=== PATIENT | female | born 1935 | race Caucasian/White ===

== ENCOUNTER 2021-11-30 20:02 | Inpatient (IN) | payer OTHER ==
--- NOTE | 2021-11-30 20:32 | RAD REPORT ---
EXAM DESCRIPTION: CT - Ct Stroke Brain Wo Cont - 11/30/2021 8:24 pm CLINICAL HISTORY: tia COMPARISON: none TECHNIQUE: Computed axial tomography of the head was obtained. All CT scans are performed using dose optimization technique as appropriate and may include automated exposure control or mA/KV adjustment according to patient size. FINDINGS: An intracranial bleed is not seen . The ventricles are normal in caliber. No extra-axial fluid collection is noted. Low-density involving the right caudate has the appearance of an old lacunar infarction. . Small low-density area right parietal lobe also probably old infarcti on. Mild low-density within periventricular, deep and subcortical white matter likely ischemic changes se condary to small vessel disease Fluid within the sinuses/ mastoids is not seen. IMPRESSION: No acute intracranial abnormality is seen. If patient's symptoms persist MRI of the bra in would be recommended. Dr Luciano of the emergency room was notified at 8:26 p.m. November 30, 2021
[2021-11-30 20:39] LABS: Absolute Lymphocytes (CBC) 2.1 K/uL (0.7-4.9); Hematocrit 34.5 % (36.0-45.0); MPV 8.5 fL (7.6-11.3)
[2021-11-30 20:40] LABS: Protime INR 1.15
--- NOTE | 2021-11-30 20:44 | ER ---
Nurse's Notes [facility] Name: Tosha Osorio Age: 85 yrs Sex: Female : 1935 Arrival Date: 11/30/2021 Time: 20:13 Bed 7 Private MD: Diagnosis: Cerebral infarction, unspecified;Aphasia Presentation: 11/30 20:24 Chief complaint: EMS states: pt has hx of strokes and polio, normally able to sm5 communicate, around 7pm tonight started to be unable to speak and having R sided weakness. multiple falls daily. ecchymosis to L side of her forehead. Coronavirus screen: At this time, the client does not indicate any symptoms associated with coronavirus-19. Ebola Screen: No symptoms or risks identified at this time. Initial Sepsis Screen: Does the patient meet any 2 criteria? No. Patient's initial sepsis screen is negative. Does the patient have a suspected source of infection? No. Patient's initial sepsis screen is negative. Risk Assessment: Do you want to hurt yourself or someone else? Patient reports no desire to harm self or others. Onset of symptoms was November 30, 2021 at 19:00. 20:24 Method Of Arrival: EMS: [facility] 5 20:24 Acuity: SULAIMAN 2 sm5 20:30 An acute neurological deficit is present. The patients blood glucose was checked before mk arriving to the hospital and was found to be normal. Triage Assessment: 20:30 The onset of the patients symptoms was November 30, 2021 at 19:00. mk 20:30 Neuro: Reports unable to report. mk 20:32 General: Appears emaciated, Behavior is cooperative. Pain: Unable to use pain scale. sm5 Aphasic. Neuro: Stroke Activation: Physician: Stroke Attending; Name: Mustapha; Notified At: 20:15; Arrived At: Physician: Chief Stroke Resident; Name: ; Notified At: 20:15; Arrived At: Physician: Stroke Resident; Name: ; Notified At: 20:15; Arrived At: Physician: ED Attending; Name: ; Notified At: 20:15; Arrived At: Physician: ED Resident; Name: ; Notified At: 20:15; Arrived At: Historical: - Allergies: 20:30 Morphine; sm5 20:30 venlafaxine; sm5 20:30 Codeine; sm5 - PMHx: 20:30 Polio; Cerebrovascular accident; Hypertensive disorder; sm5 - Immunization history:: Adult Immunizations unknown. - Family history:: not pertinent. - Social history:: Smoking status: unknown. Screenin:28 Abuse screen: Denies threats or abuse. Denies injuries from another. Nutritional sm5 screening: No deficits noted. Tuberculosis screening: No symptoms or risk factors identified. Fall Risk Fall in past 12 months (25 points). Secondary diagnosis (15 points) impaired mobility, CVA, IV access (20 points). Ambulatory Aid- None/Bed Rest/Nurse Assist (0 pts). Gait- Weak (10 pts.). Mental Status- Oriented to own ability (0 pts). Total Peacock Fall Scale indicates High Risk Score (45 or more points). Fall prevention measures have been instituted. Side Rails Up X 2 Frequent Obs/Assessments Occuring Family Present and informed to notify staff if the need to leave the bedside. Assessment: 20:15 General: Appears ill, slender. Pain: Unable to use pain scale. Patient appears quiet. mk 20:15 VAN Scoring: Arm Drift: Flaccid/no antigravity The patient has not been NPO before mk screening. The patient is currently on the following diet: REGULAR AT HOME NPO AT HOSPITAL The patient exhibits slurred or garbled speech. Provider notified of the indication for Speech Therapy consult. The patient is exhibiting difficulty speaking. Provider notified of the indication for Speech Therapy consult. The patient does not exhibit difficulty understanding words. The patient is able to swallow own secretions with no drooling or need for suction. UNABLE TO DO DUE TO LACK OF REPSONSES UNABLE TO DO DUE TO LACK OF RESPONSE The patient failed the bedside swallow screening. The patient will be kept NPO until cleared by Speech Therapy or Physician. Provider notified of bedside swallow screening results: Wilber Luciano MD. 20:15 Neuro: Level of Consciousness is awake, obeys commands, Oriented to pt quiet unable to mk assess . Office Support are equal bilaterally Weakness in left leg(s) Facial droop on right, Reports. Cardiovascular: Heart tones S1 S2 Capillary refill < 3 seconds Clubbing of nail beds is absent JVD is absent Patient's skin is warm and dry. Pulses are 2+ in right radial artery, right dorsalis pedis artery, left radial artery and left dorsalis pedis artery Rhythm is atrial fibrillation. Respiratory: Airway is patent Respiratory effort is even, unlabored, Respiratory pattern is regular, symmetrical. GI: Abdomen is flat, non-distended. GI: Abdomen is Bowel sounds present X 4 quads. Abd is soft and non tender. : No signs and/or symptoms were reported regarding the genitourinary system. Derm: Skin is fragile, Skin is dry, Skin is pink, warm \T\ dry. Skin temperature is warm Wound noted back, right arm and left arm Wound is R hand skin tear, R arm petechiae, bruising L AC, abrasion R shoulder. Musculoskeletal: Circulation, motion, and sensation intact. Capillary refill < 3 seconds, Range of motion: intact in all extremities. 21:00 T-PA (Activase) Screening: Indications: Definite evidence of stroke, ischemic, embolic, mk or hypertensive: Yes. Treatment will start within 4.5 hours onset of symptoms: Yes. No evidence of intracranial hemorrhage or CT of head and no evidence of peripheral hemorrhage or recent CVA: Yes. Consent for thrombolytic therapy: Yes. 22:00 Reassessment: Patient and/or family updated on plan of care and expected duration. Pain mk level reassessed. 22:28 General:. Vital Signs: 20:24 BP 172 / 81; Pulse 72; Resp 22; Pulse Ox 100% on R/A; Weight 33.57 kg; sm5 20:39 BP 186 / 73; Pulse 105; Resp 17; Pulse Ox 100% on R/A; mk 20:52 BP 159 / 101; Pulse 85; Resp 23; Pulse Ox 100% on R/A; mk 21:03 BP 181 / 81; Pulse 92; Resp 18; Pulse Ox 100% on R/A; mk 21:08 BP 165 / 115; Pulse 81; Resp 16; Pulse Ox 100% on R/A; mk 21:13 BP 182 / 91; Pulse 80; Resp 25; Pulse Ox 100% on R/A; mk 21:18 BP 170 / 94; Pulse 86; Resp 18; Pulse Ox 97% ; mk 21:23 BP 179 / 92; Pulse 95; Resp 18; Pulse Ox 98% ; tw5 21:28 BP 175 / 102; Pulse 95; Resp 21; Pulse Ox 98% on R/A; tw5 21:33 BP 121 / 88; Pulse 96; Resp 22; Pulse Ox 98% on R/A; tw5 21:38 BP 152 / 89; Pulse 88; Resp 19; Pulse Ox 99% on R/A; tw5 21:43 BP 182 / 99; Pulse 99; Resp 21; Pulse Ox 99% on R/A; mk 21:48 BP 185 / 108; Pulse 95; Resp 29; Pulse Ox 97% on R/A; mk 21:53 BP 173 / 89; Pulse 96; Resp 21; Pulse Ox 97% on R/A; mk 21:58 BP 176 / 109; Pulse 93; Resp 28; Pulse Ox 98% on R/A; mk 22:03 BP 183 / 95; Pulse 94; Resp 18; Pulse Ox 96% on R/A; mk 22:18 BP 183 / 95; Pulse 94; Resp 18; Pulse Ox 99% on R/A; mk 22:30 BP 182 / 94; Pulse 96; Resp 18; Pulse Ox 98% on R/A; mk 22:45 BP 182 / 92; Pulse 92; Resp 27; Pulse Ox 98% on R/A; mk 23:00 BP 163 / 100; Pulse 98; Resp 21; Pulse Ox 99% on R/A; mk 23:15 BP 146 / 111; Pulse 94; Resp 21; Pulse Ox 98% on R/A; mk 23:30 BP 140 / 92; Pulse 95; Resp 18; Pulse Ox 98% on R/A; mk 23:45 BP 172 / 93; Pulse 95; Resp 18; Pulse Ox 98% on R/A; mk 12/01 00:00 BP 172 / 93; Pulse 95; Resp 18; Pulse Ox 98% on R/A; mk 00:15 BP 160 / 102; Pulse 94; Resp 18; Pulse Ox 99% on R/A; mk 00:30 BP 171 / 109; Pulse 100; Resp 23; Pulse Ox 100% on R/A; mk 00:45 BP 171 / 102; Pulse 100; Resp 18; Pulse Ox 100% on R/A; mk 01:00 BP 176 / 86; Pulse 100; Resp 23; Pulse Ox 100% on R/A; mk 01:15 BP 115 / 107; Pulse 102; Resp 18; Pulse Ox 100% ; mk 01:30 BP 178 / 107; Pulse 90; Resp 20; Pulse Ox 100% on R/A; mk Roselien Coma Score: 11/30 20:39 Eye Response: spontaneous(4). Verbal Response: none(1). Motor Response: localizes mk pain(5). Total: . 20:52 Eye Response: spontaneous(4). Verbal Response: none(1). Motor Response: obeys mk commands(6). Total: . 21:03 Eye Response: spontaneous(4). Verbal Response: none(1). Motor Response: obeys mk commands(6). Total: . :08 Eye Response: spontaneous(4). Verbal Response: none(1). Motor Response: obeys mk commands(6). Total: . :13 Eye Response: spontaneous(4). Verbal Response: none(1). Motor Response: obeys mk commands(6). Total: . 21:18 Eye Response: spontaneous(4). Verbal Response: none(1). Motor Response: localizes mk pain(5). Total: . 21:23 Eye Response: spontaneous(4). Verbal Response: none(1). Motor Response: obeys mk commands(6). Total: . :28 Eye Response: spontaneous(4). Verbal Response: none(1). Motor Response: obeys mk commands(6). Total: . 21:33 Eye Response: spontaneous(4). Verbal Response: incomprehensible(2). Motor Response: mk obeys commands(6). Total: . 21:38 Eye Response: spontaneous(4). Verbal Response: incomprehensible(2). Motor Response: mk obeys commands(6). Total: 12. 21:43 Eye Response: spontaneous(4). Verbal Response: incomprehensible(2). Motor Response: mk obeys commands(6). Total: . 21:48 Eye Response: spontaneous(4). Verbal Response: incomprehensible(2). Motor Response: mk obeys commands(6). Total: . 21:53 Eye Response: spontaneous(4). Verbal Response: none(1). Motor Response: obeys mk commands(6). Total: . 21:58 Eye Response: spontaneous(4). Verbal Response: incomprehensible(2). Motor Response: mk obeys commands(6). Total: 12. 22:03 Eye Response: spontaneous(4). Verbal Response: incomprehensible(2). Motor Response: mk obeys commands(6). Total: 12. 22:18 Eye Response: spontaneous(4). Verbal Response: incomprehensible(2). Motor Response: mk obeys commands(6). Total: 12. 22:30 Eye Response: spontaneous(4). Verbal Response: oriented(5). Motor Response: obeys mk commands(6). Total: 15. 22:45 Eye Response: spontaneous(4). Verbal Response: incomprehensible(2). Motor Response: mk obeys commands(6). Total: 12. 23:00 Eye Response: spontaneous(4). Verbal Response: incomprehensible(2). Motor Response: mk localizes pain(5). Total: 11. 23:15 Eye Response: spontaneous(4). Verbal Response: incomprehensible(2). Motor Response: mk obeys commands(6). Total: 12. 23:30 Eye Response: spontaneous(4). Verbal Response: incomprehensible(2). Motor Response: mk obeys commands(6). Total: 12. 23:45 Eye Response: spontaneous(4). Verbal Response: incomprehensible(2). Motor Response: mk obeys commands(6). Total: 12. 10 00:00 Eye Response: spontaneous(4). Verbal Response: incomprehensible(2). Motor Response: mk obeys commands(6). Total: 12. 00:15 Eye Response: spontaneous(4). Verbal Response: incomprehensible(2). Motor Response: mk obeys commands(6). Total: 12. 00:30 Eye Response: spontaneous(4). Verbal Response: incomprehensible(2). Motor Response: mk obeys commands(6). Total: 12. 00:45 Eye Response: spontaneous(4). Verbal Response: incomprehensible(2). Motor Response: mk obeys commands(6). Total: 12. 01:00 Eye Response: spontaneous(4). Verbal Response: incomprehensible(2). Motor Response: mk obeys commands(6). Total: 12. 01:15 Eye Response: spontaneous(4). Verbal Response: incomprehensible(2). Motor Response: mk obeys commands(6). Total: 12. 01:30 Eye Response: spontaneous(4). Verbal Response: incomprehensible(2). Motor Response: mk obeys commands(6). Total: 12. NIH Stroke Scale Scores: 11/30 20:15 NIHSS Score: 21 mk 20:44 NIHSS Score: 21 fredrick 21:02 NIHSS Score: 21 mk 21:08 NIHSS Score: 22 mk 21:13 NIHSS Score: 21 mk 21:18 NIHSS Score: 20 mk 21:23 NIHSS Score: 20 mk 21:28 NIHSS Score: 17 mk 21:33 NIHSS Score: 18 mk 21:38 NIHSS Score: 17 mk 21:43 NIHSS Score: 19 mk 21:48 NIHSS Score: 20 mk 21:53 NIHSS Score: 17 mk 21:58 NIHSS Score: 17 mk 22:03 NIHSS Score: 17 mk 22:15 NIHSS Score: 16 mk 22:30 NIHSS Score: 20 mk 22:45 NIHSS Score: 16 mk 23:00 NIHSS Score: 17 mk 23:15 NIHSS Score: 17 mk 23:30 NIHSS Score: 16 mk /10 00:00 NIHSS Score: 18 mk 00:30 NIHSS Score: 15 mk 01:00 NIHSS Score: 16 mk 01:30 NIHSS Score: 16 mk ED Course: 11/30 20:13 Patient arrived in ED. fredrick 20:13 Wilber Luciano MD is Attending Physician. fredrick 20:20 Inserted saline lock: 18 gauge in right antecubital area, using aseptic technique. mk 20:20 Maintain EMS IV. Dressing intact. Good blood return noted. Gauge \T\ site: 20G RAC. mk dressing change . 20:24 CT Stroke Brain w/o Contrast In Process Unspecified. EDMS 20:24 Coco Soriano, JACQUELINE is Primary Nurse. sm5 20:28 Triage completed. sm5 20:29 Arm band placed on right wrist. sm5 20:29 Patient has correct armband on for positive identification. Placed in gown. Bed in low sm5 position. Call light in reach. Side rails up X2. monitoring tech on. Pulse ox on. NIBP on. 20:48 XRAY Chest (1 view) In Process Unspecified. EDMS 21:30 NT PRO-BNP Sent. mk 21:30 Troponin (emerg Dept Use Only) Sent. mk 22:27 Laz Gill MD is Hospitalizing Provider. fredrick 22:49 Jake Isaac MD is Hospitalizing Provider. la1 23:41 CT Head Angio In Process Unspecified. EDMS 23:41 CT Neck Angio In Process Unspecified. EDMS 12/01 01:23 Patient admitted, IV remains in place. mk 01:28 Primary Nurse role handed off by Coco Soriano RN mk 01:28 Ana M Arshad, JACQUELINE is Primary Nurse. 05:20 No provider procedures requiring assistance completed. diana Administered Medications: 11/30 20:30 Drug: NS 0.9% 1000 ml Route: IV; Rate: 1 bolus; Site: right antecubital; 20:30 Drug: foLIC Acid 1 mg Route: IVPB; Site: right antecubital; tw5 21:02 Drug: ACTIvase (alteplase) {Co-Signature: diana (Ana M Arshad RN).} Route: IV tw5 Thrombolytics; Rate: calculated rate; Infused Over: 60 mins; 21:10 Drug: Labetalol 5 mg Route: IVP; Site: right antecubital; mk 23:21 Follow up: Response: No adverse reaction tw5 23:21 Not Given (Hemodynamic Parameters; no longer appropriate, ordered to maintain BP tw5 parameters during TPA): Labetalol 5 mg IVP once Outcome: 20:43 ER care complete, transfer ordered by . fredrick 22:30 Decision to Hospitalize by Provider. [facility] 12/01 01:23 Admitted to ICU accompanied by nurse, via stretcher, on monitor, with chart, Report diana called to Daphnie PHILLIPS critical Instructed on the need for admit. 01:35 Patient left the ED. diana NIH Stroke Scale - NIH Stroke Score Date: 11/30/2021 Time: 20:15 Total Score = 21 1a. Level of Consciousness (LOC) - 1(Not Alert) 1b. Level of Consciousness (LOC) (Month \T\ Age) - 2(Neither) 1c. LOC Commands (Open \T\ Closes Eyes/Quarter Lining Smoother) - 1(One) 2. Best Gaze (Lateral Gaze Paresis) - 1(Partial gaze palsy) 3. Visual Field Loss - 0(No visual loss) 4. Facial Palsy - 3(Complete paralysis) 5a. Left Arm: Motor (10-second hold) - 0(No drift) 5b. Right Arm: Motor (10-second hold) - 4(No movement) 6a. Left Leg: Motor (5-second hold - always test supine) - 0(No drift) 6b. Right Leg: Motor (5-second hold - always test supine) - 4(No movement) 7. Limb Ataxia (finger/nose \T\ heel/khoury - test with eyes open) - 0(Absent) 8. Sensory Loss (pinprick arms/legs/face) - 1(Mild to moderate loss) 9. Best Language: Aphasia (description/naming/reading) - 2(Severe aphasia) 10. Dysarthria (speech clarity - read or repeat words) - 1(Mild to Moderate) 11. Extinction and Inattention (visual/tactile/auditory/spatial/personal) - 1(Present) Initials: NIH Stroke Scale - NIH Stroke Score Date: 11/30/2021 Time: 20:44 Total Score = 21 1a. Level of Consciousness (LOC) - 1(Not Alert) 1b. Level of Consciousness (LOC) (Month \T\ Age) - 2(Neither) 1c. LOC Commands (Open \T\ Closes Eyes/Quarter Lining Smoother) - 1(One) 2. Best Gaze (Lateral Gaze Paresis) - 1(Partial gaze palsy) 3. Visual Field Loss - 0(No visual loss) 4. Facial Palsy - 3(Complete paralysis) 5a. Left Arm: Motor (10-second hold) - 0(No drift) 5b. Right Arm: Motor (10-second hold) - 4(No movement) 6a. Left Leg: Motor (5-second hold - always test supine) - 0(No drift) 6b. Right Leg: Motor (5-second hold - always test supine) - 4(No movement) 7. Limb Ataxia (finger/nose \T\ heel/khoury - test with eyes open) - 0(Absent) 8. Sensory Loss (pinprick arms/legs/face) - 1(Mild to moderate loss) 9. Best Language: Aphasia (description/naming/reading) - 2(Severe aphasia) 10. Dysarthria (speech clarity - read or repeat words) - 1(Mild to Moderate) 11. Extinction and Inattention (visual/tactile/auditory/spatial/personal) - 1(Present) Initials: [facility] NIH Stroke Scale - NIH Stroke Score Date: 11/30/2021 Time: 21:02 Total Score = 21 1a. Level of Consciousness (LOC) - 0(Alert) 1b. Level of Consciousness (LOC) (Month \T\ Age) - 2(Neither) 1c. LOC Commands (Open \T\ Closes Eyes/Quarter Lining Smoother) - 1(One) 2. Best Gaze (Lateral Gaze Paresis) - 1(Partial gaze palsy) 3. Visual Field Loss - 0(No visual loss) 4. Facial Palsy - 3(Complete paralysis) 5a. Left Arm: Motor (10-second hold) - 0(No drift) 5b. Right Arm: Motor (10-second hold) - 4(No movement) 6a. Left Leg: Motor (5-second hold - always test supine) - 0(No drift) 6b. Right Leg: Motor (5-second hold - always test supine) - 4(No movement) 7. Limb Ataxia (finger/nose \T\ heel/khoury - test with eyes open) - 0(Absent) 8. Sensory Loss (pinprick arms/legs/face) - 2(Severe to total loss) 9. Best Language: Aphasia (description/naming/reading) - 2(Severe aphasia) 10. Dysarthria (speech clarity - read or repeat words) - 1(Mild to Moderate) 11. Extinction and Inattention (visual/tactile/auditory/spatial/personal) - 1(Present) Initials: NIH Stroke Scale - NIH Stroke Score Date: 11/30/2021 Time: 21:08 Total Score = 22 1a. Level of Consciousness (LOC) - 0(Alert) 1b. Level of Consciousness (LOC) (Month \T\ Age) - 2(Neither) 1c. LOC Commands (Open \T\ Closes Eyes/Quarter Lining Smoother) - 1(One) 2. Best Gaze (Lateral Gaze Paresis) - 1(Partial gaze palsy) 3. Visual Field Loss - 0(No visual loss) 4. Facial Palsy - 3(Complete paralysis) 5a. Left Arm: Motor (10-second hold) - 0(No drift) 5b. Right Arm: Motor (10-second hold) - 4(No movement) 6a. Left Leg: Motor (5-second hold - always test supine) - 0(No drift) 6b. Right Leg: Motor (5-second hold - always test supine) - 4(No movement) 7. Limb Ataxia (finger/nose \T\ heel/khoury - test with eyes open) - 0(Absent) 8. Sensory Loss (pinprick arms/legs/face) - 1(Mild to moderate loss) 9. Best Language: Aphasia (description/naming/reading) - 3(Mute, global aphasia) 10. Dysarthria (speech clarity - read or repeat words) - 2(Severe) 11. Extinction and Inattention (visual/tactile/auditory/spatial/personal) - 1(Present) Initials: NIH Stroke Scale - NIH Stroke Score Date: 11/30/2021 Time: 21:13 Total Score = 21 1a. Level of Consciousness (LOC) - 0(Alert) 1b. Level of Consciousness (LOC) (Month \T\ Age) - 2(Neither) 1c. LOC Commands (Open \T\ Closes Eyes/Quarter Lining Smoother) - 1(One) 2. Best Gaze (Lateral Gaze Paresis) - 1(Partial gaze palsy) 3. Visual Field Loss - 0(No visual loss) 4. Facial Palsy - 3(Complete paralysis) 5a. Left Arm: Motor (10-second hold) - 0(No drift) 5b. Right Arm: Motor (10-second hold) - 4(No movement) 6a. Left Leg: Motor (5-second hold - always test supine) - 0(No drift) 6b. Right Leg: Motor (5-second hold - always test supine) - 4(No movement) 7. Limb Ataxia (finger/nose \T\ heel/khoury - test with eyes open) - 0(Absent) 8. Sensory Loss (pinprick arms/legs/face) - 1(Mild to moderate loss) 9. Best Language: Aphasia (description/naming/reading) - 3(Mute, global aphasia) 10. Dysarthria (speech clarity - read or repeat words) - 1(Mild to Moderate) 11. Extinction and Inattention (visual/tactile/auditory/spatial/personal) - 1(Present) Initials: NIH Stroke Scale - NIH Stroke Score Date: 11/30/2021 Time: 21:18 Total Score = 20 1a. Level of Consciousness (LOC) - 0(Alert) 1b. Level of Consciousness (LOC) (Month \T\ Age) - 2(Neither) 1c. LOC Commands (Open \T\ Closes Eyes/Quarter Lining Smoother) - 1(One) 2. Best Gaze (Lateral Gaze Paresis) - 1(Partial gaze palsy) 3. Visual Field Loss - 0(No visual loss) 4. Facial Palsy - 3(Complete paralysis) 5a. Left Arm: Motor (10-second hold) - 0(No drift) 5b. Right Arm: Motor (10-second hold) - 4(No movement) 6a. Left Leg: Motor (5-second hold - always test supine) - 0(No drift) 6b. Right Leg: Motor (5-second hold - always test supine) - 4(No movement) 7. Limb Ataxia (finger/nose \T\ heel/khoury - test with eyes open) - 0(Absent) 8. Sensory Loss (pinprick arms/legs/face) - 1(Mild to moderate loss) 9. Best Language: Aphasia (description/naming/reading) - 2(Severe aphasia) 10. Dysarthria (speech clarity - read or repeat words) - 1(Mild to Moderate) 11. Extinction and Inattention (visual/tactile/auditory/spatial/personal) - 1(Present) Initials: NIH Stroke Scale - NIH Stroke Score Date: 11/30/2021 Time: 21:23 Total Score = 20 1a. Level of Consciousness (LOC) - 0(Alert) 1b. Level of Consciousness (LOC) (Month \T\ Age) - 2(Neither) 1c. LOC Commands (Open \T\ Closes Eyes/Quarter Lining Smoother) - 1(One) 2. Best Gaze (Lateral Gaze Paresis) - 0(Normal) 3. Visual Field Loss - 1(Partial hemianopia) 4. Facial Palsy - 3(Complete paralysis) 5a. Left Arm: Motor (10-second hold) - 0(No drift) 5b. Right Arm: Motor (10-second hold) - 3(No effort against gravity) 6a. Left Leg: Motor (5-second hold - always test supine) - 0(No drift) 6b. Right Leg: Motor (5-second hold - always test supine) - 4(No movement) 7. Limb Ataxia (finger/nose \T\ heel/khoury - test with eyes open) - 0(Absent) 8. Sensory Loss (pinprick arms/legs/face) - 1(Mild to moderate loss) 9. Best Language: Aphasia (description/naming/reading) - 3(Mute, global aphasia) 10. Dysarthria (speech clarity - read or repeat words) - 1(Mild to Moderate) 11. Extinction and Inattention (visual/tactile/auditory/spatial/personal) - 1(Present) Initials: NIH Stroke Scale - NIH Stroke Score Date: 11/30/2021 Time: 21:28 Total Score = 17 1a. Level of Consciousness (LOC) - 0(Alert) 1b. Level of Consciousness (LOC) (Month \T\ Age) - 0(Both) 1c. LOC Commands (Open \T\ Closes Eyes/Quarter Lining Smoother) - 2(Neither) 2. Best Gaze (Lateral Gaze Paresis) - 1(Partial gaze palsy) 3. Visual Field Loss - 2(Complete hemianopia) 4. Facial Palsy - 0(Normal) 5a. Left Arm: Motor (10-second hold) - 0(No drift) 5b. Right Arm: Motor (10-second hold) - 2(Drift, some effort against gravity) 6a. Left Leg: Motor (5-second hold - always test supine) - 0(No drift) 6b. Right Leg: Motor (5-second hold - always test supine) - 4(No movement) 7. Limb Ataxia (finger/nose \T\ heel/khoury - test with eyes open) - 0(Absent) 8. Sensory Loss (pinprick arms/legs/face) - 1(Mild to moderate loss) 9. Best Language: Aphasia (description/naming/reading) - 2(Severe aphasia) 10. Dysarthria (speech clarity - read or repeat words) - 2(Severe) 11. Extinction and Inattention (visual/tactile/auditory/spatial/personal) - 1(Present) Initials: NIH Stroke Scale - NIH Stroke Score Date: 11/30/2021 Time: 21:33 Total Score = 18 1a. Level of Consciousness (LOC) - 0(Alert) 1b. Level of Consciousness (LOC) (Month \T\ Age) - 2(Neither) 1c. LOC Commands (Open \T\ Closes Eyes/Quarter Lining Smoother) - 1(One) 2. Best Gaze (Lateral Gaze Paresis) - 1(Partial gaze palsy) 3. Visual Field Loss - 0(No visual loss) 4. Facial Palsy - 3(Complete paralysis) 5a. Left Arm: Motor (10-second hold) - 0(No drift) 5b. Right Arm: Motor (10-second hold) - 2(Drift, some effort against gravity) 6a. Left Leg: Motor (5-second hold - always test supine) - 1(Drift) 6b. Right Leg: Motor (5-second hold - always test supine) - 3(No effort against gravity) 7. Limb Ataxia (finger/nose \T\ heel/khoury - test with eyes open) - 0(Absent) 8. Sensory Loss (pinprick arms/legs/face) - 1(Mild to moderate loss) 9. Best Language: Aphasia (description/naming/reading) - 1(Mild to moderate aphasia) 10. Dysarthria (speech clarity - read or repeat words) - 2(Severe) 11. Extinction and Inattention (visual/tactile/auditory/spatial/personal) - 1(Present) Initials: NIH Stroke Scale - NIH Stroke Score Date: 11/30/2021 Time: 21:38 Total Score = 17 1a. Level of Consciousness (LOC) - 0(Alert) 1b. Level of Consciousness (LOC) (Month \T\ Age) - 2(Neither) 1c. LOC Commands (Open \T\ Closes Eyes/Quarter Lining Smoother) - 0(Both) 2. Best Gaze (Lateral Gaze Paresis) - 1(Partial gaze palsy) 3. Visual Field Loss - 0(No visual loss) 4. Facial Palsy - 3(Complete paralysis) 5a. Left Arm: Motor (10-second hold) - 0(No drift) 5b. Right Arm: Motor (10-second hold) - 2(Drift, some effort against gravity) 6a. Left Leg: Motor (5-second hold - always test supine) - 1(Drift) 6b. Right Leg: Motor (5-second hold - always test supine) - 3(No effort against gravity) 7. Limb Ataxia (finger/nose \T\ heel/khoury - test with eyes open) - 0(Absent) 8. Sensory Loss (pinprick arms/legs/face) - 1(Mild to moderate loss) 9. Best Language: Aphasia (description/naming/reading) - 2(Severe aphasia) 10. Dysarthria (speech clarity - read or repeat words) - 1(Mild to Moderate) 11. Extinction and Inattention (visual/tactile/auditory/spatial/personal) - 1(Present) Initials: NIH Stroke Scale - NIH Stroke Score Date: 11/30/2021 Time: 21:43 Total Score = 19 1a. Level of Consciousness (LOC) - 0(Alert) 1b. Level of Consciousness (LOC) (Month \T\ Age) - 2(Neither) 1c. LOC Commands (Open \T\ Closes Eyes/Quarter Lining Smoother) - 0(Both) 2. Best Gaze (Lateral Gaze Paresis) - 1(Partial gaze palsy) 3. Visual Field Loss - 0(No visual loss) 4. Facial Palsy - 3(Complete paralysis) 5a. Left Arm: Motor (10-second hold) - 0(No drift) 5b. Right Arm: Motor (10-second hold) - 4(No movement) 6a. Left Leg: Motor (5-second hold - always test supine) - 0(No drift) 6b. Right Leg: Motor (5-second hold - always test supine) - 3(No effort against gravity) 7. Limb Ataxia (finger/nose \T\ heel/khoury - test with eyes open) - 0(Absent) 8. Sensory Loss (pinprick arms/legs/face) - 1(Mild to moderate loss) 9. Best Language: Aphasia (description/naming/reading) - 3(Mute, global aphasia) 10. Dysarthria (speech clarity - read or repeat words) - 1(Mild to Moderate) 11. Extinction and Inattention (visual/tactile/auditory/spatial/personal) - 1(Present) Initials: NIH Stroke Scale - NIH Stroke Score Date: 11/30/2021 Time: 21:48 Total Score = 20 1a. Level of Consciousness (LOC) - 0(Alert) 1b. Level of Consciousness (LOC) (Month \T\ Age) - 2(Neither) 1c. LOC Commands (Open \T\ Closes Eyes/Quarter Lining Smoother) - 0(Both) 2. Best Gaze (Lateral Gaze Paresis) - 1(Partial gaze palsy) 3. Visual Field Loss - 0(No visual loss) 4. Facial Palsy - 3(Complete paralysis) 5a. Left Arm: Motor (10-second hold) - 0(No drift) 5b. Right Arm: Motor (10-second hold) - 4(No movement) 6a. Left Leg: Motor (5-second hold - always test supine) - 0(No drift) 6b. Right Leg: Motor (5-second hold - always test supine) - 4(No movement) 7. Limb Ataxia (finger/nose \T\ heel/khoury - test with eyes open) - 0(Absent) 8. Sensory Loss (pinprick arms/legs/face) - 1(Mild to moderate loss) 9. Best Language: Aphasia (description/naming/reading) - 3(Mute, global aphasia) 10. Dysarthria (speech clarity - read or repeat words) - 1(Mild to Moderate) 11. Extinction and Inattention (visual/tactile/auditory/spatial/personal) - 1(Present) Initials: NIH Stroke Scale - NIH Stroke Score Date: 11/30/2021 Time: 21:53 Total Score = 17 1a. Level of Consciousness (LOC) - 0(Alert) 1b. Level of Consciousness (LOC) (Month \T\ Age) - 2(Neither) 1c. LOC Commands (Open \T\ Closes Eyes/Quarter Lining Smoother) - 1(One) 2. Best Gaze (Lateral Gaze Paresis) - 1(Partial gaze palsy) 3. Visual Field Loss - 0(No visual loss) 4. Facial Palsy - 3(Complete paralysis) 5a. Left Arm: Motor (10-second hold) - 0(No drift) 5b. Right Arm: Motor (10-second hold) - 2(Drift, some effort against gravity) 6a. Left Leg: Motor (5-second hold - always test supine) - 0(No drift) 6b. Right Leg: Motor (5-second hold - always test supine) - 3(No effort against gravity) 7. Limb Ataxia (finger/nose \T\ heel/khoury - test with eyes open) - 0(Absent) 8. Sensory Loss (pinprick arms/legs/face) - 1(Mild to moderate loss) 9. Best Language: Aphasia (description/naming/reading) - 2(Severe aphasia) 10. Dysarthria (speech clarity - read or repeat words) - 1(Mild to Moderate) 11. Extinction and Inattention (visual/tactile/auditory/spatial/personal) - 1(Present) Initials: NIH Stroke Scale - NIH Stroke Score Date: 11/30/2021 Time: 21:58 Total Score = 17 1a. Level of Consciousness (LOC) - 0(Alert) 1b. Level of Consciousness (LOC) (Month \T\ Age) - 2(Neither) 1c. LOC Commands (Open \T\ Closes Eyes/Quarter Lining Smoother) - 0(Both) 2. Best Gaze (Lateral Gaze Paresis) - 1(Partial gaze palsy) 3. Visual Field Loss - 0(No visual loss) 4. Facial Palsy - 3(Complete paralysis) 5a. Left Arm: Motor (10-second hold) - 0(No drift) 5b. Right Arm: Motor (10-second hold) - 2(Drift, some effort against gravity) 6a. Left Leg: Motor (5-second hold - always test supine) - 0(No drift) 6b. Right Leg: Motor (5-second hold - always test supine) - 4(No movement) 7. Limb Ataxia (finger/nose \T\ heel/khoury - test with eyes open) - 0(Absent) 8. Sensory Loss (pinprick arms/legs/face) - 1(Mild to moderate loss) 9. Best Language: Aphasia (description/naming/reading) - 2(Severe aphasia) 10. Dysarthria (speech clarity - read or repeat words) - 1(Mild to Moderate) 11. Extinction and Inattention (visual/tactile/auditory/spatial/personal) - 1(Present) Initials: NIH Stroke Scale - NIH Stroke Score Date: 11/30/2021 Time: 22:03 Total Score = 17 1a. Level of Consciousness (LOC) - 0(Alert) 1b. Level of Consciousness (LOC) (Month \T\ Age) - 2(Neither) 1c. LOC Commands (Open \T\ Closes Eyes/Quarter Lining Smoother) - 0(Both) 2. Best Gaze (Lateral Gaze Paresis) - 1(Partial gaze palsy) 3. Visual Field Loss - 0(No visual loss) 4. Facial Palsy - 2(Partial paralysis) 5a. Left Arm: Motor (10-second hold) - 0(No drift) 5b. Right Arm: Motor (10-second hold) - 2(Drift, some effort against gravity) 6a. Left Leg: Motor (5-second hold - always test supine) - 1(Drift) 6b. Right Leg: Motor (5-second hold - always test supine) - 3(No effort against gravity) 7. Limb Ataxia (finger/nose \T\ heel/khoury - test with eyes open) - 0(Absent) 8. Sensory Loss (pinprick arms/legs/face) - 2(Severe to total loss) 9. Best Language: Aphasia (description/naming/reading) - 2(Severe aphasia) 10. Dysarthria (speech clarity - read or repeat words) - 1(Mild to Moderate) 11. Extinction and Inattention (visual/tactile/auditory/spatial/personal) - 1(Present) Initials: NIH Stroke Scale - NIH Stroke Score Date: 11/30/2021 Time: 22:15 Total Score = 16 1a. Level of Consciousness (LOC) - 0(Alert) 1b. Level of Consciousness (LOC) (Month \T\ Age) - 2(Neither) 1c. LOC Commands (Open \T\ Closes Eyes/Quarter Lining Smoother) - 0(Both) 2. Best Gaze (Lateral Gaze Paresis) - 1(Partial gaze palsy) 3. Visual Field Loss - 0(No visual loss) 4. Facial Palsy - 2(Partial paralysis) 5a. Left Arm: Motor (10-second hold) - 0(No drift) 5b. Right Arm: Motor (10-second hold) - 2(Drift, some effort against gravity) 6a. Left Leg: Motor (5-second hold - always test supine) - 0(No drift) 6b. Right Leg: Motor (5-second hold - always test supine) - 3(No effort against gravity) 7. Limb Ataxia (finger/nose \T\ heel/khoury - test with eyes open) - 0(Absent) 8. Sensory Loss (pinprick arms/legs/face) - 2(Severe to total loss) 9. Best Language: Aphasia (description/naming/reading) - 2(Severe aphasia) 10. Dysarthria (speech clarity - read or repeat words) - 1(Mild to Moderate) 11. Extinction and Inattention (visual/tactile/auditory/spatial/personal) - 1(Present) Initials: NIH Stroke Scale - NIH Stroke Score Date: 11/30/2021 Time: 22:30 Total Score = 20 1a. Level of Consciousness (LOC) - 0(Alert) 1b. Level of Consciousness (LOC) (Month \T\ Age) - 2(Neither) 1c. LOC Commands (Open \T\ Closes Eyes/Quarter Lining Smoother) - 1(One) 2. Best Gaze (Lateral Gaze Paresis) - 2(Forced deviation) 3. Visual Field Loss - 0(No visual loss) 4. Facial Palsy - 3(Complete paralysis) 5a. Left Arm: Motor (10-second hold) - 0(No drift) 5b. Right Arm: Motor (10-second hold) - 2(Drift, some effort against gravity) 6a. Left Leg: Motor (5-second hold - always test supine) - 0(No drift) 6b. Right Leg: Motor (5-second hold - always test supine) - 3(No effort against gravity) 7. Limb Ataxia (finger/nose \T\ heel/khoury - test with eyes open) - 0(Absent) 8. Sensory Loss (pinprick arms/legs/face) - 2(Severe to total loss) 9. Best Language: Aphasia (description/naming/reading) - 2(Severe aphasia) 10. Dysarthria (speech clarity - read or repeat words) - 2(Severe) 11. Extinction and Inattention (visual/tactile/auditory/spatial/personal) - 1(Present) Initials: NIH Stroke Scale - NIH Stroke Score Date: 11/30/2021 Time: 22:45 Total Score = 16 1a. Level of Consciousness (LOC) - 0(Alert) 1b. Level of Consciousness (LOC) (Month \T\ Age) - 2(Neither) 1c. LOC Commands (Open \T\ Closes Eyes/Quarter Lining Smoother) - 0(Both) 2. Best Gaze (Lateral Gaze Paresis) - 1(Partial gaze palsy) 3. Visual Field Loss - 0(No visual loss) 4. Facial Palsy - 3(Complete paralysis) 5a. Left Arm: Motor (10-second hold) - 0(No drift) 5b. Right Arm: Motor (10-second hold) - 1(Drift) 6a. Left Leg: Motor (5-second hold - always test supine) - 0(No drift) 6b. Right Leg: Motor (5-second hold - always test supine) - 3(No effort against gravity) 7. Limb Ataxia (finger/nose \T\ heel/khoury - test with eyes open) - 0(Absent) 8. Sensory Loss (pinprick arms/legs/face) - 1(Mild to moderate loss) 9. Best Language: Aphasia (description/naming/reading) - 2(Severe aphasia) 10. Dysarthria (speech clarity - read or repeat words) - 2(Severe) 11. Extinction and Inattention (visual/tactile/auditory/spatial/personal) - 1(Present) Initials: NIH Stroke Scale - NIH Stroke Score Date: 11/30/2021 Time: 23:00 Total Score = 17 1a. Level of Consciousness (LOC) - 0(Alert) 1b. Level of Consciousness (LOC) (Month \T\ Age) - 2(Neither) 1c. LOC Commands (Open \T\ Closes Eyes/Quarter Lining Smoother) - 1(One) 2. Best Gaze (Lateral Gaze Paresis) - 2(Forced deviation) 3. Visual Field Loss - 0(No visual loss) 4. Facial Palsy - 1(Minor Paralysis) 5a. Left Arm: Motor (10-second hold) - 0(No drift) 5b. Right Arm: Motor (10-second hold) - 2(Drift, some effort against gravity) 6a. Left Leg: Motor (5-second hold - always test supine) - 0(No drift) 6b. Right Leg: Motor (5-second hold - always test supine) - 3(No effort against gravity) 7. Limb Ataxia (finger/nose \T\ heel/khoury - test with eyes open) - 0(Absent) 8. Sensory Loss (pinprick arms/legs/face) - 1(Mild to moderate loss) 9. Best Language: Aphasia (description/naming/reading) - 3(Mute, global aphasia) 10. Dysarthria (speech clarity - read or repeat words) - 1(Mild to Moderate) 11. Extinction and Inattention (visual/tactile/auditory/spatial/personal) - 1(Present) Initials: NIH Stroke Scale - NIH Stroke Score Date: 11/30/2021 Time: 23:15 Total Score = 17 1a. Level of Consciousness (LOC) - 0(Alert) 1b. Level of Consciousness (LOC) (Month \T\ Age) - 2(Neither) 1c. LOC Commands (Open \T\ Closes Eyes/Quarter Lining Smoother) - 0(Both) 2. Best Gaze (Lateral Gaze Paresis) - 1(Partial gaze palsy) 3. Visual Field Loss - 0(No visual loss) 4. Facial Palsy - 3(Complete paralysis) 5a. Left Arm: Motor (10-second hold) - 0(No drift) 5b. Right Arm: Motor (10-second hold) - 2(Drift, some effort against gravity) 6a. Left Leg: Motor (5-second hold - always test supine) - 1(Drift) 6b. Right Leg: Motor (5-second hold - always test supine) - 3(No effort against gravity) 7. Limb Ataxia (finger/nose \T\ heel/khoury - test with eyes open) - 0(Absent) 8. Sensory Loss (pinprick arms/legs/face) - 1(Mild to moderate loss) 9. Best Language: Aphasia (description/naming/reading) - 2(Severe aphasia) 10. Dysarthria (speech clarity - read or repeat words) - 1(Mild to Moderate) 11. Extinction and Inattention (visual/tactile/auditory/spatial/personal) - 1(Present) Initials: NIH Stroke Scale - NIH Stroke Score Date: 11/30/2021 Time: 23:30 Total Score = 16 1a. Level of Consciousness (LOC) - 0(Alert) 1b. Level of Consciousness (LOC) (Month \T\ Age) - 2(Neither) 1c. LOC Commands (Open \T\ Closes Eyes/Quarter Lining Smoother) - 1(One) 2. Best Gaze (Lateral Gaze Paresis) - 1(Partial gaze palsy) 3. Visual Field Loss - 0(No visual loss) 4. Facial Palsy - 2(Partial paralysis) 5a. Left Arm: Motor (10-second hold) - 0(No drift) 5b. Right Arm: Motor (10-second hold) - 2(Drift, some effort against gravity) 6a. Left Leg: Motor (5-second hold - always test supine) - 0(No drift) 6b. Right Leg: Motor (5-second hold - always test supine) - 3(No effort against gravity) 7. Limb Ataxia (finger/nose \T\ heel/khoury - test with eyes open) - 0(Absent) 8. Sensory Loss (pinprick arms/legs/face) - 1(Mild to moderate loss) 9. Best Language: Aphasia (description/naming/reading) - 2(Severe aphasia) 10. Dysarthria (speech clarity - read or repeat words) - 1(Mild to Moderate) 11. Extinction and Inattention (visual/tactile/auditory/spatial/personal) - 1(Present) Initials: NIH Stroke Scale - NIH Stroke Score Date: 12/01/2021 Time: 00:00 Total Score = 18 1a. Level of Consciousness (LOC) - 0(Alert) 1b. Level of Consciousness (LOC) (Month \T\ Age) - 2(Neither) 1c. LOC Commands (Open \T\ Closes Eyes/Quarter Lining Smoother) - 0(Both) 2. Best Gaze (Lateral Gaze Paresis) - 1(Partial gaze palsy) 3. Visual Field Loss - 1(Partial hemianopia) 4. Facial Palsy - 3(Complete paralysis) 5a. Left Arm: Motor (10-second hold) - 0(No drift) 5b. Right Arm: Motor (10-second hold) - 2(Drift, some effort against gravity) 6a. Left Leg: Motor (5-second hold - always test supine) - 0(No drift) 6b. Right Leg: Motor (5-second hold - always test supine) - 3(No effort against gravity) 7. Limb Ataxia (finger/nose \T\ heel/khoury - test with eyes open) - 0(Absent) 8. Sensory Loss (pinprick arms/legs/face) - 1(Mild to moderate loss) 9. Best Language: Aphasia (description/naming/reading) - 3(Mute, global aphasia) 10. Dysarthria (speech clarity - read or repeat words) - 1(Mild to Moderate) 11. Extinction and Inattention (visual/tactile/auditory/spatial/personal) - 1(Present) Initials: NIH Stroke Scale - NIH Stroke Score Date: 12/01/2021 Time: 00:30 Total Score = 15 1a. Level of Consciousness (LOC) - 0(Alert) 1b. Level of Consciousness (LOC) (Month \T\ Age) - 2(Neither) 1c. LOC Commands (Open \T\ Closes Eyes/Quarter Lining Smoother) - 0(Both) 2. Best Gaze (Lateral Gaze Paresis) - 1(Partial gaze palsy) 3. Visual Field Loss - 0(No visual loss) 4. Facial Palsy - 1(Minor Paralysis) 5a. Left Arm: Motor (10-second hold) - 0(No drift) 5b. Right Arm: Motor (10-second hold) - 2(Drift, some effort against gravity) 6a. Left Leg: Motor (5-second hold - always test supine) - 1(Drift) 6b. Right Leg: Motor (5-second hold - always test supine) - 3(No effort against gravity) 7. Limb Ataxia (finger/nose \T\ heel/khoury - test with eyes open) - 0(Absent) 8. Sensory Loss (pinprick arms/legs/face) - 1(Mild to moderate loss) 9. Best Language: Aphasia (description/naming/reading) - 2(Severe aphasia) 10. Dysarthria (speech clarity - read or repeat words) - 1(Mild to Moderate) 11. Extinction and Inattention (visual/tactile/auditory/spatial/personal) - 1(Present) Initials: NIH Stroke Scale - NIH Stroke Score Date: 12/01/2021 Time: 01:00 Total Score = 16 1a. Level of Consciousness (LOC) - 0(Alert) 1b. Level of Consciousness (LOC) (Month \T\ Age) - 2(Neither) 1c. LOC Commands (Open \T\ Closes Eyes/Quarter Lining Smoother) - 0(Both) 2. Best Gaze (Lateral Gaze Paresis) - 1(Partial gaze palsy) 3. Visual Field Loss - 1(Partial hemianopia) 4. Facial Palsy - 3(Complete paralysis) 5a. Left Arm: Motor (10-second hold) - 0(No drift) 5b. Right Arm: Motor (10-second hold) - 1(Drift) 6a. Left Leg: Motor (5-second hold - always test supine) - 0(No drift) 6b. Right Leg: Motor (5-second hold - always test supine) - 3(No effort against gravity) 7. Limb Ataxia (finger/nose \T\ heel/khoury - test with eyes open) - 0(Absent) 8. Sensory Loss (pinprick arms/legs/face) - 1(Mild to moderate loss) 9. Best Language: Aphasia (description/naming/reading) - 2(Severe aphasia) 10. Dysarthria (speech clarity - read or repeat words) - 1(Mild to Moderate) 11. Extinction and Inattention (visual/tactile/auditory/spatial/personal) - 1(Present) Initials: NIH Stroke Scale - NIH Stroke Score Date: 12/01/2021 Time: 01:30 Total Score = 16 1a. Level of Consciousness (LOC) - 0(Alert) 1b. Level of Consciousness (LOC) (Month \T\ Age) - 2(Neither) 1c. LOC Commands (Open \T\ Closes Eyes/Quarter Lining Smoother) - 0(Both) 2. Best Gaze (Lateral Gaze Paresis) - 1(Partial gaze palsy) 3. Visual Field Loss - 0(No visual loss) 4. Facial Palsy - 2(Partial paralysis) 5a. Left Arm: Motor (10-second hold) - 0(No drift) 5b. Right Arm: Motor (10-second hold) - 2(Drift, some effort against gravity) 6a. Left Leg: Motor (5-second hold - always test supine) - 0(No drift) 6b. Right Leg: Motor (5-second hold - always test supine) - 3(No effort against gravity) 7. Limb Ataxia (finger/nose \T\ heel/khoury - test with eyes open) - 1(Present in one limb) 8. Sensory Loss (pinprick arms/legs/face) - 1(Mild to moderate loss) 9. Best Language: Aphasia (description/naming/reading) - 2(Severe aphasia) 10. Dysarthria (speech clarity - read or repeat words) - 1(Mild to Moderate) 11. Extinction and Inattention (visual/tactile/auditory/spatial/personal) - 1(Present) Initials: Signatures: Dispatcher [employer] Wilber Puckett MD MD cha Attema, Lee, CORPORATE SPECIALIST-C CORPORATE SPECIALIST-Cla1 Bessie Clark tw5 Coco Soriano RN RN [facility] Ana M Arshad RN RN mk Madeline Kotarski RN mk Corrections: (The following items were deleted from the chart) 11/30 22:29 20:15 Neuro: Level of Consciousness is awake, alert, Oriented to none mk non-verbal at time of assessment. 12/01 01:06 11/30 21:32 BP 121 / 88; Pulse 96bpm; Resp 22bpm; Pulse Ox 98% RA; tw5 tw5
--- NOTE | 2021-11-30 20:45 | EDPHYS ---
Physician Documentation [facility] Name: Tosha Osorio Age: 85 yrs Sex: Female : 1935 Arrival Date: 11/30/2021 Time: 20:13 Bed 7 Private MD: ED Physician Wilber Luciano HPI: 11/30 20:17 This 85 yrs old Female presents to ER via Unassigned with complaints of fredrick aphasic, right face and right arm flaccid. 20:17 The patient's problem is reported as altered mental status, confused, decreased fredrick responsiveness, a facial droop, on right, dysphasia, expressive aphasia. Onset: The symptoms/episode began/occurred 1.5 hour(s) ago. Duration: This was a single incident. Context: the episode(s) was witnessed, by family. The symptoms are alleviated by nothing. The symptoms are aggravated by nothing. The patient presents to the emergency department with a speech or higher order brain function problem, aphasia, paresthesias of the right upper extremity, right side of the face. Context: occurred at home. Associated signs and symptoms: The patient has no apparent associated signs or symptoms. Severity of symptoms: At their worst the symptoms were moderate in the emergency department the symptoms are unchanged. Associated signs and symptoms: The patient has no apparent associated signs or symptoms. Historical: - Allergies: 20:30 Morphine; sm5 20:30 venlafaxine; sm5 20:30 Codeine; sm5 - PMHx: 20:30 Polio; Cerebrovascular accident; Hypertensive disorder; sm5 - Immunization history:: Adult Immunizations unknown. - Family history:: not pertinent. - Social history:: Smoking status: unknown. ROS: 20:17 Constitutional: Negative for fever, chills, and weight loss, Eyes: Negative for injury, fredrick pain, redness, and discharge, ENT: Negative for injury, pain, and discharge, Neck: Negative for injury, pain, and swelling, Cardiovascular: Negative for chest pain, palpitations, and edema, Respiratory: Negative for shortness of breath, cough, wheezing, and pleuritic chest pain, Abdomen/GI: Negative for abdominal pain, nausea, vomiting, diarrhea, and constipation, Back: Negative for injury and pain, : Negative for injury, bleeding, discharge, and swelling, MS/Extremity: Negative for injury and deformity, Skin: Negative for injury, rash, and discoloration, Allergy/Immunology: Negative for hives, rash, and allergies, Endocrine: Negative for neck swelling, polydipsia, polyuria, polyphagia, and marked weight changes, Hematologic/Lymphatic: Negative for swollen nodes, abnormal bleeding, and unusual bruising. 20:17 Neuro: Positive for speech changes, weakness, of the face and right arm. Exam: 20:17 Constitutional: This is a well developed, well nourished patient who is awake, alert, fredrick and in no acute distress. Head/Face: Normocephalic, atraumatic. Eyes: Pupils equal round and reactive to light, extra-ocular motions intact. Lids and lashes normal. Conjunctiva and sclera are non-icteric and not injected. Cornea within normal limits. Periorbital areas with no swelling, redness, or edema. ENT: Nares patent. No nasal discharge, no septal abnormalities noted. Tympanic membranes are normal and external auditory canals are clear. Oropharynx with no redness, swelling, or masses, exudates, or evidence of obstruction, uvula midline. Mucous membranes moist. Neck: Trachea midline, no thyromegaly or masses palpated, and no cervical lymphadenopathy. Supple, full range of motion without nuchal rigidity, or vertebral point tenderness. No Meningismus. Chest/axilla: Normal chest wall appearance and motion. Nontender with no deformity. No lesions are appreciated. Cardiovascular: Regular rate and rhythm with a normal S1 and S2. No gallops, murmurs, or rubs. Normal PMI, no JVD. No pulse deficits. Respiratory: Lungs have equal breath sounds bilaterally, clear to auscultation and percussion. No rales, rhonchi or wheezes noted. No increased work of breathing, no retractions or nasal flaring. Abdomen/GI: Soft, non-tender, with normal bowel sounds. No distension or tympany. No guarding or rebound. No evidence of tenderness throughout. Back: No spinal tenderness. No costovertebral tenderness. Full range of motion. Skin: Warm, dry with normal turgor. Normal color with no rashes, no lesions, and no evidence of cellulitis. MS/ Extremity: Pulses equal, no cyanosis. Neurovascular intact. Full, normal range of motion. Psych: Awake, alert, with orientation to person, place and time. Behavior, mood, and affect are within normal limits. 20:17 Neuro: Orientation: is normal, Mentation: appropriate for stated age, Memory: is normal, appropriate for stated age, no acute changes, Cranial nerves: is grossly normal based on the patient's age, no acute changes, Cerebellar function: unable to test, Motor: Strength is 1/5 in the right arm and right leg, Sensation: unable to test, Gait: not tested. seizure activity, is not displayed by the patient. 20:24 ECG was reviewed by the Attending Physician. [facility] 20:42 Radiologist reports: neg fredrick Vital Signs: 20:24 BP 172 / 81; Pulse 72; Resp 22; Pulse Ox 100% on R/A; Weight 33.57 kg; sm5 20:39 BP 186 / 73; Pulse 105; Resp 17; Pulse Ox 100% on R/A; mk 20:52 BP 159 / 101; Pulse 85; Resp 23; Pulse Ox 100% on R/A; mk 21:03 BP 181 / 81; Pulse 92; Resp 18; Pulse Ox 100% on R/A; mk 21:08 BP 165 / 115; Pulse 81; Resp 16; Pulse Ox 100% on R/A; mk 21:13 BP 182 / 91; Pulse 80; Resp 25; Pulse Ox 100% on R/A; mk 21:18 BP 170 / 94; Pulse 86; Resp 18; Pulse Ox 97% ; mk 21:23 BP 179 / 92; Pulse 95; Resp 18; Pulse Ox 98% ; tw5 21:28 BP 175 / 102; Pulse 95; Resp 21; Pulse Ox 98% on R/A; tw5 21:33 BP 121 / 88; Pulse 96; Resp 22; Pulse Ox 98% on R/A; tw5 21:38 BP 152 / 89; Pulse 88; Resp 19; Pulse Ox 99% on R/A; tw5 21:43 BP 182 / 99; Pulse 99; Resp 21; Pulse Ox 99% on R/A; mk 21:48 BP 185 / 108; Pulse 95; Resp 29; Pulse Ox 97% on R/A; mk 21:53 BP 173 / 89; Pulse 96; Resp 21; Pulse Ox 97% on R/A; mk 21:58 BP 176 / 109; Pulse 93; Resp 28; Pulse Ox 98% on R/A; mk 22:03 BP 183 / 95; Pulse 94; Resp 18; Pulse Ox 96% on R/A; mk 22:18 BP 183 / 95; Pulse 94; Resp 18; Pulse Ox 99% on R/A; mk 22:30 BP 182 / 94; Pulse 96; Resp 18; Pulse Ox 98% on R/A; mk 22:45 BP 182 / 92; Pulse 92; Resp 27; Pulse Ox 98% on R/A; mk 23:00 BP 163 / 100; Pulse 98; Resp 21; Pulse Ox 99% on R/A; mk 23:15 BP 146 / 111; Pulse 94; Resp 21; Pulse Ox 98% on R/A; mk 23:30 BP 140 / 92; Pulse 95; Resp 18; Pulse Ox 98% on R/A; 23:45 BP 172 / 93; Pulse 95; Resp 18; Pulse Ox 98% on R/A; 12/01 00:00 BP 172 / 93; Pulse 95; Resp 18; Pulse Ox 98% on R/A; 00:15 BP 160 / 102; Pulse 94; Resp 18; Pulse Ox 99% on R/A; 00:30 BP 171 / 109; Pulse 100; Resp 23; Pulse Ox 100% on R/A; 00:45 BP 171 / 102; Pulse 100; Resp 18; Pulse Ox 100% on R/A; 01:00 BP 176 / 86; Pulse 100; Resp 23; Pulse Ox 100% on R/A; 01:15 BP 115 / 107; Pulse 102; Resp 18; Pulse Ox 100% ; 01:30 BP 178 / 107; Pulse 90; Resp 20; Pulse Ox 100% on R/A; NIH Stroke Scale Scores: 11/30 20:15 NIHSS Score: 21 mk 20:44 NIHSS Score: 21 fredrick 21:02 NIHSS Score: 21 mk 21:08 NIHSS Score: 22 mk 21:13 NIHSS Score: 21 mk 21:18 NIHSS Score: 20 mk 21:23 NIHSS Score: 20 mk 21:28 NIHSS Score: 17 mk 21:33 NIHSS Score: 18 mk 21:38 NIHSS Score: 17 mk 21:43 NIHSS Score: 19 mk 21:48 NIHSS Score: 20 mk 21:53 NIHSS Score: 17 mk 21:58 NIHSS Score: 17 mk 22:03 NIHSS Score: 17 mk 22:15 NIHSS Score: 16 mk 22:30 NIHSS Score: 20 mk 22:45 NIHSS Score: 16 mk 23:00 NIHSS Score: 17 mk 23:15 NIHSS Score: 17 mk 23:30 NIHSS Score: 16 mk 12/01 00:00 NIHSS Score: 18 mk 00:30 NIHSS Score: 15 mk 01:00 NIHSS Score: 16 mk 01:30 NIHSS Score: 16 mk Weston Coma Score: 11/30 20:39 Eye Response: spontaneous(4). Verbal Response: none(1). Motor Response: localizes mk pain(5). Total: . 20:52 Eye Response: spontaneous(4). Verbal Response: none(1). Motor Response: obeys mk commands(6). Total: . 21:03 Eye Response: spontaneous(4). Verbal Response: none(1). Motor Response: obeys mk commands(6). Total: . 21:08 Eye Response: spontaneous(4). Verbal Response: none(1). Motor Response: obeys mk commands(6). Total: . 21:13 Eye Response: spontaneous(4). Verbal Response: none(1). Motor Response: obeys mk commands(6). Total: . :18 Eye Response: spontaneous(4). Verbal Response: none(1). Motor Response: localizes mk pain(5). Total: . 21:23 Eye Response: spontaneous(4). Verbal Response: none(1). Motor Response: obeys mk commands(6). Total: . :28 Eye Response: spontaneous(4). Verbal Response: none(1). Motor Response: obeys mk commands(6). Total: . 21:33 Eye Response: spontaneous(4). Verbal Response: incomprehensible(2). Motor Response: mk obeys commands(6). Total: . 21:38 Eye Response: spontaneous(4). Verbal Response: incomprehensible(2). Motor Response: mk obeys commands(6). Total: . 21:43 Eye Response: spontaneous(4). Verbal Response: incomprehensible(2). Motor Response: mk obeys commands(6). Total: . 21:48 Eye Response: spontaneous(4). Verbal Response: incomprehensible(2). Motor Response: mk obeys commands(6). Total: 12. 21:53 Eye Response: spontaneous(4). Verbal Response: none(1). Motor Response: obeys mk commands(6). Total: 11. 21:58 Eye Response: spontaneous(4). Verbal Response: incomprehensible(2). Motor Response: mk obeys commands(6). Total: 12. 22:03 Eye Response: spontaneous(4). Verbal Response: incomprehensible(2). Motor Response: mk obeys commands(6). Total: 12. 22:18 Eye Response: spontaneous(4). Verbal Response: incomprehensible(2). Motor Response: mk obeys commands(6). Total: 12. 22:30 Eye Response: spontaneous(4). Verbal Response: oriented(5). Motor Response: obeys mk commands(6). Total: 15. 22:45 Eye Response: spontaneous(4). Verbal Response: incomprehensible(2). Motor Response: mk obeys commands(6). Total: 12. 23:00 Eye Response: spontaneous(4). Verbal Response: incomprehensible(2). Motor Response: mk localizes pain(5). Total: 11. 23:15 Eye Response: spontaneous(4). Verbal Response: incomprehensible(2). Motor Response: mk obeys commands(6). Total: 12. 23:30 Eye Response: spontaneous(4). Verbal Response: incomprehensible(2). Motor Response: mk obeys commands(6). Total: 12. 23:45 Eye Response: spontaneous(4). Verbal Response: incomprehensible(2). Motor Response: mk obeys commands(6). Total: 12. 10 00:00 Eye Response: spontaneous(4). Verbal Response: incomprehensible(2). Motor Response: mk obeys commands(6). Total: 12. 00:15 Eye Response: spontaneous(4). Verbal Response: incomprehensible(2). Motor Response: mk obeys commands(6). Total: 12. 00:30 Eye Response: spontaneous(4). Verbal Response: incomprehensible(2). Motor Response: mk obeys commands(6). Total: 12. 00:45 Eye Response: spontaneous(4). Verbal Response: incomprehensible(2). Motor Response: mk obeys commands(6). Total: 12. 01:00 Eye Response: spontaneous(4). Verbal Response: incomprehensible(2). Motor Response: mk obeys commands(6). Total: 12. 01:15 Eye Response: spontaneous(4). Verbal Response: incomprehensible(2). Motor Response: mk obeys commands(6). Total: 12. 01:30 Eye Response: spontaneous(4). Verbal Response: incomprehensible(2). Motor Response: mk obeys commands(6). Total: 12. MDM: 11/30 20:13 Patient medically screened. fredrick 20:23 Differential diagnosis: CVA, TIA, Dementia. Data reviewed: vital signs, nurses notes, [facility] lab test result(s), EKG, radiologic studies, CT scan, plain films. Data interpreted: monitoring analyst: rate is 80 beats/min, rhythm is regular, Pulse oximetry: on room air is 95 %. Test interpretation: by ED physician or midlevel provider: ECG, plain radiologic studies. Counseling: I had a detailed discussion with the patient and/or guardian regarding: the historical points, exam findings, and any diagnostic results supporting the discharge/admit diagnosis, lab results, radiology results. 11/30 20:16 Order name: Basic Metabolic Panel; Complete Time: 21:49 [facility] 11/30 20:16 Order name: CBC with Diff; Complete Time: 21:24 [facility] 11/30 20:16 Order name: LFT's; Complete Time: 21:49 [facility] 11/30 20:16 Order name: Magnesium; Complete Time: 21:49 [facility] 11/30 20:16 Order name: NT PRO-BNP; Complete Time: 21:49 [facility] 11/30 20:16 Order name: PT-INR; Complete Time: 21:24 [facility] 11/30 20:16 Order name: Troponin (emerg Dept Use Only); Complete Time: 21:49 [facility] 11/30 20:16 Order name: XRAY Chest (1 view); Complete Time: 21:24 [facility] 11/30 20:16 Order name: CT Stroke Brain w/o Contrast; Complete Time: 21:24 [facility] 11/30 20:16 Order name: SARS-COV-2 RT PCR (Document "Date of Onset" if Symptomatic); Complete Time: [facility] :11/30 20:42 Order name: CT Head Angio [facility] 11/30 20:42 Order name: CT Neck Angio [facility] 11/30 20:16 Order name: EKG; Complete Time: 20:17 [facility] 11/30 20:16 Order name: Cardiac monitoring; Complete Time: : [facility] 11/30 20:16 Order name: EKG - Nurse/Tech; Complete Time: : [facility] 11/30 20:16 Order name: IV Saline Lock; Complete Time: 21: [facility] 11/30 20:16 Order name: Labs collected and sent; Complete Time: : [facility] 11/30 20:16 Order name: O2 Per Protocol; Complete Time: : [facility] 11/30 20:16 Order name: O2 Sat Monitoring; Complete Time: : [facility] 11/30 21:52 Order name: IV Saline Lock - Large Bore; Complete Time: 23:20 [facility] EC:24 Rate is 79 beats/min. Rhythm is regular. QRS Thompson is Normal. QRS interval is normal. QT fredrick interval is normal. No Q waves. T waves are Normal. No ST changes noted. Clinical impression: NSR w/ Non-specific ST/T Changes and No evidence of ischemia. Interpreted by me. Reviewed by me. Administered Medications: 20:30 Drug: NS 0.9% 1000 ml Route: IV; Rate: 1 bolus; Site: right antecubital; mk 20:30 Drug: foLIC Acid 1 mg Route: IVPB; Site: right antecubital; tw5 21:02 Drug: ACTIvase (alteplase) {Co-Signature: diana (Ana M Arshad RN).} Route: IV tw5 Thrombolytics; Rate: calculated rate; Infused Over: 60 mins; 21:10 Drug: Labetalol 5 mg Route: IVP; Site: right antecubital; mk 23:21 Follow up: Response: No adverse reaction tw5 23:21 Not Given (Hemodynamic Parameters; no longer appropriate, ordered to maintain BP tw5 parameters during TPA): Labetalol 5 mg IVP once Disposition Summary: 11/30/21 22:30 Hospitalization Ordered Hospitalization Status: Inpatient Admission fredrick Location: Intensive Care Unit fredrick Condition: Stable(11/30/21 22:30) fredrick Problem: new(11/30/21 22:30) fredrick Symptoms: have improved(11/30/21 22:30) fredrick Bed/Room Type: Standard fredrick Provider: Jake Isaac(11/30/21 22:49) ghada Room Assignment: 1-(12/01/21 00:33) cg Diagnosis - Cerebral infarction, unspecified(11/30/21 22:30) fredrick - Aphasia fredrick Forms: - Medication Reconciliation Form fredrick - SBAR form fredrick NIH Stroke Scale - NIH Stroke Score Date: 11/30/2021 Time: 20:15 Total Score = 21 1a. Level of Consciousness (LOC) - 1(Not Alert) 1b. Level of Consciousness (LOC) (Month \\T\\ Age) - 2(Neither) 1c. LOC Commands (Open \\T\\ Closes Eyes/Compensation Coordinator) - 1(One) 2. Best Gaze (Lateral Gaze Paresis) - 1(Partial gaze palsy) 3. Visual Field Loss - 0(No visual loss) 4. Facial Palsy - 3(Complete paralysis) 5a. Left Arm: Motor (10-second hold) - 0(No drift) 5b. Right Arm: Motor (10-second hold) - 4(No movement) 6a. Left Leg: Motor (5-second hold - always test supine) - 0(No drift) 6b. Right Leg: Motor (5-second hold - always test supine) - 4(No movement) 7. Limb Ataxia (finger/nose \\T\\ heel/khoury - test with eyes open) - 0(Absent) 8. Sensory Loss (pinprick arms/legs/face) - 1(Mild to moderate loss) 9. Best Language: Aphasia (description/naming/reading) - 2(Severe aphasia) 10. Dysarthria (speech clarity - read or repeat words) - 1(Mild to Moderate) 11. Extinction and Inattention (visual/tactile/auditory/spatial/personal) - 1(Present) Initials: NIH Stroke Scale - NIH Stroke Score Date: 11/30/2021 Time: 20:44 Total Score = 21 1a. Level of Consciousness (LOC) - 1(Not Alert) 1b. Level of Consciousness (LOC) (Month \\T\\ Age) - 2(Neither) 1c. LOC Commands (Open \\T\\ Closes Eyes/Compensation Coordinator) - 1(One) 2. Best Gaze (Lateral Gaze Paresis) - 1(Partial gaze palsy) 3. Visual Field Loss - 0(No visual loss) 4. Facial Palsy - 3(Complete paralysis) 5a. Left Arm: Motor (10-second hold) - 0(No drift) 5b. Right Arm: Motor (10-second hold) - 4(No movement) 6a. Left Leg: Motor (5-second hold - always test supine) - 0(No drift) 6b. Right Leg: Motor (5-second hold - always test supine) - 4(No movement) 7. Limb Ataxia (finger/nose \\T\\ heel/khoury - test with eyes open) - 0(Absent) 8. Sensory Loss (pinprick arms/legs/face) - 1(Mild to moderate loss) 9. Best Language: Aphasia (description/naming/reading) - 2(Severe aphasia) 10. Dysarthria (speech clarity - read or repeat words) - 1(Mild to Moderate) 11. Extinction and Inattention (visual/tactile/auditory/spatial/personal) - 1(Present) Initials: [facility] NIH Stroke Scale - NIH Stroke Score Date: 11/30/2021 Time: 21:02 Total Score = 21 1a. Level of Consciousness (LOC) - 0(Alert) 1b. Level of Consciousness (LOC) (Month \\T\\ Age) - 2(Neither) 1c. LOC Commands (Open \\T\\ Closes Eyes/Compensation Coordinator) - 1(One) 2. Best Gaze (Lateral Gaze Paresis) - 1(Partial gaze palsy) 3. Visual Field Loss - 0(No visual loss) 4. Facial Palsy - 3(Complete paralysis) 5a. Left Arm: Motor (10-second hold) - 0(No drift) 5b. Right Arm: Motor (10-second hold) - 4(No movement) 6a. Left Leg: Motor (5-second hold - always test supine) - 0(No drift) 6b. Right Leg: Motor (5-second hold - always test supine) - 4(No movement) 7. Limb Ataxia (finger/nose \\T\\ heel/khoury - test with eyes open) - 0(Absent) 8. Sensory Loss (pinprick arms/legs/face) - 2(Severe to total loss) 9. Best Language: Aphasia (description/naming/reading) - 2(Severe aphasia) 10. Dysarthria (speech clarity - read or repeat words) - 1(Mild to Moderate) 11. Extinction and Inattention (visual/tactile/auditory/spatial/personal) - 1(Present) Initials: NIH Stroke Scale - NIH Stroke Score Date: 11/30/2021 Time: 21:08 Total Score = 22 1a. Level of Consciousness (LOC) - 0(Alert) 1b. Level of Consciousness (LOC) (Month \\T\\ Age) - 2(Neither) 1c. LOC Commands (Open \\T\\ Closes Eyes/Compensation Coordinator) - 1(One) 2. Best Gaze (Lateral Gaze Paresis) - 1(Partial gaze palsy) 3. Visual Field Loss - 0(No visual loss) 4. Facial Palsy - 3(Complete paralysis) 5a. Left Arm: Motor (10-second hold) - 0(No drift) 5b. Right Arm: Motor (10-second hold) - 4(No movement) 6a. Left Leg: Motor (5-second hold - always test supine) - 0(No drift) 6b. Right Leg: Motor (5-second hold - always test supine) - 4(No movement) 7. Limb Ataxia (finger/nose \\T\\ heel/khoury - test with eyes open) - 0(Absent) 8. Sensory Loss (pinprick arms/legs/face) - 1(Mild to moderate loss) 9. Best Language: Aphasia (description/naming/reading) - 3(Mute, global aphasia) 10. Dysarthria (speech clarity - read or repeat words) - 2(Severe) 11. Extinction and Inattention (visual/tactile/auditory/spatial/personal) - 1(Present) Initials: NIH Stroke Scale - NIH Stroke Score Date: 11/30/2021 Time: 21:13 Total Score = 21 1a. Level of Consciousness (LOC) - 0(Alert) 1b. Level of Consciousness (LOC) (Month \\T\\ Age) - 2(Neither) 1c. LOC Commands (Open \\T\\ Closes Eyes/Compensation Coordinator) - 1(One) 2. Best Gaze (Lateral Gaze Paresis) - 1(Partial gaze palsy) 3. Visual Field Loss - 0(No visual loss) 4. Facial Palsy - 3(Complete paralysis) 5a. Left Arm: Motor (10-second hold) - 0(No drift) 5b. Right Arm: Motor (10-second hold) - 4(No movement) 6a. Left Leg: Motor (5-second hold - always test supine) - 0(No drift) 6b. Right Leg: Motor (5-second hold - always test supine) - 4(No movement) 7. Limb Ataxia (finger/nose \\T\\ heel/khoury - test with eyes open) - 0(Absent) 8. Sensory Loss (pinprick arms/legs/face) - 1(Mild to moderate loss) 9. Best Language: Aphasia (description/naming/reading) - 3(Mute, global aphasia) 10. Dysarthria (speech clarity - read or repeat words) - 1(Mild to Moderate) 11. Extinction and Inattention (visual/tactile/auditory/spatial/personal) - 1(Present) Initials: NIH Stroke Scale - NIH Stroke Score Date: 11/30/2021 Time: 21:18 Total Score = 20 1a. Level of Consciousness (LOC) - 0(Alert) 1b. Level of Consciousness (LOC) (Month \\T\\ Age) - 2(Neither) 1c. LOC Commands (Open \\T\\ Closes Eyes/Compensation Coordinator) - 1(One) 2. Best Gaze (Lateral Gaze Paresis) - 1(Partial gaze palsy) 3. Visual Field Loss - 0(No visual loss) 4. Facial Palsy - 3(Complete paralysis) 5a. Left Arm: Motor (10-second hold) - 0(No drift) 5b. Right Arm: Motor (10-second hold) - 4(No movement) 6a. Left Leg: Motor (5-second hold - always test supine) - 0(No drift) 6b. Right Leg: Motor (5-second hold - always test supine) - 4(No movement) 7. Limb Ataxia (finger/nose \\T\\ heel/khoury - test with eyes open) - 0(Absent) 8. Sensory Loss (pinprick arms/legs/face) - 1(Mild to moderate loss) 9. Best Language: Aphasia (description/naming/reading) - 2(Severe aphasia) 10. Dysarthria (speech clarity - read or repeat words) - 1(Mild to Moderate) 11. Extinction and Inattention (visual/tactile/auditory/spatial/personal) - 1(Present) Initials: NIH Stroke Scale - NIH Stroke Score Date: 11/30/2021 Time: 21:23 Total Score = 20 1a. Level of Consciousness (LOC) - 0(Alert) 1b. Level of Consciousness (LOC) (Month \\T\\ Age) - 2(Neither) 1c. LOC Commands (Open \\T\\ Closes Eyes/Compensation Coordinator) - 1(One) 2. Best Gaze (Lateral Gaze Paresis) - 0(Normal) 3. Visual Field Loss - 1(Partial hemianopia) 4. Facial Palsy - 3(Complete paralysis) 5a. Left Arm: Motor (10-second hold) - 0(No drift) 5b. Right Arm: Motor (10-second hold) - 3(No effort against gravity) 6a. Left Leg: Motor (5-second hold - always test supine) - 0(No drift) 6b. Right Leg: Motor (5-second hold - always test supine) - 4(No movement) 7. Limb Ataxia (finger/nose \\T\\ heel/khoury - test with eyes open) - 0(Absent) 8. Sensory Loss (pinprick arms/legs/face) - 1(Mild to moderate loss) 9. Best Language: Aphasia (description/naming/reading) - 3(Mute, global aphasia) 10. Dysarthria (speech clarity - read or repeat words) - 1(Mild to Moderate) 11. Extinction and Inattention (visual/tactile/auditory/spatial/personal) - 1(Present) Initials: NIH Stroke Scale - NIH Stroke Score Date: 11/30/2021 Time: 21:28 Total Score = 17 1a. Level of Consciousness (LOC) - 0(Alert) 1b. Level of Consciousness (LOC) (Month \\T\\ Age) - 0(Both) 1c. LOC Commands (Open \\T\\ Closes Eyes/Compensation Coordinator) - 2(Neither) 2. Best Gaze (Lateral Gaze Paresis) - 1(Partial gaze palsy) 3. Visual Field Loss - 2(Complete hemianopia) 4. Facial Palsy - 0(Normal) 5a. Left Arm: Motor (10-second hold) - 0(No drift) 5b. Right Arm: Motor (10-second hold) - 2(Drift, some effort against gravity) 6a. Left Leg: Motor (5-second hold - always test supine) - 0(No drift) 6b. Right Leg: Motor (5-second hold - always test supine) - 4(No movement) 7. Limb Ataxia (finger/nose \\T\\ heel/khoury - test with eyes open) - 0(Absent) 8. Sensory Loss (pinprick arms/legs/face) - 1(Mild to moderate loss) 9. Best Language: Aphasia (description/naming/reading) - 2(Severe aphasia) 10. Dysarthria (speech clarity - read or repeat words) - 2(Severe) 11. Extinction and Inattention (visual/tactile/auditory/spatial/personal) - 1(Present) Initials: NIH Stroke Scale - NIH Stroke Score Date: 11/30/2021 Time: 21:33 Total Score = 18 1a. Level of Consciousness (LOC) - 0(Alert) 1b. Level of Consciousness (LOC) (Month \\T\\ Age) - 2(Neither) 1c. LOC Commands (Open \\T\\ Closes Eyes/Compensation Coordinator) - 1(One) 2. Best Gaze (Lateral Gaze Paresis) - 1(Partial gaze palsy) 3. Visual Field Loss - 0(No visual loss) 4. Facial Palsy - 3(Complete paralysis) 5a. Left Arm: Motor (10-second hold) - 0(No drift) 5b. Right Arm: Motor (10-second hold) - 2(Drift, some effort against gravity) 6a. Left Leg: Motor (5-second hold - always test supine) - 1(Drift) 6b. Right Leg: Motor (5-second hold - always test supine) - 3(No effort against gravity) 7. Limb Ataxia (finger/nose \\T\\ heel/khoury - test with eyes open) - 0(Absent) 8. Sensory Loss (pinprick arms/legs/face) - 1(Mild to moderate loss) 9. Best Language: Aphasia (description/naming/reading) - 1(Mild to moderate aphasia) 10. Dysarthria (speech clarity - read or repeat words) - 2(Severe) 11. Extinction and Inattention (visual/tactile/auditory/spatial/personal) - 1(Present) Initials: NIH Stroke Scale - NIH Stroke Score Date: 11/30/2021 Time: 21:38 Total Score = 17 1a. Level of Consciousness (LOC) - 0(Alert) 1b. Level of Consciousness (LOC) (Month \\T\\ Age) - 2(Neither) 1c. LOC Commands (Open \\T\\ Closes Eyes/Compensation Coordinator) - 0(Both) 2. Best Gaze (Lateral Gaze Paresis) - 1(Partial gaze palsy) 3. Visual Field Loss - 0(No visual loss) 4. Facial Palsy - 3(Complete paralysis) 5a. Left Arm: Motor (10-second hold) - 0(No drift) 5b. Right Arm: Motor (10-second hold) - 2(Drift, some effort against gravity) 6a. Left Leg: Motor (5-second hold - always test supine) - 1(Drift) 6b. Right Leg: Motor (5-second hold - always test supine) - 3(No effort against gravity) 7. Limb Ataxia (finger/nose \\T\\ heel/khoury - test with eyes open) - 0(Absent) 8. Sensory Loss (pinprick arms/legs/face) - 1(Mild to moderate loss) 9. Best Language: Aphasia (description/naming/reading) - 2(Severe aphasia) 10. Dysarthria (speech clarity - read or repeat words) - 1(Mild to Moderate) 11. Extinction and Inattention (visual/tactile/auditory/spatial/personal) - 1(Present) Initials: NIH Stroke Scale - NIH Stroke Score Date: 11/30/2021 Time: 21:43 Total Score = 19 1a. Level of Consciousness (LOC) - 0(Alert) 1b. Level of Consciousness (LOC) (Month \\T\\ Age) - 2(Neither) 1c. LOC Commands (Open \\T\\ Closes Eyes/Compensation Coordinator) - 0(Both) 2. Best Gaze (Lateral Gaze Paresis) - 1(Partial gaze palsy) 3. Visual Field Loss - 0(No visual loss) 4. Facial Palsy - 3(Complete paralysis) 5a. Left Arm: Motor (10-second hold) - 0(No drift) 5b. Right Arm: Motor (10-second hold) - 4(No movement) 6a. Left Leg: Motor (5-second hold - always test supine) - 0(No drift) 6b. Right Leg: Motor (5-second hold - always test supine) - 3(No effort against gravity) 7. Limb Ataxia (finger/nose \\T\\ heel/khoury - test with eyes open) - 0(Absent) 8. Sensory Loss (pinprick arms/legs/face) - 1(Mild to moderate loss) 9. Best Language: Aphasia (description/naming/reading) - 3(Mute, global aphasia) 10. Dysarthria (speech clarity - read or repeat words) - 1(Mild to Moderate) 11. Extinction and Inattention (visual/tactile/auditory/spatial/personal) - 1(Present) Initials: NIH Stroke Scale - NIH Stroke Score Date: 11/30/2021 Time: 21:48 Total Score = 20 1a. Level of Consciousness (LOC) - 0(Alert) 1b. Level of Consciousness (LOC) (Month \\T\\ Age) - 2(Neither) 1c. LOC Commands (Open \\T\\ Closes Eyes/Compensation Coordinator) - 0(Both) 2. Best Gaze (Lateral Gaze Paresis) - 1(Partial gaze palsy) 3. Visual Field Loss - 0(No visual loss) 4. Facial Palsy - 3(Complete paralysis) 5a. Left Arm: Motor (10-second hold) - 0(No drift) 5b. Right Arm: Motor (10-second hold) - 4(No movement) 6a. Left Leg: Motor (5-second hold - always test supine) - 0(No drift) 6b. Right Leg: Motor (5-second hold - always test supine) - 4(No movement) 7. Limb Ataxia (finger/nose \\T\\ heel/khoury - test with eyes open) - 0(Absent) 8. Sensory Loss (pinprick arms/legs/face) - 1(Mild to moderate loss) 9. Best Language: Aphasia (description/naming/reading) - 3(Mute, global aphasia) 10. Dysarthria (speech clarity - read or repeat words) - 1(Mild to Moderate) 11. Extinction and Inattention (visual/tactile/auditory/spatial/personal) - 1(Present) Initials: NIH Stroke Scale - NIH Stroke Score Date: 11/30/2021 Time: 21:53 Total Score = 17 1a. Level of Consciousness (LOC) - 0(Alert) 1b. Level of Consciousness (LOC) (Month \\T\\ Age) - 2(Neither) 1c. LOC Commands (Open \\T\\ Closes Eyes/Compensation Coordinator) - 1(One) 2. Best Gaze (Lateral Gaze Paresis) - 1(Partial gaze palsy) 3. Visual Field Loss - 0(No visual loss) 4. Facial Palsy - 3(Complete paralysis) 5a. Left Arm: Motor (10-second hold) - 0(No drift) 5b. Right Arm: Motor (10-second hold) - 2(Drift, some effort against gravity) 6a. Left Leg: Motor (5-second hold - always test supine) - 0(No drift) 6b. Right Leg: Motor (5-second hold - always test supine) - 3(No effort against gravity) 7. Limb Ataxia (finger/nose \\T\\ heel/khoury - test with eyes open) - 0(Absent) 8. Sensory Loss (pinprick arms/legs/face) - 1(Mild to moderate loss) 9. Best Language: Aphasia (description/naming/reading) - 2(Severe aphasia) 10. Dysarthria (speech clarity - read or repeat words) - 1(Mild to Moderate) 11. Extinction and Inattention (visual/tactile/auditory/spatial/personal) - 1(Present) Initials: NIH Stroke Scale - NIH Stroke Score Date: 11/30/2021 Time: 21:58 Total Score = 17 1a. Level of Consciousness (LOC) - 0(Alert) 1b. Level of Consciousness (LOC) (Month \\T\\ Age) - 2(Neither) 1c. LOC Commands (Open \\T\\ Closes Eyes/Compensation Coordinator) - 0(Both) 2. Best Gaze (Lateral Gaze Paresis) - 1(Partial gaze palsy) 3. Visual Field Loss - 0(No visual loss) 4. Facial Palsy - 3(Complete paralysis) 5a. Left Arm: Motor (10-second hold) - 0(No drift) 5b. Right Arm: Motor (10-second hold) - 2(Drift, some effort against gravity) 6a. Left Leg: Motor (5-second hold - always test supine) - 0(No drift) 6b. Right Leg: Motor (5-second hold - always test supine) - 4(No movement) 7. Limb Ataxia (finger/nose \\T\\ heel/khoury - test with eyes open) - 0(Absent) 8. Sensory Loss (pinprick arms/legs/face) - 1(Mild to moderate loss) 9. Best Language: Aphasia (description/naming/reading) - 2(Severe aphasia) 10. Dysarthria (speech clarity - read or repeat words) - 1(Mild to Moderate) 11. Extinction and Inattention (visual/tactile/auditory/spatial/personal) - 1(Present) Initials: mk NIH Stroke Scale - NIH Stroke Score Date: 11/30/2021 Time: 22:03 Total Score = 17 1a. Level of Consciousness (LOC) - 0(Alert) 1b. Level of Consciousness (LOC) (Month \\T\\ Age) - 2(Neither) 1c. LOC Commands (Open \\T\\ Closes Eyes/Compensation Coordinator) - 0(Both) 2. Best Gaze (Lateral Gaze Paresis) - 1(Partial gaze palsy) 3. Visual Field Loss - 0(No visual loss) 4. Facial Palsy - 2(Partial paralysis) 5a. Left Arm: Motor (10-second hold) - 0(No drift) 5b. Right Arm: Motor (10-second hold) - 2(Drift, some effort against gravity) 6a. Left Leg: Motor (5-second hold - always test supine) - 1(Drift) 6b. Right Leg: Motor (5-second hold - always test supine) - 3(No effort against gravity) 7. Limb Ataxia (finger/nose \\T\\ heel/khoury - test with eyes open) - 0(Absent) 8. Sensory Loss (pinprick arms/legs/face) - 2(Severe to total loss) 9. Best Language: Aphasia (description/naming/reading) - 2(Severe aphasia) 10. Dysarthria (speech clarity - read or repeat words) - 1(Mild to Moderate) 11. Extinction and Inattention (visual/tactile/auditory/spatial/personal) - 1(Present) Initials: NIH Stroke Scale - NIH Stroke Score Date: 11/30/2021 Time: 22:15 Total Score = 16 1a. Level of Consciousness (LOC) - 0(Alert) 1b. Level of Consciousness (LOC) (Month \\T\\ Age) - 2(Neither) 1c. LOC Commands (Open \\T\\ Closes Eyes/Compensation Coordinator) - 0(Both) 2. Best Gaze (Lateral Gaze Paresis) - 1(Partial gaze palsy) 3. Visual Field Loss - 0(No visual loss) 4. Facial Palsy - 2(Partial paralysis) 5a. Left Arm: Motor (10-second hold) - 0(No drift) 5b. Right Arm: Motor (10-second hold) - 2(Drift, some effort against gravity) 6a. Left Leg: Motor (5-second hold - always test supine) - 0(No drift) 6b. Right Leg: Motor (5-second hold - always test supine) - 3(No effort against gravity) 7. Limb Ataxia (finger/nose \\T\\ heel/khoury - test with eyes open) - 0(Absent) 8. Sensory Loss (pinprick arms/legs/face) - 2(Severe to total loss) 9. Best Language: Aphasia (description/naming/reading) - 2(Severe aphasia) 10. Dysarthria (speech clarity - read or repeat words) - 1(Mild to Moderate) 11. Extinction and Inattention (visual/tactile/auditory/spatial/personal) - 1(Present) Initials: NIH Stroke Scale - NIH Stroke Score Date: 11/30/2021 Time: 22:30 Total Score = 20 1a. Level of Consciousness (LOC) - 0(Alert) 1b. Level of Consciousness (LOC) (Month \\T\\ Age) - 2(Neither) 1c. LOC Commands (Open \\T\\ Closes Eyes/Compensation Coordinator) - 1(One) 2. Best Gaze (Lateral Gaze Paresis) - 2(Forced deviation) 3. Visual Field Loss - 0(No visual loss) 4. Facial Palsy - 3(Complete paralysis) 5a. Left Arm: Motor (10-second hold) - 0(No drift) 5b. Right Arm: Motor (10-second hold) - 2(Drift, some effort against gravity) 6a. Left Leg: Motor (5-second hold - always test supine) - 0(No drift) 6b. Right Leg: Motor (5-second hold - always test supine) - 3(No effort against gravity) 7. Limb Ataxia (finger/nose \\T\\ heel/khoury - test with eyes open) - 0(Absent) 8. Sensory Loss (pinprick arms/legs/face) - 2(Severe to total loss) 9. Best Language: Aphasia (description/naming/reading) - 2(Severe aphasia) 10. Dysarthria (speech clarity - read or repeat words) - 2(Severe) 11. Extinction and Inattention (visual/tactile/auditory/spatial/personal) - 1(Present) Initials: NIH Stroke Scale - NIH Stroke Score Date: 11/30/2021 Time: 22:45 Total Score = 16 1a. Level of Consciousness (LOC) - 0(Alert) 1b. Level of Consciousness (LOC) (Month \\T\\ Age) - 2(Neither) 1c. LOC Commands (Open \\T\\ Closes Eyes/Compensation Coordinator) - 0(Both) 2. Best Gaze (Lateral Gaze Paresis) - 1(Partial gaze palsy) 3. Visual Field Loss - 0(No visual loss) 4. Facial Palsy - 3(Complete paralysis) 5a. Left Arm: Motor (10-second hold) - 0(No drift) 5b. Right Arm: Motor (10-second hold) - 1(Drift) 6a. Left Leg: Motor (5-second hold - always test supine) - 0(No drift) 6b. Right Leg: Motor (5-second hold - always test supine) - 3(No effort against gravity) 7. Limb Ataxia (finger/nose \\T\\ heel/khoury - test with eyes open) - 0(Absent) 8. Sensory Loss (pinprick arms/legs/face) - 1(Mild to moderate loss) 9. Best Language: Aphasia (description/naming/reading) - 2(Severe aphasia) 10. Dysarthria (speech clarity - read or repeat words) - 2(Severe) 11. Extinction and Inattention (visual/tactile/auditory/spatial/personal) - 1(Present) Initials: NIH Stroke Scale - NIH Stroke Score Date: 11/30/2021 Time: 23:00 Total Score = 17 1a. Level of Consciousness (LOC) - 0(Alert) 1b. Level of Consciousness (LOC) (Month \\T\\ Age) - 2(Neither) 1c. LOC Commands (Open \\T\\ Closes Eyes/Compensation Coordinator) - 1(One) 2. Best Gaze (Lateral Gaze Paresis) - 2(Forced deviation) 3. Visual Field Loss - 0(No visual loss) 4. Facial Palsy - 1(Minor Paralysis) 5a. Left Arm: Motor (10-second hold) - 0(No drift) 5b. Right Arm: Motor (10-second hold) - 2(Drift, some effort against gravity) 6a. Left Leg: Motor (5-second hold - always test supine) - 0(No drift) 6b. Right Leg: Motor (5-second hold - always test supine) - 3(No effort against gravity) 7. Limb Ataxia (finger/nose \\T\\ heel/khoury - test with eyes open) - 0(Absent) 8. Sensory Loss (pinprick arms/legs/face) - 1(Mild to moderate loss) 9. Best Language: Aphasia (description/naming/reading) - 3(Mute, global aphasia) 10. Dysarthria (speech clarity - read or repeat words) - 1(Mild to Moderate) 11. Extinction and Inattention (visual/tactile/auditory/spatial/personal) - 1(Present) Initials: NIH Stroke Scale - NIH Stroke Score Date: 11/30/2021 Time: 23:15 Total Score = 17 1a. Level of Consciousness (LOC) - 0(Alert) 1b. Level of Consciousness (LOC) (Month \\T\\ Age) - 2(Neither) 1c. LOC Commands (Open \\T\\ Closes Eyes/Compensation Coordinator) - 0(Both) 2. Best Gaze (Lateral Gaze Paresis) - 1(Partial gaze palsy) 3. Visual Field Loss - 0(No visual loss) 4. Facial Palsy - 3(Complete paralysis) 5a. Left Arm: Motor (10-second hold) - 0(No drift) 5b. Right Arm: Motor (10-second hold) - 2(Drift, some effort against gravity) 6a. Left Leg: Motor (5-second hold - always test supine) - 1(Drift) 6b. Right Leg: Motor (5-second hold - always test supine) - 3(No effort against gravity) 7. Limb Ataxia (finger/nose \\T\\ heel/khoury - test with eyes open) - 0(Absent) 8. Sensory Loss (pinprick arms/legs/face) - 1(Mild to moderate loss) 9. Best Language: Aphasia (description/naming/reading) - 2(Severe aphasia) 10. Dysarthria (speech clarity - read or repeat words) - 1(Mild to Moderate) 11. Extinction and Inattention (visual/tactile/auditory/spatial/personal) - 1(Present) Initials: NIH Stroke Scale - NIH Stroke Score Date: 11/30/2021 Time: 23:30 Total Score = 16 1a. Level of Consciousness (LOC) - 0(Alert) 1b. Level of Consciousness (LOC) (Month \\T\\ Age) - 2(Neither) 1c. LOC Commands (Open \\T\\ Closes Eyes/Compensation Coordinator) - 1(One) 2. Best Gaze (Lateral Gaze Paresis) - 1(Partial gaze palsy) 3. Visual Field Loss - 0(No visual loss) 4. Facial Palsy - 2(Partial paralysis) 5a. Left Arm: Motor (10-second hold) - 0(No drift) 5b. Right Arm: Motor (10-second hold) - 2(Drift, some effort against gravity) 6a. Left Leg: Motor (5-second hold - always test supine) - 0(No drift) 6b. Right Leg: Motor (5-second hold - always test supine) - 3(No effort against gravity) 7. Limb Ataxia (finger/nose \\T\\ heel/khoury - test with eyes open) - 0(Absent) 8. Sensory Loss (pinprick arms/legs/face) - 1(Mild to moderate loss) 9. Best Language: Aphasia (description/naming/reading) - 2(Severe aphasia) 10. Dysarthria (speech clarity - read or repeat words) - 1(Mild to Moderate) 11. Extinction and Inattention (visual/tactile/auditory/spatial/personal) - 1(Present) Initials: NIH Stroke Scale - NIH Stroke Score Date: 12/01/2021 Time: 00:00 Total Score = 18 1a. Level of Consciousness (LOC) - 0(Alert) 1b. Level of Consciousness (LOC) (Month \\T\\ Age) - 2(Neither) 1c. LOC Commands (Open \\T\\ Closes Eyes/Compensation Coordinator) - 0(Both) 2. Best Gaze (Lateral Gaze Paresis) - 1(Partial gaze palsy) 3. Visual Field Loss - 1(Partial hemianopia) 4. Facial Palsy - 3(Complete paralysis) 5a. Left Arm: Motor (10-second hold) - 0(No drift) 5b. Right Arm: Motor (10-second hold) - 2(Drift, some effort against gravity) 6a. Left Leg: Motor (5-second hold - always test supine) - 0(No drift) 6b. Right Leg: Motor (5-second hold - always test supine) - 3(No effort against gravity) 7. Limb Ataxia (finger/nose \\T\\ heel/khoury - test with eyes open) - 0(Absent) 8. Sensory Loss (pinprick arms/legs/face) - 1(Mild to moderate loss) 9. Best Language: Aphasia (description/naming/reading) - 3(Mute, global aphasia) 10. Dysarthria (speech clarity - read or repeat words) - 1(Mild to Moderate) 11. Extinction and Inattention (visual/tactile/auditory/spatial/personal) - 1(Present) Initials: NIH Stroke Scale - NIH Stroke Score Date: 12/01/2021 Time: 00:30 Total Score = 15 1a. Level of Consciousness (LOC) - 0(Alert) 1b. Level of Consciousness (LOC) (Month \\T\\ Age) - 2(Neither) 1c. LOC Commands (Open \\T\\ Closes Eyes/Compensation Coordinator) - 0(Both) 2. Best Gaze (Lateral Gaze Paresis) - 1(Partial gaze palsy) 3. Visual Field Loss - 0(No visual loss) 4. Facial Palsy - 1(Minor Paralysis) 5a. Left Arm: Motor (10-second hold) - 0(No drift) 5b. Right Arm: Motor (10-second hold) - 2(Drift, some effort against gravity) 6a. Left Leg: Motor (5-second hold - always test supine) - 1(Drift) 6b. Right Leg: Motor (5-second hold - always test supine) - 3(No effort against gravity) 7. Limb Ataxia (finger/nose \\T\\ heel/khoury - test with eyes open) - 0(Absent) 8. Sensory Loss (pinprick arms/legs/face) - 1(Mild to moderate loss) 9. Best Language: Aphasia (description/naming/reading) - 2(Severe aphasia) 10. Dysarthria (speech clarity - read or repeat words) - 1(Mild to Moderate) 11. Extinction and Inattention (visual/tactile/auditory/spatial/personal) - 1(Present) Initials: NIH Stroke Scale - NIH Stroke Score Date: 12/01/2021 Time: 01:00 Total Score = 16 1a. Level of Consciousness (LOC) - 0(Alert) 1b. Level of Consciousness (LOC) (Month \\T\\ Age) - 2(Neither) 1c. LOC Commands (Open \\T\\ Closes Eyes/Compensation Coordinator) - 0(Both) 2. Best Gaze (Lateral Gaze Paresis) - 1(Partial gaze palsy) 3. Visual Field Loss - 1(Partial hemianopia) 4. Facial Palsy - 3(Complete paralysis) 5a. Left Arm: Motor (10-second hold) - 0(No drift) 5b. Right Arm: Motor (10-second hold) - 1(Drift) 6a. Left Leg: Motor (5-second hold - always test supine) - 0(No drift) 6b. Right Leg: Motor (5-second hold - always test supine) - 3(No effort against gravity) 7. Limb Ataxia (finger/nose \\T\\ heel/khoury - test with eyes open) - 0(Absent) 8. Sensory Loss (pinprick arms/legs/face) - 1(Mild to moderate loss) 9. Best Language: Aphasia (description/naming/reading) - 2(Severe aphasia) 10. Dysarthria (speech clarity - read or repeat words) - 1(Mild to Moderate) 11. Extinction and Inattention (visual/tactile/auditory/spatial/personal) - 1(Present) Initials: diana NIH Stroke Scale - NIH Stroke Score Date: 12/01/2021 Time: :30 Total Score = 16 1a. Level of Consciousness (LOC) - 0(Alert) 1b. Level of Consciousness (LOC) (Month \\T\\ Age) - 2(Neither) 1c. LOC Commands (Open \\T\\ Closes Eyes/Compensation Coordinator) - 0(Both) 2. Best Gaze (Lateral Gaze Paresis) - 1(Partial gaze palsy) 3. Visual Field Loss - 0(No visual loss) 4. Facial Palsy - 2(Partial paralysis) 5a. Left Arm: Motor (10-second hold) - 0(No drift) 5b. Right Arm: Motor (10-second hold) - 2(Drift, some effort against gravity) 6a. Left Leg: Motor (5-second hold - always test supine) - 0(No drift) 6b. Right Leg: Motor (5-second hold - always test supine) - 3(No effort against gravity) 7. Limb Ataxia (finger/nose \\T\\ heel/khoury - test with eyes open) - 1(Present in one limb) 8. Sensory Loss (pinprick arms/legs/face) - 1(Mild to moderate loss) 9. Best Language: Aphasia (description/naming/reading) - 2(Severe aphasia) 10. Dysarthria (speech clarity - read or repeat words) - 1(Mild to Moderate) 11. Extinction and Inattention (visual/tactile/auditory/spatial/personal) - 1(Present) Initials: Signatures: Dispatcher [employer] Wilber Puckett MD MD cha Attema, Lee, PRACTICE MANAGERS-C PRACTICE MANAGERS-Cla1 Latisha Yuan, RN RN Bessie Clark tw5 Coco Soriano, RN RN 5 Ana M Arshad, JACQUELINE PHILLIPS mk Ana M ortiz Corrections: (The following items were deleted from the chart) 22: 20:43 to [facility], [facility] fredrick fredrick 22:25 20:43 [facility] fredrick fredrick 22:25 20:43 Higher level of care fredrick fredrick 22:25 20:43 Serious fredrick fredrick 22:25 20:43 new fredrick fredrick 22:25 20:43 are unchanged fredrick fredrick 22:25 20:43 Cerebral infarction, unspecified fredrick fredrick 22:49 22:30 Laz Gill fredrick la1 12/01 00:33 11/30 22:30 fredrick cg
[2021-11-30] MEDS ORDERED: ALTEPLASE 100 ML IV ONE (20:49)
--- NOTE | 2021-11-30 21:02 | RAD REPORT ---
EXAM DESCRIPTION: Zack Single View11/30/2021 8:48 pm CLINICAL HISTORY: cough COMPARISON: none FINDINGS: Interstitial lung pattern is mildly prominent. I suspect most if not all of this is chron ic. The heart is mildly enlarged.
[2021-11-30 21:05] LABS: Albumin 2.4 g/dL (3.4-5.0)
[2021-11-30 21:06] LABS: Magnesium 1.9 mg/dL (1.8-2.4); Potassium 3.9 mmol/L (3.5-5.1)
[2021-11-30] MEDS ORDERED: LABETALOL 20 MG/4ML SYRINGE IV ONE (21:08)
[2021-11-30 21:22] LABS: Bilirubin Direct 0.2 mg/dL (0-0.2); Bilirubin Total 0.6 mg/dL (0.2-1.0); Protein, Total 5.8 g/dL (6.4-8.2); Troponin (Emerg Dept Use Only) 0.04 ng/mL (0.0-0.045)
[2021-11-30] MEDS ORDERED: ONDANSETRON 4 MG/2 ML VIAL ONE (22:40)
[2021-11-30] MEDS ORDERED: FOLIC ACID 5 MG/ML VIAL ONE (23:26)
[2021-11-30] MEDS ORDERED: NA CHLORIDE 0.9% 1,000 ML ONE (23:26)
--- NOTE | 2021-12-01 00:39 | P.HP ---
Certification for Inpatient Patient admitted to: Inpatient With expected LOS: >2 Midnights Patient will require the following post-hospital care: None Practitioner: I am a practitioner with admitting privileges, knowledge of patient current condition, hospital course, and medical plan of care. Services: Services provided to patient in accordance with Admission requirements found in Title 42 Section 412.3 of the Code of Federal Regulations <Elias Perkins - Last Filed: 12/01/21 00:33> Patient History Date of Service: 12/01/21 Primary Care Provider: Susanna Becerra Reason for admission: Right-sided weakness History of Present Illness: 85-year-old female with history of polio, previous TIA, hypertension presents emergency department for strokelike symptoms. Patient is currently residing with her daughter was seen in her recliner well at 1730, around 1845 daughter went to check on patient and noticed that her teeth have fallen out attempted to wake her up but she was unresponsive noticed that she had right- sided facial droop and her right upper and lower extremities were flaccid. Patient was brought to the emergency department found to be a candidate for tPA, tPA was given. Labs were significant for hemoglobin 11.4 medical 34.[address] head brain without contrast no acute findings CT angio head and neck show no evidence of significant stenosis and/or occlusion of the major intracranial arteries, minimal scattered decreased caliber of the vessels of the proximal intracranial portion of the internal carotid arteries bilaterally. origin of the right TIMERS INSPECTOR. Patient has had some improvement in her mental status currently is moving right upper extremity when gravity is limited, moving both lower extremities, patient is mostly aphasic but does mumble some at this time. Daughter reports usually she is alert and oriented, speaks clearly. Will admit to the ICU for further evaluation and management - Past Medical/Surgical History -: Hypertension -: TIA -: Polio -: Colon resection -: Hysterectomy -: Cholecystectomy Psychosocial/ Personal History: Patient is retired and lives at home, alone - Family History Mother -: Heart disease Brother -: Diabetes - Social History Smoking Status: Current every day smoker Counseled patient to stop smoking for: less than 10 minutes Alcohol use: No CD- Drugs: No Caffeine use: Yes Place of Residence: Home <Elias Perkins - Last Filed: 12/01/21 00:33> Date of Service: 12/01/21 <Jake Isaac - Last Filed: 12/05/21 08:08> Review of Systems is unable to be obtained <Elias Perkins - Last Filed: 12/01/21 00:33> Physical Examination - Physical Exam General: Confused, Other (Aphasia, follows some simple commands) HEENT: Atraumatic, Normocephalic Neck: Supple Respiratory: Clear to auscultation bilaterally, Normal air movement Cardiovascular: No edema, Normal S1 S2 Capillary refill: <2 Seconds Gastrointestinal: Normal bowel sounds, Soft and benign Musculoskeletal: No contractures, No erythema Integumentary: No rashes, No breakdown Neurological: Abnormal speech (Aphasia), Abnormal strength (Right and left lower extremity weakness right greater than left, right upper extremity weak strength 2 out of 5 right-sided facial droop) - Studies Laboratory Data (last 24 hrs) 11/30/21 20:23: PT 13.3 H, INR 1.15 11/30/21 20:23: WBC 8.40, Hgb 11.4 L, Hct 34.5 L, Plt Count 157 11/30/21 20:23: Sodium 143, Potassium 3.9, BUN 26 H, Creatinine 0.85, Glucose 109 H, Magnesium 1.9, Total Bilirubin 0.6, AST 29, ALT 18, Alkaline Phosphatase 93 <Elias Perkins - Last Filed: 12/01/21 00:33> Assessment and Plan - Plan Assessment: Right-sided weakness suspect ischemic CVA S/P tPA Hypertension Polio resulting in right lower extremity weakness Plan: Right-sided weakness suspect ischemic CVA S/P tPA: Neurology consulted, continue with neurochecks, MRI stroke protocol, echocardiogram, carotid Doppler, repeat CT head without contrast of 24 hours ordered. Physical/speech/occupational therapy consults ordered. Folic acid/atorvastatin ordered starting today, aspirin and Plavix deferred to the following day given the patient recently received tPA. Appreciate further input from neurology and ancillary staff. Patient likely will require inpatient rehab or fdc at discharge. Hypertension: We will allow for permissive hypertension today. Polio resulting in right lower extremity weakness: Stable. DVT PPX: SCDs for the first 24 hours after tPA, will need to initiate Lovenox after this. Code status: DNR Discharge Plan: [facility] Plan to discharge in: Greater than 2 days - Advance Directives Does patient have a Living Will: No Does patient have a Durable POA for Healthcare: Yes - Code Status/Comfort Care Code Status Assessed: Yes (Full code) Critical Care: No Time Spent Managing Pts Care (In Minutes): 55 <JenElias carlisle - Last Filed: 12/01/21 00:33> - Problems (Diagnosis) (1) CVA (cerebral vascular accident) Current Visit: Yes Status: Acute (2) Underweight Current Visit: Yes Status: Acute <Jake Isaac - Last Filed: 12/05/21 08:08> Date of Service: 12/01/21 Subjective Agree with HPI as mentioned above Review of Systems is unable to be obtained Physical Examination - Vital Signs Reviewed - Physical Exam General: Alert, In no apparent distress Respiratory: Diminished, Expiratory wheezes Cardiovascular: Regular rate/rhythm, Normal S1 S2, No murmurs Gastrointestinal: Normal bowel sounds, Soft and benign, Non-distended, No tenderness Musculoskeletal: No clubbing, No swelling, No tenderness Neurological: Sensation intact, Cranial nerves 3-12 intact Assessment & Plan - Problems (Diagnosis) (1) CVA (cerebral vascular accident) Current Visit: Yes Status: Acute (2) Underweight Current Visit: Yes Status: Acute - Plan Continue with plan of care as mentioned below: 1. MRI of the brain 2. Antiplatelet and statin therapy 3. Lipid profile 4. Physical therapy and speech therapy consultation 5. DVT prophylaxis 6. Neurochecks every 4 hours 7. Reassess stroke scale 8. GI and DVT prophylaxis Discharge Plan: [facility] Plan to discharge in: Greater than 2 days - Advance Directives Does patient have a Living Will: No Does patient have a Durable POA for Healthcare: No - Code Status/Comfort Care Code Status Assessed: Yes Code Status: Full Code Critical Care: No Time Spent Managing PTS Care (In Minutes): 35 <Jake Isaac - Last Filed: 12/05/21 08:08>
[2021-12-01] MEDS ORDERED: ONDANSETRON 4 MG/2 ML VIAL IV PRN (02:32)
[2021-12-01] MEDS: D5 0.45 NS 1,000 ML IV SCH ×2 (02:44→19:00)
[2021-12-01 03:37] VITALS: BMI 15.0
[2021-12-01 05:37] LABS: Absolute Lymphocytes (CBC) 1.1 K/uL (0.7-4.9); Hematocrit 30.4 % (36.0-45.0); Lymphocytes % 14.4 % (15.3-44.8); MPV 8.5 fL (7.6-11.3); RBC Red Blood Cell Count 3.45 M/uL (3.86-4.86)
[2021-12-01 06:07] LABS: Albumin 2.1 g/dL (3.4-5.0); Bilirubin Total 0.5 mg/dL (0.2-1.0); Protein, Total 5.3 g/dL (6.4-8.2); Thyroid Stimulating Hormone 1.81 uIU/mL (0.360-3.740); Troponin I 0.06 ng/mL (0.0-0.045)
[2021-12-01 06:08] LABS: Magnesium 1.9 mg/dL (1.8-2.4); Potassium 4.1 mmol/L (3.5-5.1)
[2021-12-01] MEDS: FOLIC ACID 1 MG TABLET PO SCH (07:47)
--- NOTE | 2021-12-01 08:53 | RAD REPORT ---
EXAM DESCRIPTION: USCarotid Artery Bilateral12/01/2021 6:44 am CLINICAL HISTORY: Right sided weakness COMPARISON: None FINDINGS: The velocity of the right internal carotid artery equals 50 cm/sec. The right ICA/CCA rati o 1.7 Images of the left carotid and vertebral arteries were not performed as the patient became agitated a nd wanted the exam to end Mild plaque is present within the right carotid arteries. The right vertebral artery demonstrates antegrade flow IMPRESSION: Mild plaque within the right carotid arteries without evidence of a hemodynamically sign ificant stenosis Left vertebral arteries were not evaluated NASCET criteria used. Mild 0-49% stenosis Moderate 50-69% stenosis Severe 70-99% stenosis
--- NOTE | 2021-12-01 11:38 | RAD REPORT ---
EXAM DESCRIPTION: Suzieck Angio12/01/2021 5:45 am CLINICAL HISTORY: 85 years, Female, PAIN COMPARISON: None. TECHNIQUE: Multiple transaxial tomograms from the aortic arch through the brain were performed after administration of large bolus of IV contrast for complete opacification of the carotid arteries and intracranial vessels. Subsequent 2-D and 3-D multiplanar reformats, volume rendering technique and maximum intensity projec tion images were generated and reviewed. Stenosis measurements were performed according to NASCET cri teria. This exam was performed according to our departmental dose-optimization protocol, which includes auto mated exposure control, adjustment of the mA and/or kV according to patient size and/or use of iterat alexandra reconstruction technique. FINDINGS: Ascending aorta: There is a normal branching pattern of the great vessels off the arch. There is diffuse atherosclerotic disease aortic arch optimal aspect of the great vessels with no defi nitive focal areas of significant stenosis. Neural thrombus is identified within the descending porti on aortic arch There are codominant vertebral arteries which demonstrate normal opacification. No g reat vessel origin stenosis is identified. Right carotid artery: Normal opacification is demonstrated within the right common carotid artery a nd at the carotid bifurcation. There is atheromatous plaque formation throughout the distal portion o f the right common carotid artery. Atheromatous plaque formation within the carotid bulb with no foca l areas of critical stenosis. Atheromatous plaque formation within the origin/proximal aspect of the right internal carotid artery with less than 40% stenosis. There is ectasia uncoiled midportion of th e right internal carotid artery with no focal areas of significant stenosis. Left carotid artery: Normal opacification is demonstrated within the left common carotid artery and at the carotid bifurcation. There is atheromatous plaque formation throughout the distal portion of the left common carotid artery. Atheromatous plaque formation within the carotid bulb with the less t mitchell 30% stenosis. Atheromatous plaque formation within the origin proximal aspect of the left interna l carotid artery with less than 30% stenosis. There is ectasia/uncoiled midportion of the left rn intern al carotid artery with no focal areas of significant stenosis. Intracranial circulation: Intracranial portions of the internal carotid arteries the cavernous sinus portions demonstrates diffuse peripheral atheromatous plaque formation with no evidence for significa nt stenosis. The anterior cerebral arteries, middle cerebral arteries and its branches demonstrate no rmal opacification. No evidence for aneurysm/or occlusion. There is minimal right knee appearance of the vessels proximal intracranial portion related to atherosclerotic disease, especially along the bi lateral A1 segment and minimally along the bilateral M1/M2 segments. There is origin of the rig ht FLIPPING MACHINE OPERATOR. There is normal venous drainage with no evidence for sinus vein thrombosis. Vertebrobasilar system: The posterior circulation demonstrate codominant bilateral vertebral arteries , there is minimal peripheral atheromatous plaque formation. There is no evidence for significant sherry nosis and/or evidence for significant dissection. There is origin of the right FLIPPING MACHINE OPERATOR vertebrobasi lar system and FLIPPING MACHINE OPERATOR demonstrate to be normal with no evidence for aneurysm and/or occlusion. Minimal n o significant scattered decreased caliber of the P1 and P2 segments bilaterally is most likely relate d to atherosclerotic disease. Grossly the brain parenchyma demonstrate brain atrophy with periventricular white matter changes. The re is normal [place]cal[place]-white matter differentiation. No midline shift. No evidence for abnormal parenchyma l enhancement. The skull base and intracranial structures demonstrate to be within normal limits. Lung apex: There is centrilobular emphysematous changes of the upper lobes. IMPRESSION: No evidence of significant stenosis and/or occlusion of the major intracranial arteries. Minimal scattered decreased caliber of the vessels of the proximal intracranial portion of the rn intern al carotid arteries bilaterally, especially along the bilateral A1 segment and minimally along the bi lateral M1-M2 segments, and P1-P2 segments most likely related to minimal atherosclerotic disease. origin of the right FLIPPING MACHINE OPERATOR. Centrilobular emphysematous changes of the upper lobes. Electronically signed by: Guerrero Alvarez MD 11/30/2021 11:52 PM HAND TACKER Due to temporary technical issues with the PACS/Fluency reporting system, reports are being signed by the in house radiologist without review as a courtesy to ensure prompt reporting. The interpreting r adiologist is fully responsible for the content of the report.
--- NOTE | 2021-12-01 11:47 | RAD REPORT ---
EXAM DESCRIPTION: CTHead angio12/01/2021 5:44 am CLINICAL HISTORY: 85 years, Female, PAIN COMPARISON: None. TECHNIQUE: Multiple transaxial tomograms from the aortic arch through the brain were performed after administration of large bolus of IV contrast for complete opacification of the carotid arteries and intracranial vessels. Subsequent 2-D and 3-D multiplanar reformats, volume rendering technique and maximum intensity projec tion images were generated and reviewed. Stenosis measurements were performed according to NASCET cri teria. This exam was performed according to our departmental dose-optimization protocol, which includes auto mated exposure control, adjustment of the mA and/or kV according to patient size and/or use of iterat alexandra reconstruction technique. FINDINGS: Ascending aorta: There is a normal branching pattern of the great vessels off the arch. There is diffuse atherosclerotic disease aortic arch optimal aspect of the great vessels with no defi nitive focal areas of significant stenosis. Neural thrombus is identified within the descending porti on aortic arch There are codominant vertebral arteries which demonstrate normal opacification. No g reat vessel origin stenosis is identified. Right carotid artery: Normal opacification is demonstrated within the right common carotid artery a nd at the carotid bifurcation. There is atheromatous plaque formation throughout the distal portion o f the right common carotid artery. Atheromatous plaque formation within the carotid bulb with no foca l areas of critical stenosis. Atheromatous plaque formation within the origin/proximal aspect of the right internal carotid artery with less than 40% stenosis. There is ectasia uncoiled midportion of th e right internal carotid artery with no focal areas of significant stenosis. Left carotid artery: Normal opacification is demonstrated within the left common carotid artery and at the carotid bifurcation. There is atheromatous plaque formation throughout the distal portion of the left common carotid artery. Atheromatous plaque formation within the carotid bulb with the less t mitchell 30% stenosis. Atheromatous plaque formation within the origin proximal aspect of the left interna l carotid artery with less than 30% stenosis. There is ectasia/uncoiled midportion of the left application support intern al carotid artery with no focal areas of significant stenosis. Intracranial circulation: Intracranial portions of the internal carotid arteries the cavernous sinus portions demonstrates diffuse peripheral atheromatous plaque formation with no evidence for significa nt stenosis. The anterior cerebral arteries, middle cerebral arteries and its branches demonstrate no rmal opacification. No evidence for aneurysm/or occlusion. There is minimal right knee appearance of the vessels proximal intracranial portion related to atherosclerotic disease, especially along the bi lateral A1 segment and minimally along the bilateral M1/M2 segments. There is origin of the rig ht MEDICAL RECORDS SUPERVISOR. There is normal venous drainage with no evidence for sinus vein thrombosis. Vertebrobasilar system: The posterior circulation demonstrate codominant bilateral vertebral arteries , there is minimal peripheral atheromatous plaque formation. There is no evidence for significant sherry nosis and/or evidence for significant dissection. There is origin of the right MEDICAL RECORDS SUPERVISOR vertebrobasi lar system and MEDICAL RECORDS SUPERVISOR demonstrate to be normal with no evidence for aneurysm and/or occlusion. Minimal n o significant scattered decreased caliber of the P1 and P2 segments bilaterally is most likely relate d to atherosclerotic disease. Grossly the brain parenchyma demonstrate brain atrophy with periventricular white matter changes. The re is normal alcala-white matter differentiation. No midline shift. No evidence for abnormal parenchyma l enhancement. The skull base and intracranial structures demonstrate to be within normal limits. Lung apex: There is centrilobular emphysematous changes of the upper lobes. IMPRESSION: No evidence of significant stenosis and/or occlusion of the major intracranial arteries. Minimal scattered decreased caliber of the vessels of the proximal intracranial portion of the application support intern al carotid arteries bilaterally, especially along the bilateral A1 segment and minimally along the bi lateral M1-M2 segments, and P1-P2 segments most likely related to minimal atherosclerotic disease. origin of the right MEDICAL RECORDS SUPERVISOR. Centrilobular emphysematous changes of the upper lobes. Electronically signed by: Guerrero Alvarez MD 11/30/2021 11:52 PM MINERAL ECONOMIST Due to temporary technical issues with the PACS/Fluency reporting system, reports are being signed by the in house radiologist without review as a courtesy to ensure prompt reporting. The interpreting r adiologist is fully responsible for the content of the report.
[2021-12-01] MEDS: METOPROLOL TAR 25 MG TAB PO SCH ×2 (14:00→20:27)
--- NOTE | 2021-12-01 14:08 | RAD REPORT ---
EXAM DESCRIPTION: MRI - Brain W/Wo Cont - 12/01/2021 2:01 pm CLINICAL HISTORY: right sided weaknes Headache, drowsiness, CVA symptomology COMPARISON: MRA Head Wo Cont dated 12/01/2021; Carotid Artery Bilateral dated 12/01/2021 TECHNIQUE: Multi-sequence, multiplanar MR imaging of the brain was performed with contrast. FINDINGS: There is a moderate sized area of abnormal diffusion-weighted signal in the posterior left temporal lobe involving the cortex and subcortical region measuring approximately 4.0 x 3.5 cm. This region also demonstrates somewhat heterogenous reduced ADC signal. Areas of hypointensity are seen w ithin the suspected CVA. Moderate brain atrophy pattern is present with moderate chronic microvascular ischemia noted. No midline shift. No extra-axial fluid collection or hydrocephalus. There is mild linear enhancement identified area of suspected infarct. IMPRESSION: Suspected 4 cm acute CVA left posterior temporal region. Areas of hypointensity/susceptibility within the infarcted brain parenchyma could indicate mild hemor rhagic conversion.
--- NOTE | 2021-12-01 14:09 | RAD REPORT ---
EXAM DESCRIPTION: MRI - MRA Head Wo Cont - 12/01/2021 1:47 pm CLINICAL HISTORY: right sided weakness CVA COMPARISON: Head angio dated 11/30/2021 FINDINGS: 3D noncontrast [id number] MR angiography of the [place] was performed. No aneurysm, flow-limiting stenosis or vascular malformation is seen. There is no large vessel occlus ion identified. Forward flow seen in codominant vertebral arteries. The visualized dural venous sinuses appear patent. IMPRESSION: No significant flow abnormality of the [place] is identified.
--- NOTE | 2021-12-01 14:15 | RAD REPORT ---
EXAM DESCRIPTION: MRI - MRA Neck W/Wo Cont - 12/01/2021 1:47 pm CLINICAL HISTORY: right sided weaknes Headache, CVA symptomology COMPARISON: Neck Angio dated 11/30/2021; Carotid Artery Bilateral dated 12/01/2021 FINDINGS: Contrast enhance 2D [id number] MR angiography of the neck vessels was performed. Quality of the study is limited due to significant venous contamination. Moderate atherosclerotic narrowing is seen in both proximal internal carotid arteries without a high- grade stenosis evident. Antegrade flow seen in the vertebral arteries. IMPRESSION: Relatively limited quality exam due to significant venous contamination. There is, howev er, no high-grade carotid stenosis suspected bilaterally.
--- NOTE | 2021-12-01 18:39 | P.PN ---
Subjective Date of Service: 12/01/21 Patient lethargic; patient is difficult to arouse. CT scan shows hemorrhagic conversion Review of Systems is unable to be obtained Physical Examination - Vital Signs Temperature: 97.7 F Blood Pressure: 103/86 Pulse: 98 Respirations: 20 Pulse Ox (%): 99 - Physical Exam General: Alert, In no apparent distress Respiratory: Diminished, Expiratory wheezes Cardiovascular: Regular rate/rhythm, Normal S1 S2, No murmurs Gastrointestinal: Normal bowel sounds, Soft and benign, Non-distended, No tenderness Musculoskeletal: No clubbing, No swelling, No tenderness Neurological: Sensation intact, Cranial nerves 3-12 intact - Studies Laboratory Data (last 24 hrs) 11/30/21 20:23: PT 13.3 H, INR 1.15 11/30/21 20:23: WBC 8.40, Hgb 11.4 L, Hct 34.5 L, Plt Count 157 11/30/21 20:23: Sodium 143, Potassium 3.9, BUN 26 H, Creatinine 0.85, Glucose 109 H, Magnesium 1.9, Total Bilirubin 0.6, AST 29, ALT 18, Alkaline Phosphatase 93 Medications List Reviewed: Yes Assessment & Plan - Problems (Diagnosis) (1) CVA (cerebral vascular accident) Current Visit: Yes Status: Acute (2) Underweight Current Visit: Yes Status: Acute - Plan 1. MRI of the brain 2. Antiplatelet and statin therapy 3. Lipid profile 4. Physical therapy and speech therapy consultation 5. DVT prophylaxis 6. Neurochecks every 4 hours 7. Reassess stroke scale 8. GI and DVT prophylaxis Discharge Plan: Group Home Plan to discharge in: Greater than 2 days - Advance Directives Does patient have a Living Will: No Does patient have a Durable POA for Healthcare: No - Code Status/Comfort Care Code Status Assessed: Yes Code Status: Full Code Critical Care: No Time Spent Managing PTS Care (In Minutes): 35
[2021-12-01] MEDS: ATORVASTATIN 20 MG TAB PO SCH (20:27)
--- NOTE | 2021-12-01 21:30 | RAD REPORT ---
EXAM DESCRIPTION: CT - Head Brain Wo Cont - 12/01/2021 9:16 pm CLINICAL HISTORY: R/O hemorrhagic conversion cva CVA COMPARISON: Head angio dated 11/30/2021; Ct Stroke Brain Wo Cont dated 11/30/2021; MRA Neck W/Wo Cont da maame 12/01/2021 TECHNIQUE: All CT scans are performed using dose optimization technique as appropriate and may inclu de automated exposure control or mA/KV adjustment according to patient size. FINDINGS: Subtle areas of increased density are seen in the left posterior frontal lobe at the site of CVA. This is most compatible with mild hemorrhagic conversion.No midline shift is seen. Moderate b rain atrophy and chronic microvascular ischemic changes are present. The paranasal sinuses and mastoids are clear. The calvarium is intact. IMPRESSION: Mild hemorrhagic conversion of left posterior frontal CVA. No midline shift evident.
[2021-12-02 04:08] LABS: Hematocrit 33.7 % (36.0-45.0); MPV 8.4 fL (7.6-11.3); RBC Red Blood Cell Count 3.81 M/uL (3.86-4.86)
[2021-12-02 04:09] LABS: Absolute Lymphocytes (CBC) 1.9 K/uL (0.7-4.9); Lymphocytes % 21.2 % (15.3-44.8)
[2021-12-02 04:27] LABS: Albumin 2.2 g/dL (3.4-5.0); Bilirubin Total 0.7 mg/dL (0.2-1.0); Magnesium 1.9 mg/dL (1.8-2.4); Potassium 4.1 mmol/L (3.5-5.1); Protein, Total 5.3 g/dL (6.4-8.2)
--- NOTE | 2021-12-02 07:26 | ECHO ---
HEIGHT: 4 ft 11 in WEIGHT: 74 lb 8 oz DATE OF STUDY: 12/01/[address]: Elias Perkins NP 2-DIMENSIONAL: YES M.MODE: YES DOPPLER: YES COLOR FLOW: YES TDS: YES PORTABLE: YES DEFINITY: NO BUBBLE STUDY: NO DIAGNOSIS: CEREBRAL VASCULAR ACCIDENT CARDIAC HISTORY: CATHERIZATION: SURGERY: PROSTHETIC VALVE: PACEMAKER: MEASUREMENTS (cm) DIASTOLIC (NORMALS) SYSTOLIC (NORMALS) IVSd 1.3 (0.6-1.2) LA Diam 4.1 (1.9-4.0) LVEF 60-65% LVIDd 3.1 (3.5-5.7) LVIDs 1.9 (2.0-3.5) %FS 40% LVPWd 1.3 (0.6-1.2) Ao Diam 2.7 (2.0-3.7) 2 DIMENSIONAL ASSESSMENT: RIGHT ATRIUM: LEFT ATRIUM: ENLARGED RIGHT VENTRICLE: LEFT VENTRICLE: LEFT VENTRICULAR HYPERTROPHY TRICUSPID VALVE: MITRAL VALVE: PULMONIC VALVE: AORTIC VALVE: PERICARDIAL EFFUSION: NONE AORTIC ROOT: NORMAL LEFT VENTRICULAR WALL MOTION: NORMAL DOPPLER/COLOR FLOW: SEE BELOW. COMMENTS: NORMAL LEFT VENTRICULAR EJECTION FRACTION >60% WITH NORMAL WALL MOTION. SEVERE LEFT VENTRICULAR HYPERTROPHY WITH APICAL INVOLVEMENT SUGGESTIVE OF APICAL HYPERTROPHIC CARDIOMYOPATHY. SEVERE RESTRICTIVE DIASTOLIC DYFUNCTION. SEVERE ATRIAL ENLARGEMENT. SEVERE PULMONARY HYPERTENSION WITH RIGHT VENTRICULAR SYSTOLIC PRESSURE OF > 80 mmHg. SEVERE TRICUSPID REGURGITATION. MODERATE MITRAL REGURGITATION. MILD AORTIC REGURGITATION. TECHNOLOGIST: Edwar CHIU
[2021-12-02] MEDS: D5 0.45 NS 1,000 ML IV SCH ×2 (07:55→21:23)
[2021-12-02] MEDS: METOPROLOL TAR 25 MG TAB PO SCH ×2 (07:56→21:22)
[2021-12-02] MEDS: FOLIC ACID 1 MG TABLET PO SCH (07:57)
[2021-12-02] MEDS ORDERED: CLOPIDOGREL 75 MG TABLET PO SCH (09:00)
[2021-12-02] MEDS ORDERED: ASPIRIN EC 81 MG TAB PO SCH (09:00)
[2021-12-02] MEDS ORDERED: AMLODIPINE 10 MG TAB PO ONE (12:25)
[2021-12-02] MEDS: ATORVASTATIN 20 MG TAB PO SCH (21:23)
--- NOTE | 2021-12-02 23:20 | CON ---
Consultation called because of large left hemispheric stroke with dense right hemiparesis and left gl obal aphasia. History Of Present Illness: Ms. West is an 85-year-old right-handed patient with polio, prior transient ischemic attacks, hypertension, who was brought to the [facility] by emergen cy services after she was discovered by her daughter to be unresponsive in fact dentures falling out and significant dense right face, arm, and leg weakness. She was last seen well at 05:30, and around 06:45 that is when the daughter noted neuro symptoms. She came to [facility] and was check ed into the emergency room at 08:13, and head CT scan did not show acute ischemic or hemorrhagic find ings and she was found to have an NIH score scale of around 21. There was an area of low density in the CT scan in the right parietal lobe consistent with old infarction; in addition, though the area o f density in the right caudate again appearing as an old infarction. She did receive tPA and was sen t to the ICU. Subsequent brain MRI identified a 4 cm acute stroke in the left posterior temporal reg ion. In addition, there were areas of hypointensity and susceptibility within the infarct suggestive of mild hemorrhagic conversion. Head CT scan repeated yesterday confirmed the presence of mild hemo rrhagic conversion and left posterior frontal ischemic stroke. Her magnetic resonance angiogram iden tified no significant abnormalities in the upper [place] and her neck MRA showed no high-grade car otid stenosis on either side. The patient also had carotid artery ultrasound studies that showed mil d plaque without evidence of hemodynamically significant stenosis in the carotids bilaterally. The p ossibility of transferring the patient to use in for higher level of care was discussed and the patie nt's family decided that they did not want that. Further workup did include an echocardiogram which showed normal left ventricular ejection fraction, but severe left ventricular hypertrophy with apical involvement suggestive of apical hypertrophy cardiomyopathy. There is a restrictive diastolic dysfu nction, severe atrial enlargement, severe pulmonary hypertension with right ventricular systolic pres sure greater than 80 mmHg. There was severe tricuspid regurgitation, moderate mitral regurgitation, and mild aortic regurgitation. Past Medical History: Hypertension, polio, transient ischemic attack. Surgical History: Colon resection, hysterectomy, cholecystectomy. Family History: Heart disease in mother, diabetes in mother. Social History: The patient was smoking cigarettes daily. No alcohol use. Review of Systems: Cannot be obtained. The patient has a significant aphasic stroke. Allergies: CODEINE, MORPHINE, VENLAFAXINE. Physical Examination: Vital Signs: Blood pressure 157/94, pulse 86, respiratory rate 20, temperature 99.1, oxygen saturati on 97%. Height 4 feet 11 inches, weight 74 pounds. General: Ms. West is in bed. She is in no significant distress. She does appear slightly older th an her stated age. HEENT: She is, otherwise, normocephalic and atraumatic. Sclerae anicteric. Oropharynx is moist and pink. Neck: Supple. Chest: Good air movement. Extremities: Showed no significant edema or cyanosis. Neurologic: She does track visually. She did not respond to questions verbally. She has a significa nt right-sided neglect and decrease of the right nasolabial fold. She was evaluated by Speech and de termined to have capacity to swallow a pureed diet, which she is on currently. Her other cranial ner ves showed no additional deficits. Motor: She has 2/5 strength distally in the right lower extremity with 0 noted proximally in right up per extremity, lower extremity and 0/5 proximally and distally on the left upper and lower extremity. She has 4/5 proximally and distally. Sensory: Difficult to determine, as the patient is not able to respond appropriately. She does have slightly increased tone and atrophy noted in the right upper extremity. Gait: Cannot be assessed at this point. Reflexes: Depressed symmetrically. Laboratory Studies: Complete blood count with differential shows white blood cell count 8.9, hemoglo bin 11.3, normal neutrophil count. INR 1.15. Chemistries essentially unremarkable. Chloride slight ly elevated to 111, glucose 79. Her calcium, magnesium, and liver function studies are unremarkable. TSH 1.8. COVID-19 test is negative. Assessment: Ms. 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 She has comorbid hypertension and dyslipidemia. She has signi ficant dysphagia. Plan: 1.She would likely require long-term care, given her significant stroke which involves aphasia, dysp hagia, and dense right hemiparesis. She will benefit from fpc for more prolonged course of recovery. At this point, she does have a mild hemorrhagic conversion, which may be followed by se sawant head CT scans and neuro checks every 30 minutes to 1 hour appropriate. 2.Hold aspirin and use sequential compression device for DVT prophylaxis. 3.Keep systolic blood pressure less than 140 over the next week. KEVIN/MODL Voice ID: [id number] Report ID: [id number]
[2021-12-03 06:02] LABS: Absolute Lymphocytes (CBC) 1.5 K/uL (0.7-4.9); Hematocrit 35.3 % (36.0-45.0); Lymphocytes % 14.7 % (15.3-44.8); MPV 8.5 fL (7.6-11.3); RBC Red Blood Cell Count 3.98 M/uL (3.86-4.86)
[2021-12-03 06:20] LABS: Albumin 2.3 g/dL (3.4-5.0); Magnesium 1.9 mg/dL (1.8-2.4); Potassium 3.5 mmol/L (3.5-5.1); Protein, Total 5.7 g/dL (6.4-8.2)
[2021-12-03] MEDS: METOPROLOL TAR 25 MG TAB PO SCH ×2 (08:46→20:03)
[2021-12-03] MEDS: D5 0.45 NS 1,000 ML IV SCH ×2 (08:54→20:05)
[2021-12-03] MEDS ORDERED: POTASSIUM 25 MEQ EFFERV TAB PO ONE (09:00)
[2021-12-03] MEDS: FOLIC ACID 1 MG TABLET PO SCH (09:00)
--- NOTE | 2021-12-03 09:40 | RAD REPORT ---
EXAM DESCRIPTION: CT - Head Brain Wo Cont - 12/03/2021 8:12 am CLINICAL HISTORY: Hemorrhagic conversion-reassess COMPARISON: Head Brain Wo Cont dated 12/01/2021 TECHNIQUE: Axial 5 mm thick images of the head were obtained without IV contrast. All CT scans are performed using dose optimization technique as appropriate and may include automated exposure control or mA/KV adjustment according to patient size. FINDINGS: The left posterior frontal CVA hemorrhagic conversion changes are again noted. There has b een no progression. No new mass effect or edema. No new infarction changes identified and no new mass effect. There is no shift of midline structures. Underlying atrophy and chronic ischemic changes are present. Ventriculomegaly has not changed. Mastoid air cells and visualized portions of the paranasal sinuses are clear. No acute bony findings. IMPRESSION: Stable CT head examination. No progression of the left posterior frontal lobe CVA hemorr hagic conversion.
[2021-12-03] MEDS: ATORVASTATIN 20 MG TAB PO SCH (20:04)
[2021-12-04 06:46] LABS: Absolute Lymphocytes (CBC) 1.3 K/uL (0.7-4.9); Hematocrit 37.6 % (36.0-45.0); Lymphocytes % 13.9 % (15.3-44.8); MPV 8.5 fL (7.6-11.3); RBC Red Blood Cell Count 4.29 M/uL (3.86-4.86)
[2021-12-04 07:05] LABS: Albumin 2.3 g/dL (3.4-5.0); Bilirubin Total 1.1 mg/dL (0.2-1.0); Magnesium 1.9 mg/dL (1.8-2.4); Protein, Total 5.9 g/dL (6.4-8.2)
--- NOTE | 2021-12-04 08:33 | RAD REPORT ---
EXAM DESCRIPTION: CT - Chest For Pe Angio - 12/04/2021 7:56 am CLINICAL HISTORY: Chest pain. PE COMPARISON: Neck Angio dated 11/30/2021 TECHNIQUE: CT angiogram of the pulmonary arteries was performed with MIP. All CT scans are performed using dose optimization technique as appropriate and may include automated exposure control or mA/KV adjustment according to patient size. FINDINGS: No evidence of pulmonary thromboembolism. Thoracic aorta is not well assessed due to bolus timing. Moderate atherosclerosis of the thoracic aor ta is present. Mild emphysema is present. Opacities in both posterior lung bases probably represent atelectasis. Small bilateral pleural effusions are evident No concerning bony finding. IMPRESSION: No evidence of pulmonary thromboembolism. Small bilateral pleural effusions.
[2021-12-04] MEDS: FOLIC ACID 1 MG TABLET PO SCH (09:00)
[2021-12-04] MEDS: METOPROLOL TAR 25 MG TAB PO SCH ×2 (09:00→21:00)
[2021-12-04] MEDS: D5 0.45 NS 1,000 ML IV SCH ×2 (10:27→23:35)
[2021-12-04] MEDS: ATORVASTATIN 20 MG TAB PO SCH (21:00)
[2021-12-05] MEDS: HYDRALAZINE HCL 20 MG/ML VIAL IV PRN ×2 (01:57→21:55)
[2021-12-05] MEDS ORDERED: MORPHINE 2 MG/ML SYR IV ONE (02:19)
[2021-12-05] MEDS ORDERED: HYDROMORPHONE HCL 0.5 MG/0.5 ML INJ IV ONE (02:23)
[2021-12-05 05:57] LABS: Absolute Lymphocytes (CBC) 0.5 K/uL (0.7-4.9); Hematocrit 36.7 % (36.0-45.0); Lymphocytes % 4.3 % (15.3-44.8); MPV 8.6 fL (7.6-11.3); RBC Red Blood Cell Count 4.17 M/uL (3.86-4.86)
[2021-12-05 06:48] LABS: Albumin 2.3 g/dL (3.4-5.0); Bilirubin Total 0.9 mg/dL (0.2-1.0); Magnesium 1.9 mg/dL (1.8-2.4); Potassium 3.8 mmol/L (3.5-5.1); Protein, Total 5.7 g/dL (6.4-8.2)
[2021-12-05] MEDS ORDERED: METOPROLOL TARTRATE 5 MG/5 ML INJ IV STA (07:53)
--- NOTE | 2021-12-05 08:10 | P.PN ---
Date of Service: 12/02/21 Subjective Patient continues to improve. CT scan did show hemorrhagic conversion. Spoke to transfer center but no bed available. Spoke to [facility] transfer center and they are arranging for bed. Family is unsure if they want any aggressive measures. Review of Systems is unable to be obtained Physical Examination - Vital Signs Reviewed - Physical Exam General: Awake and following commands Respiratory: Diminished, Expiratory wheezes Cardiovascular: Regular rate/rhythm, Normal S1 S2, No murmurs Gastrointestinal: Normal bowel sounds, Soft and benign, Non-distended, No tenderness Musculoskeletal: No clubbing, No swelling, No tenderness Neurological: Sensation intact, Cranial nerves 3-12 intact; right-sided deficits and aphasic Assessment & Plan - Problems (Diagnosis) (1) CVA (cerebral vascular accident) Current Visit: Yes Status: Acute (2) Underweight Current Visit: Yes Status: Acute - Plan Continue with plan of care as mentioned below: 1. MRI of the brain reveals mild hemorrhagic conversion. Continue to monitor and repeat CT scan if symptoms progress 2. Antiplatelet and statin therapy; will continue at this time 3. Arrange for possible transfer 4. Physical therapy and speech therapy consultation appreciated 5. DVT prophylaxis on hold for hemorrhagic conversion 6. Neurochecks every 4 hours
--- NOTE | 2021-12-05 08:11 | P.PN ---
Date of Service: 12/04/21 Subjective Patient appears to be a little upset. Otherwise no complaints voiced. Awaiting for placement Review of Systems is unable to be obtained Physical Examination - Vital Signs Reviewed - Physical Exam General: Awake and following commands Respiratory: Diminished, Expiratory wheezes Cardiovascular: Regular rate/rhythm, Normal S1 S2, No murmurs Gastrointestinal: Normal bowel sounds, Soft and benign, Non-distended, No tenderness Musculoskeletal: No clubbing, No swelling, No tenderness Neurological: Sensation intact, Cranial nerves 3-12 intact; right-sided deficits and aphasic Assessment & Plan - Problems (Diagnosis) (1) CVA (cerebral vascular accident) Current Visit: Yes Status: Acute (2) Underweight Current Visit: Yes Status: Acute - Plan Continue with plan of care as mentioned below: 1. MRI of the brain reveals mild hemorrhagic conversion. Continue to monitor and repeat CT scan if symptoms progress 2. Antiplatelet and statin therapy; will continue at this time 3. DNR and possible hospice if no improvement; arranging for placement at this time 4. Physical therapy and speech therapy consultation appreciated 5. DVT prophylaxis on hold for hemorrhagic conversion
--- NOTE | 2021-12-05 08:11 | P.PN ---
Date of Service: 12/05/21 Subjective Patient really not improving. Patient remains very lethargic. Review of Systems is unable to be obtained Physical Examination - Vital Signs Reviewed - Physical Exam General: Patient very lethargic. Difficult to arouse Respiratory: Diminished, Expiratory wheezes Cardiovascular: Regular rate/rhythm, Normal S1 S2, No murmurs Gastrointestinal: Normal bowel sounds, Soft and benign, Non-distended, No tenderness Musculoskeletal: No clubbing, No swelling, No tenderness Neurological: right-sided deficits and aphasic Assessment & Plan - Problems (Diagnosis) (1) CVA (cerebral vascular accident) Current Visit: Yes Status: Acute (2) Underweight Current Visit: Yes Status: Acute - Plan Continue with plan of care as mentioned below: 1. MRI of the brain reveals mild hemorrhagic conversion. Repeat CT scan reveals worsening hemorrhage 2. Hold anti-platelet therapy 3. DNR and possible hospice if no improvement; arranging for placement at this time 4. Physical therapy and speech therapy on hold as patient with no improvement 5. DVT prophylaxis on hold for hemorrhagic conversion
--- NOTE | 2021-12-05 08:11 | P.PN ---
Date of Service: 12/03/21 Subjective Patient is doing well with no new complaints. Her mentation is slightly improved. Family decided that they work on a proceed with DNR status. If symptoms do not improve then we will proceed with hospice. Otherwise, she will benefit from [facility] placement Review of Systems is unable to be obtained Physical Examination - Vital Signs Reviewed - Physical Exam General: Awake and following commands Respiratory: Diminished, Expiratory wheezes Cardiovascular: Regular rate/rhythm, Normal S1 S2, No murmurs Gastrointestinal: Normal bowel sounds, Soft and benign, Non-distended, No tenderness Musculoskeletal: No clubbing, No swelling, No tenderness Neurological: Sensation intact, Cranial nerves 3-12 intact; right-sided deficits and aphasic Assessment & Plan - Problems (Diagnosis) (1) CVA (cerebral vascular accident) Current Visit: Yes Status: Acute (2) Underweight Current Visit: Yes Status: Acute - Plan Continue with plan of care as mentioned below: 1. MRI of the brain reveals mild hemorrhagic conversion. Continue to monitor and repeat CT scan if symptoms progress 2. Antiplatelet and statin therapy; will continue at this time 3. DNR and possible hospice if no improvement 4. Physical therapy and speech therapy consultation appreciated 5. DVT prophylaxis on hold for hemorrhagic conversion 6. Neurochecks every 4 hours
[2021-12-05] MEDS: FOLIC ACID 1 MG TABLET PO SCH (08:17)
[2021-12-05] MEDS: METOPROLOL TAR 25 MG TAB PO SCH ×2 (08:17→21:00)
[2021-12-05 08:47] LABS: Anisocytosis 1+; Blood Morphology Comment NOTED (NOT SEEN); Burr Cells 1+; Platelet Estimate ADEQ; White Blood Cell Scan OK (OK)
--- NOTE | 2021-12-05 11:47 | RAD REPORT ---
EXAM DESCRIPTION: RAD - Barium Swallow Modified - 12/05/2021 11:25 am CLINICAL HISTORY: DYSPHAGIA COMPARISON: Chest For Pe Angio dated 12/04/2021 TECHNIQUE: The patient was given liquid, semi-solid and solid forms of barium. Lateral view fluorosc opic imaging was performed in conjunction with speech pathology service. FINDINGS: Limited examination due to position of the patient's shoulders. Grossly, no aspiration was identified. Please see speech therapy note for additional findings. Total fluoroscopy time: 1 minutes 16 seconds
--- NOTE | 2021-12-05 13:22 | RAD REPORT ---
EXAM DESCRIPTION: CT - Head Brain Wo Cont - 12/05/2021 1:11 pm CLINICAL HISTORY: cva COMPARISON: MRI December 01, [address] December 03, 2020 TECHNIQUE: Computed axial tomography of the head was obtained. IV contrast was not requested. All CT scans are performed using dose optimization technique as appropriate and may include automated exposure control or mA/KV adjustment according to patient size. FINDINGS: The size of the left cerebral infarction is unchanged. There has been a slight increase in the amount of hemorrhage. No significant mass effect. No other significant change IMPRESSION: Slight increase in the amount of hemorrhage in the left cerebral infarction. However, th e size of the infarct is unchanged. No significant mass effect
[2021-12-05] MEDS: D5 0.45 NS 1,000 ML IV SCH (13:26)
[2021-12-05] MEDS: METOPROLOL TARTRATE 5 MG/5 ML INJ IV PRN ×2 (15:13→23:18)
[2021-12-05] MEDS: ATORVASTATIN 20 MG TAB PO SCH (21:00)
[2021-12-06] MEDS: D5 0.45 NS 1,000 ML IV SCH ×2 (02:20→22:19)
[2021-12-06] MEDS: METOPROLOL TAR 25 MG TAB PO SCH ×2 (09:00→22:16)
[2021-12-06] MEDS: FOLIC ACID 1 MG TABLET PO SCH (09:00)
[2021-12-06] MEDS: ATORVASTATIN 20 MG TAB PO SCH (22:16)
[2021-12-07] MEDS: FOLIC ACID 1 MG TABLET PO SCH (10:28)
[2021-12-07] MEDS: D5 0.45 NS 1,000 ML IV SCH (10:29)
[2021-12-07] MEDS: METOPROLOL TAR 25 MG TAB PO SCH ×2 (10:29→21:00)
[2021-12-07] MEDS: ATORVASTATIN 20 MG TAB PO SCH (21:00)
--- NOTE | 2021-12-08 00:05 | P.PN ---
Date of Service: 12/06/21 Subjective Patient continues to improve with no new complaints. Clinical symptoms are worsening Review of Systems is unable to be obtained Physical Examination - Vital Signs Reviewed - Physical Exam General: Patient very lethargic. Difficult to arouse Respiratory: Diminished, Expiratory wheezes Cardiovascular: Regular rate/rhythm, Normal S1 S2, No murmurs Gastrointestinal: Normal bowel sounds, Soft and benign, Non-distended, No tenderness Musculoskeletal: No clubbing, No swelling, No tenderness Neurological: right-sided deficits and aphasic Assessment & Plan - Problems (Diagnosis) (1) CVA (cerebral vascular accident) Current Visit: Yes Status: Acute (2) Underweight Current Visit: Yes Status: Acute - Plan Continue with plan of care as mentioned below: 1. MRI of the brain reveals mild hemorrhagic conversion. Repeat CT scan reveals worsening hemorrhage; decision made for no aggressive measures 2. Hold anti-platelet therapy 3. DNR and possible hospice if no improvement; arranging for placement at this time 4. Physical therapy and speech therapy on hold as patient with no improvement 5. DVT prophylaxis on hold for hemorrhagic conversion
--- NOTE | 2021-12-08 00:09 | P.PN ---
Date of Service: 12/07/21 Subjective Patient very lethargic. Family wants to proceed with hospice care. Review of Systems is unable to be obtained Physical Examination - Vital Signs Reviewed - Physical Exam General: Patient very lethargic. Difficult to arouse Respiratory: Diminished, Expiratory wheezes Cardiovascular: Regular rate/rhythm, Normal S1 S2, No murmurs Gastrointestinal: Normal bowel sounds, Soft and benign, Non-distended, No tenderness Musculoskeletal: Minimal swelling in the upper extremities Neurological: right-sided deficits and aphasic Assessment & Plan - Problems (Diagnosis) (1) CVA (cerebral vascular accident) Current Visit: Yes Status: Acute (2) Underweight Current Visit: Yes Status: Acute - Plan Continue with plan of care as mentioned below: 1. MRI of the brain reveals mild hemorrhagic conversion. Repeat CT scan reveals worsening hemorrhage; family decided to proceed with hospice 2. Comfort measures 3. DNR and possible hospice 4. Dc physical therapy and speech therapy 5. DVT prophylaxis on hold for hemorrhagic conversion
[2021-12-08] MEDS: HYDRALAZINE HCL 20 MG/ML VIAL IV PRN (00:49)
[2021-12-08] MEDS: D5 0.45 NS 1,000 ML IV SCH (03:22)
--- NOTE | 2021-12-08 08:35 | P.DS ---
Admission Date: 12/01/21 Discharge Date: 12/08/21 Primary Care Provider: Susanna Becerra Disposition: HOSPICE-MEDICAL FACILITY Discharge Condition: CRITICAL Reason for Admission: Right-sided weakness Consultations: Neurology-Dr. Dickerson Procedures: COVID: negative Initial CT Head: COMPARISON: none TECHNIQUE: Computed axial tomography of the head was obtained. All CT scans are performed using dose optimization technique as appropriate and may include automated exposure control or mA/KV adjustment according to patient size.FINDINGS: An intracranial bleed is not seen . The ventricles are normal in caliber. No extra-axial fluid collection is noted. Low-density involving the right caudate has the appearance of an old lacunar infarction. . Small low-density area right parietal lobe also probably old infarction. Mild low-density within periventricular, deep and subcortical white matter likely ischemic changes secondary to small vessel disease Fluid within the sinuses/ mastoids is not seen. IMPRESSION: No acute intracranial abnormality is seen. CT Head w contrast: FINDINGS: Ascending aorta: There is a normal branching pattern of the great vessels off the arch. There is diffuse atherosclerotic disease aortic arch optimal aspect of the great vessels with no definitive focal areas of significant stenosis. Neural thrombus is identified within the descending portion aortic arch There are codominant vertebral arteries which demonstrate normal opacification. No great vessel origin stenosis is identified. Right carotid artery: Normal opacification is demonstrated within the right common carotid artery and at the carotid bifurcation. There is atheromatous plaque formation throughout the distal portion of the right common carotid artery. Atheromatous plaque formation within the carotid bulb with no focal areas of critical stenosis. Atheromatous plaque formation within the origin/proximal aspect of the right internal carotid artery with less than 40% stenosis. There is ectasia uncoiled midportion of the right internal carotid artery with no focal areas of significant stenosis. Left carotid artery: Normal opacification is demonstrated within the left common carotid artery and at the carotid bifurcation. There is atheromatous plaque formation throughout the distal portion of the left common carotid artery. Atheromatous plaque formation within the carotid bulb with the less than 30% stenosis. Atheromatous plaque formation within the origin proximal aspect of the left internal carotid artery with less than 30% stenosis. There is ectasia/uncoiled midportion of the left internal carotid artery with no focal areas of significant stenosis. Intracranial circulation: Intracranial portions of the internal carotid arteries the cavernous sinus portions demonstrates diffuse peripheral atheromatous plaque formation with no evidence for significant stenosis. The anterior cerebral arteries, middle cerebral arteries and its branches demonstrate normal opacification. No evidence for aneurysm/or occlusion. There is minimal right knee appearance of the vessels proximal intracranial portion related to atherosclerotic disease, especially along the bilateral A1 segment and minimally along the bilateral M1/M2 segments. There is origin of the right ASSIGNMENT OFFICER. There is normal venous drainage with no evidence for sinus vein thrombosis. Vertebrobasilar system: The posterior circulation demonstrate codominant bilateral vertebral arteries, there is minimal peripheral atheromatous plaque formation. There is no evidence for significant stenosis and/or evidence for significant dissection. There is origin of the right ASSIGNMENT OFFICER vertebrobasilar system and ASSIGNMENT OFFICER demonstrate to be normal with no evidence for aneurysm and/or occlusion. Minimal no significant scattered decreased caliber of the P1 and P2 segments bilaterally is most likely related to atherosclerotic disease. Grossly the brain parenchyma demonstrate brain atrophy with periventricular white matter changes. There is normal [place]cal[place]-white matter differentiation. No midline shift. No evidence for abnormal parenchymal enhancement. The skull base and intracranial structures demonstrate to be within normal limits. Lung apex: There is centrilobular emphysematous changes of the upper lobes. IMPRESSION: No evidence of significant stenosis and/or occlusion of the major intracranial arteries. Minimal scattered decreased caliber of the vessels of the proximal intracranial portion of the internal carotid arteries bilaterally, especially along the bilateral A1 segment and minimally along the bilateral M1-M2 segments, and P1-P2 segments most likely related to minimal atherosclerotic disease. origin of the right ASSIGNMENT OFFICER. Centrilobular emphysematous changes of the upper lobes. MRI Brain: FINDINGS: There is a moderate sized area of abnormal diffusion-weighted signal in the posterior left temporal lobe involving the cortex and subcortical region measuring approximately 4.0 x 3.5 cm. This region also demonstrates somewhat heterogenous reduced ADC signal. Areas of hypointensity are seen within the suspected CVA. Moderate brain atrophy pattern is present with moderate chronic microvascular ischemia noted. No midline shift. No extra-axial fluid collection or hydrocephalus. There is mild linear enhancement identified area of suspected infarct. IMPRESSION: Suspected 4 cm acute CVA left posterior temporal region. Areas of hypointensity/susceptibility within the infarcted brain parenchyma could indicate mild hemorrhagic conversion. MRA Brain: COMPARISON: Head angio dated 11/30/2021 FINDINGS: 3D noncontrast [id number] MR angiography of the [place] was performed. No aneurysm, flow-limiting stenosis or vascular malformation is seen. There is no large vessel occlusion identified. Forward flow seen in codominant vertebral arteries. The visualized dural venous sinuses appear patent. IMPRESSION: No significant flow abnormality of the [place] is identified. MRA Neck: COMPARISON: Neck Angio dated 11/30/2021; Carotid Artery Bilateral dated 12/01/2021 FINDINGS: Contrast enhance 2D [id number] MR angiography of the neck vessels was performed. Quality of the study is limited due to significant venous contamination. Moderate atherosclerotic narrowing is seen in both proximal internal carotid arteries without a high-grade stenosis evident. Antegrade flow seen in the vertebral arteries. IMPRESSION: Relatively limited quality exam due to significant venous contamination. There is, however, no high-grade carotid stenosis suspected bilaterally. Follow up CT scan: COMPARISON: Neck Angio dated 11/30/2021; Carotid Artery Bilateral dated 12/01/2021 FINDINGS: Contrast enhance 2D [id number] MR angiography of the neck vessels was performed. Quality of the study is limited due to significant venous contamination. Moderate atherosclerotic narrowing is seen in both proximal internal carotid arteries without a high-grade stenosis evident. Antegrade flow seen in the vertebral arteries. IMPRESSION: Relatively limited quality exam due to significant venous contamination. There is, however, no high-grade carotid stenosis suspected bilaterally. Follow up CT Head: COMPARISON: MRI December 01, [address] December 03, 2020 TECHNIQUE: Computed axial tomography of the head was obtained. IV contrast was not requested. All CT scans are performed using dose optimization technique as appropriate and may include automated exposure control or mA/KV adjustment according to patient size. FINDINGS: The size of the left cerebral infarction is unchanged. There has been a slight increase in the amount of hemorrhage. No significant mass effect. No other significant change IMPRESSION: Slight increase in the amount of hemorrhage in the left cerebral infarction. However, the size of the infarct is unchanged. No significant mass effect ECHO: MEASUREMENTS (cm) DIASTOLIC (NORMALS) SYSTOLIC (NORMALS) IVSd 1.3 (0.6-1.2) LA Diam 4.1 (1.9-4.0) LVEF 60-65% LVIDd 3.1 (3.5-5.7) LVIDs 1.9 (2.0-3.5) %FS 40% LVPWd 1.3 (0.6-1.2) Ao Diam 2.7 (2.0-3.7) 2 DIMENSIONAL ASSESSMENT: RIGHT ATRIUM: LEFT ATRIUM: ENLARGED RIGHT VENTRICLE: LEFT VENTRICLE: LEFT VENTRICULAR HYPERTROPHY TRICUSPID VALVE: MITRAL VALVE: PULMONIC VALVE: AORTIC VALVE: PERICARDIAL EFFUSION: NONE AORTIC ROOT: NORMAL LEFT VENTRICULAR WALL MOTION: NORMAL DOPPLER/COLOR FLOW: SEE BELOW. COMMENTS: NORMAL LEFT VENTRICULAR EJECTION FRACTION >60% WITH NORMAL WALL MOTION. SEVERE LEFT VENTRICULAR HYPERTROPHY WITH APICAL INVOLVEMENT SUGGESTIVE OF APICAL HYPERTROPHIC CARDIOMYOPATHY. SEVERE RESTRICTIVE DIASTOLIC DYFUNCTION. SEVERE ATRIAL ENLARGEMENT. SEVERE PULMONARY HYPERTENSION WITH RIGHT VENTRICULAR SYSTOLIC PRESSURE OF > 80 mmHg. SEVERE TRICUSPID REGURGITATION. MODERATE MITRAL REGURGITATION. MILD AORTIC REGURGITATION. Medical Problem List: Right sided paresis, expressive/receptive aphasia, dysphagia with right facial weakness secondary to acute CVA left posterior temporal region status post tPA with hemorrhagic conversion in the left cerebral infarction HTN Hyperlipidemia Echo showing apical hypertrophic cardiomyopathy, severe restrictive diastolic dysfunction, and severe pulmonary hypertension Severe tricuspid regurgitation/moderate mitral regurgitation Hx of Polio Brief History of Present Illness: 85-year-old female with history of polio, hypertension presented with right facial weakness, right-sided paresis and aphasia. Patient received tPA in the emergency room. Patient admitted for further evaluation and treatment. Hospital Course: Patient presented with right-sided paresis, expressive/receptive aphasia and dysphagia with right facial weakness secondary to acute CVA to the left posterior temporal region. Patient received tPA. Hemorrhagic conversion noted to the left cerebral infarction. Patient with underlying history of hypertension, hyperlipidemia and polio. Echocardiogram showed apical hypertrophic cardiomyopathy, severe restrictive diastolic dysfunction and severe pulmonary hypertension. Echo also identified severe tricuspid regurgitation and moderate mitral regurgitation. Her condition did not improve. Patient was seen and evaluated by neurology. Patient was to be transferred [facility] but family preferred the patient to remain in the hospital. Patient was evaluated by physical therapy, speech. As her condition continued to deteriorate advanced care planning we addressed. Patient remained DO NOT RESUSCITATE. Family has decided on inpatient hospice. Patient will be transferred to inpatient hospice. Continue comfort measures. Vital Signs/Physical Exam: Temp Pulse Resp BP Pulse Ox 97.5 F 78 24 H 169/87 H 99 12/08/21 08:00 12/08/21 08:00 12/08/21 08:00 12/08/21 08:00 12/08/21 08:00 General: Other (No significant response to pain.) Respiratory: Crackles/rales (To the bases bilateral), Other (Currently on 2 L per nasal cannula) Cardiovascular: Normal pulses Neurological: Other (Weakness noted throughout. Poor response to voice. Some response to pain.) Laboratory Data at Discharge: WBC 11.60 K/uL (4.3-10.9) H D 12/05/21 05:30 Hgb 12.0 g/dL (12.0-15.0) 12/05/21 05:30 Hct 36.7 % (36.0-45.0) 12/05/21 05:30 Plt Count 173 K/uL (152-406) 12/05/21 05:30 PT 13.3 SECONDS (9.5-12.5) H 11/30/21 20:23 INR 1.15 11/30/21 20:23 Sodium 136 mmol/L (136-145) 12/05/21 05:30 Potassium 3.8 mmol/L (3.5-5.1) 12/05/21 05:30 BUN 16 mg/dL (7-18) 12/05/21 05:30 Creatinine 0.69 mg/dL (0.55-1.3) 12/05/21 05:30 Glucose 113 mg/dL (74-106) H 12/05/21 05:30 Magnesium 1.9 mg/dL (1.8-2.4) 12/05/21 05:30 Total Bilirubin 0.9 mg/dL (0.2-1.0) 12/05/21 05:30 AST 36 U/L (15-37) 12/05/21 05:30 ALT 22 U/L (12-78) 12/05/21 05:30 Alkaline Phosphatase 97 U/L (45-117) 12/05/21 05:30 Troponin I 0.06 ng/mL (0.0-0.045) H 12/01/21 11:06 Home Medications: Alprazolam [Xanax] 1 tab PO BEDTIME PRN 12/01/21 Aspirin [Melvin Chewable Aspirin] 1 tab PO DAILY 12/01/21 Clopidogrel Bisulfate [Plavix] 75 mg PO DAILY 12/01/21 Furosemide [Lasix] 20 mg PO DAILY PRN 12/01/21 Hydroxychloroquine [Plaquenil*] 200 mg PO DAILY 12/01/21 Losartan Potassium 50 mg PO DAILY 12/01/21 Metoprolol Tartrate 25 mg PO DAILY 12/01/21 Simvastatin 20 mg PO BEDTIME 12/01/21 Physician Discharge Instructions: Family has decided on inpatient hospice. Inpatient hospice to further care for the patient. Continue with comfort measures. Further orders to come from inpatient hospice. Diet: pureed Activity: Bedrest Followup: EMILE BAPTISTE [Primary Care Provider] - Time spent managing pt's care (in minutes): 55
[2021-12-08] MEDS: METOPROLOL TAR 25 MG TAB PO SCH (10:07)
[2021-12-08] MEDS: FOLIC ACID 1 MG TABLET PO SCH (10:08)
[2021-12-08 14:56] VITALS: O2SAT 99
[2021-12-08 14:59] VITALS: BP 167/85; TEMP 98.1
== END 2021-12-08 12:24 | disposition hospice, inpatient (51) | DRG 61 ==
LOC: ER 20:02 → 3RD-ICU 12-01 00:59 → 2ND 12-02 18:00
PROVIDERS: ADMIT Hospitalist; ATTEND Hospitalist
DX: I63.9 Cerebral infarction, unspecified (principal); I61.4 Nontraumatic intracerebral hemorrhage in cerebellum; G81.91 Hemiplegia, unspecified affecting right dominant side; Z68.1 Body mass index [BMI] 19.9 or less, adult; I42.2 Other hypertrophic cardiomyopathy; T45.615A Adverse effect of thrombolytic drugs, initial encounter; R47.01 Aphasia; R13.10 Dysphagia, unspecified; R29.810 Facial weakness; R29.721 NIHSS score 21; Y92.238 Other place in hospital as the place of occurrence of the external cause; I10 Essential (primary) hypertension; R63.6 Underweight; I27.20 Pulmonary hypertension, unspecified; I07.1 Rheumatic tricuspid insufficiency; I51.9 Heart disease, unspecified; I34.0 Nonrheumatic mitral (valve) insufficiency; Z86.12 Personal history of poliomyelitis; Z66 Do not resuscitate; Z20.822 Contact with and (suspected) exposure to COVID-19
CPT/HCPCS: 36415; 70450; 70496; 70498; 70544; 70549; 70553; 71045; 71275; 74230; 80048; 80053; 80076; 82947; 83735; 83880; 84439; 84443; 84484; 85025; 85610; 92526; 92610; 92977; 93005; 93306; 93880; 96374; 96375; 97110; 97161; 97530; 99291; A9577; J0360; J1170; J2405; J2997; J7030; J7799; Q9967; U0003

== ENCOUNTER 2021-12-08 13:00 | Inpatient (IN) | payer OTHER ==
--- OUTSIDE RECORDS SUMMARY | 2021-12-08 13:26 | XMS REPORT | Continuity of Care Document ---
:1935 Author Organization [facility] t Address [address] [place] [address] Care Team Providers Name Role Phone FARIDA BETO Primary Care Physician Unavailable TEQUILA Attending Clinician Unavailable Vidya KAISER Attending Clinician Unavailable KERON Attending Clinician Unavailable MAY Attending Clinician Unavailable CECILLE Attending Clinician Unavailable FRANK Attending Clinician Unavailable [id number] Attending Clinician Unavailable Frank SIFUENTES Attending Clinician KAREEM Attending Clinician Unavailable [id number] Attending Clinician Unavailable BASSEM Attending Clinician Unavailable Vidya Kaiser MD Attending Clinician KOTA PACHECO Attending Clinician Unavailable HERMAN MENDOZA Attending Clinician Unavailable Merrill VALLES Attending Clinician Unavailable Herman Mendoza MD Attending Clinician Zhanna JERONIMO Attending Clinician Unavailable Nadia MCKOY Attending Clinician Unavailable ELLEN Attending Clinician Unavailable INDIRA Attending Clinician Unavailable ROBERTA Attending Clinician Unavailable HEATHER BRIGHT Attending Clinician Unavailable SHANIQUA YADAV Attending Clinician Unavailable SILVIA THOMAS Admitting Clinician Unavailable Payers Payer Name Policy Type Policy Number Effective Date Expiration Date [facility] 7 [id number] 2018 CLASSIC [id number] 00:00[id number] 2013 00:00:00 Problems Condition Condition Condition Status Onset Resolution Last Treating Co mments Source Name Details Category Date Date Treatment Clinician Date Abdominal Abdominal Disease Active 2020-11 Chuy arellanoy aneurysm aneurysm 1-10 Seybol d 00:00: 00 PAF PAF Disease Active Susanna (paroxysma (paroxysma 9-09 Se ybold l atrial l atrial 00:00: fibrillati fibrillati 00 on) on) PVD PVD Disease Active Susnana (periphera (periphera 9-09 Se ybold l vascular l vascular 00:00: disease) disease) 00 PVD PVD Disease Active Susanna (periphera (periphera 7-15 Se ybold l vascular l vascular 00:00: disease) disease) 00 Chronic Chronic Disease Active 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, disease, 00:00: stage 3a stage 3a 00 Hypertensi Hypertensi Disease Active 2019-11 Champ odell on, on, 2-14 Seybold essential essential 00:00: 00 Abnormal Abnormal Disease Active 2019-11 Chuyse y EKG EKG 0-12 Seybold 00:00: 00 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 4-08 Seybol d arteries arteries 00:00: of of 00 extremitie extremitie s s 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 00:00: 00 Atrial Atrial Disease Active Susanna flutter flutter 7-30 Seybold 00:00: 00 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 00:00: 00 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 00 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 Champ odell lar lar 2-12 Seybold emphysema emphysema 00:00: 00 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 Chuyse y thyroid thyroid 0-16 Seybold nodules nodules 00:00: 00 Primary Primary Disease Active 2016-11 Susanna hyperparat hyperparat 0-16 Se ybold hyroidism hyroidism 00:00: 00 Encounter Encounter Disease Active Chuy william for for 7-31 Seybold monitoring monitoring 00:00: statin statin 00 therapy therapy History of History of Disease Active Champ odell TIA TIA 4-03 Seybold (transient (transient 00:00: ischemic ischemic 00 attack) attack) TIA TIA Disease Active Susanna (transient (transient 4-03 Se ybold ischemic ischemic 00:00: attack) attack) 00 S/P S/P Disease Active Susanna parathyroi parathyroi 3-16 Se ybold dectomy dectomy 00:00: 00 Pulmonary Pulmonary Disease Active Chuy cavazos HTN HTN 1-01 Seybold 00:00: 00 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, breast, right right Malnutriti Malnutriti Disease Active Champ odell on on 3-21 Seybold 00:00: 00 Coronary Coronary Disease Active 2014-11 Chuyse y artery artery 0-28 Seybold disease disease 00:00: 00 Senile Senile Disease Active Susanna osteoporos osteoporos 9-21 Se ybold is is 00:00: 00 Pure Pure Disease Active 2013-11 Susanna hyperchole hyperchole 2-18 Se ybold sterolemia sterolemia 00:00: 00 H/O H/O Disease Active 2011-11 Susanna fracture fracture 2-26 Seybol d of hip of hip 00:00: 00 Benign Benign Disease Active Susanna hypertensi hypertensi 5-13 Se ybold ve renal ve renal 00:00: disease disease 00 Chronic Chronic Disease Active Susanna back pain back pain 4-19 Seyb old 00:00: 00 Sacroiliac Sacroiliac Disease Active Champ odell joint joint 4-19 Seybold pain, rt pain, rt 00:00: 00 Tobacco Tobacco Disease Active Susanna dependence dependence Se ybold Postmenopa Postmenopa Disease Active Champ odell usal HRT usal HRT Seybol d (hormone (hormone replacemen replacemen t therapy) t therapy) Allergies, Adverse Reactions, Alerts Allergy Allergy Status Severity Reaction(s) Onset Inactive Treating Comm ents Source Name Type Date Date Clinician No Known DA Active [facility] 03-19 [place] [facility] 00[facility] 00 are [facility] No Known DA Active [facility] Allergie 03-19 [place] [facility] 00:[facility]: [facility] 00 are [facility] ADHESIVE Allergy Active 2017-11 [facility] TAPE 12-15 00:00: 00 Codeine Propensi Active Nausea and 2014-11 Chuy sey ty to Vomiting Seybold adverse 00:00: reaction 00 s CODEINE Allergy Active Itching 2014-11 [facility] 0 00:00: 00 ADHESIVE Allergy Active Other [facility] 12-03 00:00: 00 IODINE Allergy Active N\T\V [facility] AND 12-03 IODIDE 00:00: CONTAINI 00 NG PRODUCTS VENLAFAX Allergy Active Other [facility] INE 12-03 ANALOGUE 00:00: S 00 Venlafax Propensi Active Nausea Only Shaking Susanna ine ty to 08-21 Also Seybold adverse 00:00: reaction 00 s to drug Adhesive Propensi Active Itching DO NOT Kelse y ty to 07-07 USE CLOTH Seybold adverse 00:00: TAPE reaction 00 s to substanc e Iodinate Propensi Active Myalgia No Kelse y d ty to 04-28 problems Seybold Contrast adverse 00:00: with reaction 00 iodine s to contrast substanc on e 07/07/21/c tNo problems with iodine contrast on 06/05/2021 /ct Morphine Propensi Active Nausea and Ke lsey ty to Vomiting 07-30 Seybold adverse 00:00: reaction 00 s Social History Social Habit Start Date Stop Date Quantity Comments Source Exposure to Not sure Susanna booker SARS-CoV-2 (event) Alcohol intake 2021-11-11 2021-11-11 Current Susanna nielson 00:00:00 00:00:00 non-drinker of alcohol (finding) Cigarettes smoked 2019-05-23 2019-05-23 Susanna Becerra current (pack per 00:00:00 00:00:00 day) - Reported Cigarette 2019-05-23 2019-05-23 Susanna Becerra pack-years 00:00:00 00:00:00 Tobacco use and 2019-05-23 2019-05-23 Former smokeless Chuy cavazos Seybakira exposure 00:00:00 00:00:00 tobacco user History of tobacco 2014-12-03 User of smokeless Susanna Becerra use 00:00:00 tobacco Sex [birth year] F Susanna olivas 00:00:00 00:00:00 Smoking Status Start Date Stop Date Source Ex-smoker 2019-05-23 00:00:00 2019-05-23 00:00:00 Susannadirk clarkboalexy Medications Ordered Filled Start Stop Current Ordering Indication Dosage Frequency Signature Comments Components Source Medication Medication Date Date Medication? Clinician (SIG) Name Name Alprazolam 2020-11 Yes .25mg QD Take 1 Toya ey 0.25 MG 2-21 tablet Seybold oral Tablet 00:00: (0.25 mg 00 total) by mouth nightly as needed for sleep or anxiety Metoprolol 2020-11- Yes TAKE 1 Toya ey Tartrate 25 2-19 03-20 TABLET(25 Se ybold MG oral 00:00: 04:59 MG) BY Tablet 00 :00 MOUTH DAILY Multiple 2020-11 Yes Take by Susanna Vitamins-Mi 2-09 mouth Seybold nerals 14:59: (CENTRUM 57 OR) traMADol 2020-11 Yes Take by Susanna HCl 5 MG/ML 2-09 mouth as Seyb old oral 14:59: needed Solution 57 Multiple 2020-11 Yes Take by Susanna Vitamins-Mi 1-18 mouth Seybold nerals 15:38: (CENTRUM 04 OR) Lactulose 2020-11 Yes 20g Take 30 mL Ke lsey 10 GM/15ML 1-10 (20 g Seybold oral 00:00: total) by Solution 00 mouth 3 times daily Cilostazol 2020-11 Yes 50mg Take 1 Kelse y 50 MG oral 1-10 tablet (50 Sey bold Tablet 00:00: mg total) 00 by mouth 2 times daily Lactulose 2020-11 Yes 20g Take 30 mL Ke lsey 10 GM/15ML 1-10 (20 g Seybold oral 00:00: total) by Solution 00 mouth 3 times daily Cilostazol 2020-11 Yes 50mg Take 1 Kelse y 50 MG oral 1-10 tablet (50 Sey bold Tablet 00:00: mg total) 00 by mouth 2 times daily Lactulose 2020-11 Yes 20g Take 30 mL Ke lsey 10 GM/15ML 1-10 (20 g Seybold oral 00:00: total) by Solution 00 mouth 3 times daily Metoprolol 2020-11- Yes 25mg Take 1 Toya ey Tartrate 25 -10 12-11 tablet (25 S eybold MG oral 00:00: 05:59 mg total) Tablet 00 :00 by mouth daily Metoprolol 2020-11- Yes 25mg Take 1 Toya ey Tartrate 25 -10 12-11 tablet (25 S eybold MG oral 00:00: 05:59 mg total) Tablet 00 :00 by mouth daily Metoprolol 2020-11- No 25mg Take 1 Toya ey Tartrate 25 - 11-10 tablet (25 S eybold MG oral 00:00: 00:00 mg total) Tablet 00 :00 by mouth 2 times daily Hydroxychlo 2020-11 Yes [id number] 200mg Take 1 Susanna roquine 1-02 tablet Seybold Sulfate 200 00:00: (200 mg MG oral 00 total) by Tablet mouth 2 times daily predniSONE 2020-11 Yes 5mg Take 1 Kelse y 5 MG oral 1-02 tablet (5 Seybo ld Tablet 00:00: mg total) 00 by mouth 2 times daily Hydroxychlo 2020-11 Yes [id number] 200mg Take 1 Susanna roquine 1-02 tablet Seybold Sulfate 200 00:00: (200 mg MG oral 00 total) by Tablet mouth 2 times daily predniSONE 2020-11 Yes 5mg Take 1 Kelse y 5 MG oral 1-02 tablet (5 Seybo ld Tablet 00:00: mg total) 00 by mouth 2 times daily Hydroxychlo 2020-11 Yes [id number] 200mg Take 1 Susanna roquine 1-02 tablet Seybold Sulfate 200 00:00: (200 mg MG oral 00 total) by Tablet mouth 2 times daily predniSONE 2020-11 Yes 5mg Take 1 Kelse y 5 MG oral 1-02 tablet (5 Seybo ld Tablet 00:00: mg total) 00 by mouth 2 times daily Hydroxychlo 2020-11 Yes [id number] 200mg Take 1 Susanna roquine 1-02 tablet Seybold Sulfate 200 00:00: (200 mg MG oral 00 total) by Tablet mouth 2 times daily Multiple Yes Take by Susanna Vitamins-Mi 9-23 mouth Seybold nerals 09:47: (CENTRUM 33 OR) Multiple Yes Take by Susanna Vitamins-Mi 9-23 mouth Seybold nerals 09:47: (CENTRUM 33 OR) Multiple Yes Take by Susanna Vitamins-Mi 9-23 mouth Seybold nerals 09:47: (CENTRUM 33 OR) Atenolol Yes [id number] 25mg Take 1 Susanna MG oral 9-09 tablet (25 Seybol d Tablet 00:00: mg total) 00 by mouth daily Atenolol Yes [id number] 25mg Take 1 Susanna MG oral 9-09 tablet (25 Seybol d Tablet 00:00: mg total) 00 by mouth daily Atenolol No [id number] 25mg Take 1 Susanna MG oral 9-09 11-10 tablet (25 Seybo ld Tablet 00:00: 00:00 mg total) 00 :00 by mouth daily Clopidogrel Yes 75mg Take 1 Toya ey Bisulfate 7-15 tablet (75 Seyb old 75 MG oral 00:00: mg total) Tablet 00 by mouth daily Simvastatin Yes TAKE 1 Toya ey 20 MG oral 7-15 TABLET(20 Seyb old Tablet 00:00: MG) BY 00 MOUTH EVERY NIGHT AT BEDTIME Losartan Yes 50mg Take 1 Susanna Potassium 7-15 tablet (50 Seyb old 50 MG oral 00:00: mg total) Tablet 00 by mouth daily Simvastatin Yes TAKE 1 Toya ey 20 MG oral 7-15 TABLET(20 Seyb old Tablet 00:00: MG) BY 00 MOUTH EVERY NIGHT AT BEDTIME Losartan Yes 50mg Take 1 Susanna Potassium 7-15 tablet (50 Seyb old 50 MG oral 00:00: mg total) Tablet 00 by mouth daily Simvastatin Yes TAKE 1 Toya ey 20 MG oral 7-15 TABLET(20 Seyb old Tablet 00:00: MG) BY 00 MOUTH EVERY NIGHT AT BEDTIME Losartan Yes 50mg Take 1 Susanna Potassium 7-15 tablet (50 Seyb old 50 MG oral 00:00: mg total) Tablet 00 by mouth daily Losartan Yes 50mg Take 1 Susanna Potassium 7-15 tablet (50 Seyb old 50 MG oral 00:00: mg total) Tablet 00 by mouth daily Clopidogrel Yes 75mg Take 1 Toya ey Bisulfate 7-15 tablet (75 Seyb old 75 MG oral 00:00: mg total) Tablet 00 by mouth daily Simvastatin Yes TAKE 1 Toya ey 20 MG oral 7-15 TABLET(20 Seyb old Tablet 00:00: MG) BY 00 MOUTH EVERY NIGHT AT BEDTIME Losartan Yes 50mg Take 1 Susanna Potassium 7-15 tablet (50 Seyb old 50 MG oral 00:00: mg total) Tablet 00 by mouth daily Clopidogrel 2020-0 2021- No 75mg Take 1 Chuy sey Bisulfate 7-15 11-10 tablet (75 Sey bold 75 MG oral 00:00: 00:00 mg total) Tablet 00 :00 by mouth daily predniSONE Yes TAKE 1 Kelse y 5 MG oral 7-01 TABLET(5 Seybol d Tablet 00:00: MG) BY 00 MOUTH DAILY NEEDED predniSONE 2020-2020- No TAKE 1 Toya ey 5 MG oral 7-01 11-02 TABLET(5 Seybo ld Tablet 00:00: 00:00 MG) BY 00 :00 MOUTH DAILY NEEDED Furosemide Yes TAKE 1 Kelse y 20 MG oral 6-14 TABLET BY Seyb old Tablet 00:00: MOUTH 00 DAILY EXCEPT ON WEDNESDAY, WEDNESDAY AND WEDNESDAY TAKE 2 TABLET DIRECTED Furosemide Yes TAKE 1 Kelse y 20 MG oral 6-14 TABLET BY Seyb old Tablet 00:00: MOUTH 00 DAILY EXCEPT ON WEDNESDAY, WEDNESDAY AND WEDNESDAY TAKE 2 TABLET DIRECTED Furosemide Yes TAKE 1 Kelse y 20 MG oral 6-14 TABLET BY Seyb old Tablet 00:00: MOUTH 00 DAILY EXCEPT ON WEDNESDAY, WEDNESDAY AND WEDNESDAY TAKE 2 TABLET DIRECTED Furosemide Yes TAKE 1 Kelse y 20 MG oral 6-14 TABLET BY Seyb old Tablet 00:00: MOUTH 00 DAILY EXCEPT ON WEDNESDAY, WEDNESDAY AND WEDNESDAY TAKE 2 TABLET DIRECTED Furosemide Yes TAKE 1 Kelse y 20 MG oral 6-14 TABLET BY Seyb old Tablet 00:00: MOUTH 00 DAILY EXCEPT ON WEDNESDAY, WEDNESDAY AND WEDNESDAY TAKE 2 TABLET DIRECTED Hydroxychlo 2019-0 Yes [id number] TAKE 1 Susanna roquine 9-21 TABLET(200 Seybol d Sulfate 200 00:00: MG) BY MG oral Tab 00 MOUTH TWICE DAILY Hydroxychlo 2019-0 2020- No [id number] TAKE 1 Susanna roquine 9-21 11-02 TABLET(200 Seybo ld Sulfate 200 00:00: 00:00 MG) BY MG oral Tab 00 :00 MOUTH TWICE DAILY ALBUTEROL 2019-0 Yes INHALE 2 Toya ey HFA 108 (90 4-15 PUFFS INTO Se ybold Base) 00:00: THE LUNGS MCG/ACT IN 00 EVERY 6 AERS HOURS NEEDED ALBUTEROL 2019-0 Yes INHALE 2 Toya ey HFA 108 (90 4-15 PUFFS INTO Se ybold Base) 00:00: THE LUNGS MCG/ACT IN 00 EVERY 6 AERS HOURS NEEDED ALBUTEROL 2019-0 Yes INHALE 2 Toya ey HFA 108 (90 4-15 PUFFS INTO Se ybold Base) 00:00: THE LUNGS MCG/ACT IN 00 EVERY 6 AERS HOURS NEEDED ALBUTEROL 2019-0 Yes INHALE 2 Toya ey HFA 108 (90 4-15 PUFFS INTO Se ybold Base) 00:00: THE LUNGS MCG/ACT IN 00 EVERY 6 AERS HOURS NEEDED ALBUTEROL 2019-0 Yes INHALE 2 Toya ey HFA 108 (90 4-15 PUFFS INTO Se ybold Base) 00:00: THE LUNGS MCG/ACT IN 00 EVERY 6 AERS HOURS NEEDED Ipratropium 2019-0 Yes 2{spray Use 2 Ke lsey [place] 7-18 } sprays in Seybold 0.03 % 00:00: each nasal 00 nostril Solution every 12 hours Ipratropium 2019-0 Yes 2{spray Use 2 Ke lsey [place] 7-18 } sprays in Seybold 0.03 % 00:00: each nasal 00 nostril Solution every 12 hours Ipratropium 2019-0 Yes 2{spray Use 2 Ke lsey [place] 7-18 } sprays in Seybold 0.03 % 00:00: each nasal 00 nostril Solution every 12 hours Ipratropium 2018- Yes 2{spray Use 2 Ke lsey [place] 7-18 } sprays in Seybold 0.03 % 00:00: each nasal 00 nostril Solution every 12 hours Lactulose Yes TAKE 30 ML Ke lsey Encephalopa 7-02 BY MOUTH Seyb old thy 00:00: EVERY (GENERLAC) 00 NIGHT AT 10 GM/15ML BEDTIME oral Solution Lactulose Yes TAKE 30 ML Ke lsey Encephalopa 7-02 BY MOUTH Seyb old thy 00:00: EVERY (GENERLAC) 00 NIGHT AT 10 GM/15ML BEDTIME oral Solution Lactulose Yes TAKE 30 ML Ke lsey Encephalopa 7-02 BY MOUTH Seyb old thy 00:00: EVERY (GENERLAC) 00 NIGHT AT 10 GM/15ML BEDTIME oral Solution Lactulose Yes TAKE 30 ML Ke lsey Encephalopa 7-02 BY MOUTH Seyb old thy 00:00: EVERY (GENERLAC) 00 NIGHT AT 10 GM/15ML BEDTIME oral Solution Lactulose Yes TAKE 30 ML Ke lsey Encephalopa 7-02 BY MOUTH Seyb old thy 00:00: EVERY (GENERLAC) 00 NIGHT AT 10 GM/15ML BEDTIME oral Solution Albuterol Yes [id number] 2.5mg Q4H Take 2.5 Susanna (PROVENTIL) 4-08 mg by Seybold (2.5 00:00: nebulizati MG/3ML) 00 on every 4 0.083% hours as inhalation needed for Nebu Soln wheezing Albuterol Yes [id number] 2.5mg Q4H Take 2.5 Susanna (PROVENTIL) 4-08 mg by Seybold (2.5 00:00: nebulizati MG/3ML) 00 on every 4 0.083% hours as inhalation needed for Nebu Soln wheezing Albuterol Yes [id number] 2.5mg Q4H Take 2.5 Susanna (PROVENTIL) 4-08 mg by Seybold (2.5 00:00: nebulizati MG/3ML) 00 on every 4 0.083% hours as inhalation needed for Nebu Soln wheezing Albuterol Yes [id number] 2.5mg Q4H Take 2.5 Susanna (PROVENTIL) 4-08 mg by Seybold (2.5 00:00: nebulizati MG/3ML) 00 on every 4 0.083% hours as inhalation needed for Nebu Soln wheezing Albuterol Yes [id number] 2.5mg Q4H Take 2.5 Susanna (PROVENTIL) 4-08 mg by Seybold (2.5 00:00: nebulizati MG/3ML) 00 on every 4 0.083% hours as inhalation needed for Nebu Soln wheezing Aspirin EC Yes 81mg Take 1 Kelse y 81 MG oral 2-09 tablet by Seyb old Tablet 00:00: mouth Delayed 00 daily Response Aspirin EC Yes 81mg Take 1 Kelse y 81 MG oral 2-09 tablet by Seyb old Tablet 00:00: mouth Delayed 00 daily Response Aspirin EC Yes 81mg Take 1 Kelse y 81 MG oral 2-09 tablet by Seyb old Tablet 00:00: mouth Delayed 00 daily Response Aspirin EC Yes 81mg Take 1 Kelse y 81 MG oral 2-09 tablet by Seyb old Tablet 00:00: mouth Delayed 00 daily Response Aspirin EC Yes 81mg Take 1 Kelse y 81 MG oral 2-09 tablet by Seyb old Tablet 00:00: mouth Delayed 00 daily Response Immunizations Ordered Immunization Filled Immunization Date Status Commen ts Source Name Name Shingles SQ (Zostavax) 2019-04-24 Completed Ke lsey Seybold 00:00:00 Shingles SQ (Zostavax) 2019-04-24 Completed Ke lsey Seybold 00:00:00 Shingles SQ (Zostavax) 2019-04-24 Completed Ke lsey Seybold 00:00:00 Shingles SQ (Zostavax) 2019-04-24 Completed Ke lsey Seybold 00:00:00 Shingles SQ (Zostavax) 2019-04-24 Completed Ke lsey Seybold 00:00:00 Shingles IM (Shingrix) 2019-04-18 Completed Ke lsey Seybold 00:00:00 Shingles IM (Shingrix) 2019-04-18 Completed Ke lsey Seybold 00:00:00 Shingles IM (Shingrix) 2019-04-18 Completed Ke lsey Seybold 00:00:00 Shingles IM (Shingrix) 2019-04-18 Completed Ke lsey Seybold 00:00:00 Shingles IM (Shingrix) 2019-04-18 Completed Ke lsey Seybold 00:00:00 Shingles IM (Shingrix) 2019-04-17 Completed Ke lsey Seybold 00:00:00 Shingles IM (Shingrix) 2019-04-17 Completed Ke lsey Seybold 00:00:00 Shingles IM (Shingrix) 2019-04-17 Completed Ke lsey Seybold 00:00:00 Shingles IM (Shingrix) 2019-04-17 Completed Ke lsey Seybold 00:00:00 Shingles IM (Shingrix) 2019-04-17 Completed Ke lsey Seybold 00:00:00 Influenza Virus 2017-12-20 Completed Susanna Se ybold Vaccine, High Dose, 00:00:00 Age 65 And Up Influenza Virus 2017-12-20 Completed Susanna Se ybold Vaccine, High Dose, 00:00:00 Age 65 And Up Influenza Virus 2017-12-20 Completed Susanna Se ybold Vaccine, High Dose, 00:00:00 Age 65 And Up Influenza Virus 2017-12-20 Completed Susanna Se ybold Vaccine, High Dose, 00:00:00 Age 65 And Up Influenza Virus 2017-12-20 Completed Susanna Se ybold Vaccine, High Dose, 00:00:00 Age 65 And Up Influenza Virus 2017-08-17 Completed Susanna Se ybold Vaccine, High Dose, 00:00:00 Age 65 And Up Influenza Virus 2017-08-17 Completed Susanna Se ybold Vaccine, High Dose, 00:00:00 Age 65 And Up Influenza Virus 2017-08-17 Completed Susanna Se ybold Vaccine, High Dose, 00:00:00 Age 65 And Up Influenza Virus 2017-08-17 Completed Susanna Se ybold Vaccine, High Dose, 00:00:00 Age 65 And Up Influenza Virus 2017-08-17 Completed Susanna Se ybold Vaccine, High Dose, 00:00:00 Age 65 And Up Influenza Virus 2016-07-21 Completed Susanna Se ybold Vaccine, High Dose, 00:00:00 Age 65 And Up Influenza Virus 2016-07-21 Completed Susanna Se ybold Vaccine, High Dose, 00:00:00 Age 65 And Up Influenza Virus 2016-07-21 Completed Susanna Se ybold Vaccine, High Dose, 00:00:00 Age 65 And Up Influenza Virus 2016-07-21 Completed Susanna Se ybold Vaccine, High Dose, 00:00:00 Age 65 And Up Influenza Virus 2016-07-21 Completed Susanna Se ybold Vaccine, High Dose, 00:00:00 Age 65 And Up Influenza Virus 2015-08-12 Completed Susanna Se ybold Vaccine, High Dose, 00:00:00 Age 65 And Up Influenza Virus 2015-08-12 Completed Susanna Se ybold Vaccine, High Dose, 00:00:00 Age 65 And Up Influenza Virus 2015-08-12 Completed Susanna Se ybold Vaccine, High Dose, 00:00:00 Age 65 And Up Influenza Virus 2015-08-12 Completed Susanna Se ybold Vaccine, High Dose, 00:00:00 Age 65 And Up Influenza Virus 2015-08-12 Completed Susanna Se ybold Vaccine, High Dose, 00:00:00 Age 65 And Up Influenza Virus 2014-08-21 Completed Susanna Se ybold Vaccine, High Dose, 00:00:00 Age 65 And Up Influenza Virus 2014-08-21 Completed Susanna Se ybold Vaccine, High Dose, 00:00:00 Age 65 And Up Influenza Virus 2014-08-21 Completed Susanna Se ybold Vaccine, High Dose, 00:00:00 Age 65 And Up Influenza Virus 2014-08-21 Completed Susanna Se ybold Vaccine, High Dose, 00:00:00 Age 65 And Up Influenza Virus 2014-08-21 Completed Susanna Se ybold Vaccine, High Dose, 00:00:00 Age 65 And Up Influenza Virus 2013-08-14 Completed Susanna Se ybold Vaccine, High Dose, 00:00:00 Age 65 And Up Influenza Virus 2013-08-14 Completed Susanna Se ybold Vaccine, High Dose, 00:00:00 Age 65 And Up Influenza Virus 2013-08-14 Completed Susanna Se ybold Vaccine, High Dose, 00:00:00 Age 65 And Up Influenza Virus 2013-08-14 Completed Susanna Se ybold Vaccine, High Dose, 00:00:00 Age 65 And Up Influenza Virus 2013-08-14 Completed Susanna Se ybold Vaccine, High Dose, 00:00:00 Age 65 And Up Influenza Virus 2011-08-04 Completed Susanna Se ybold Vaccine, No Preserv, 00:00:00 age 6 months and up Influenza Virus 2011-08-04 Completed Susanna Se ybold Vaccine, No Preserv, 00:00:00 age 6 months and up Influenza Virus 2011-08-04 Completed Suasnna Se ybold Vaccine, No Preserv, 00:00:00 age 6 months and up Influenza Virus 2011-08-04 Completed Susanna Se ybold Vaccine, No Preserv, 00:00:00 age 6 months and up Influenza Virus 2011-08-04 Completed Susanna Se ybold Vaccine, No Preserv, 00:00:00 age 6 months and up Shingles SQ (Zostavax) 2011-01-30 Completed Ke lsey Seybold 00:00:00 Shingles SQ (Zostavax) 2011-01-30 Completed Ke lsey Seybold 00:00:00 Shingles SQ (Zostavax) 2011-01-30 Completed Ke lsey Seybold 00:00:00 Shingles SQ (Zostavax) 2011-01-30 Completed Ke lsey Seybold 00:00:00 Shingles SQ (Zostavax) 2011-01-30 Completed Ke lsey Seybold 00:00:00 Influenza Virus 2010-08-13 Completed Susanna Se ybold Vaccine, age 6 months 00:00:00 and up Influenza Virus 2010-08-13 Completed Susanna Se ybold Vaccine, age 6 months 00:00:00 and up Influenza Virus 2010-08-13 Completed Susanna Se ybold Vaccine, age 6 months 00:00:00 and up Influenza Virus 2010-08-13 Completed Susanna Se ybold Vaccine, age 6 months 00:00:00 and up Influenza Virus 2010-08-13 Completed Susanna Se ybold Vaccine, age 6 months 00:00:00 and up Influenza Virus 2008-10-10 Completed Susanna Se ybold Vaccine, age 6 months 00:00:00 and up Influenza Virus 2008-10-10 Completed Susanna Se ybold Vaccine, age 6 months 00:00:00 and up Influenza Virus 2008-10-10 Completed Susanna Se ybold Vaccine, age 6 months 00:00:00 and up Influenza Virus 2008-10-10 Completed Susanna Se ybold Vaccine, age 6 months 00:00:00 and up Influenza Virus 2008-10-10 Completed Susanna Se ybold Vaccine, age 6 months 00:00:00 and up Pneumococcal Vaccine, 2007-02-10 Completed Chuy sey Seybold Polysaccharide 00:00:00 Pneumococcal Vaccine, 2007-02-10 Completed Chuy sey Seybold Polysaccharide 00:00:00 Pneumococcal Vaccine, 2007-02-10 Completed Chuy sey Seybold Polysaccharide 00:00:00 Pneumococcal Vaccine, 2007-02-10 Completed Chuy sey Seybold Polysaccharide 00:00:00 Pneumococcal Vaccine, 2007-02-10 Completed Chuy sey Seybold Polysaccharide 00:00:00 Vital Signs Vital Name Observation Time Observation Value Comments Source HEIGHT 2021-11-18 12:19:00 154.9 cm WEIGHT 2021-11-18 12:19:00 49.896 kg Systolic blood pressure 2021-11-11 17:22:00 122 mm[Hg] Susanna Seybold Diastolic blood 2021-11-11 17:22:00 73 mm[Hg] Kelse y Seybold pressure Heart rate 2021-11-11 17:22:00 74 /min Susanna S eybold Body temperature 2021-11-11 17:22:00 34.94 Janay Toya ey Seybold Respiratory rate 2021-11-11 17:22:00 16 /min Toya ey Seybold Body height 2021-11-11 17:22:00 149.9 cm Susanna S eybold Body weight 2021-11-11 17:22:00 33.475 kg Susanna S eybold BMI 2021-11-11 17:22:00 14.91 kg/m2 Susanna S eybold Systolic blood pressure 2021-10-09 21:33:00 118 mm[Hg] Susanna Seybold Diastolic blood 2021-10-09 21:33:00 80 mm[Hg] Kelse y Seybold pressure Heart rate 2021-10-09 21:33:00 80 /min Susanna S eybold Respiratory rate 2021-10-09 21:33:00 18 /min Toya ey Seybold Body height 2021-10-09 21:33:00 149.9 cm Susanna S eybold Body weight 2021-10-09 21:33:00 36.106 kg Susanna Frankel eybold BMI 2021-10-09 21:33:00 16.08 kg/m2 Susanna Frankel eybold Systolic blood pressure 2021-10-01 20:37:00 127 mm[Hg] Susanna Seybold Diastolic blood 2021-10-01 20:37:00 68 mm[Hg] Kelse y Seybold pressure Heart rate 2021-10-01 20:37:00 80 /min Susanna clarkboalexy Body temperature 2021-10-01 20:37:00 36.44 Janay Toya ey Seybold Respiratory rate 2021-10-01 20:37:00 16 /min Toya clark Seybold Body height 2021-10-01 20:37:00 160 cm Susanna Frankel eybold Body weight 2021-10-01 20:37:00 34.473 kg Susanna clarkbold BMI 2021-10-01 20:37:00 13.46 kg/m2 Susanna clarkboalexy Procedures Procedure Date / Time Performed Performing Clinician [facility] e HGB A1C WITH MBG ESTIMATION 2021-10-01 22:21:00 Morelia Marie hi Susanna Seybold CBC WITH 2021-10-01 22:20:00 Karly Marie Se ybold DIFFERENTIAL/PLATELET COMP. METABOLIC PANEL (14) 2021-10-01 22:20:00 Jennifer Marie i Susanna Seybold Encounters Start End Encounter Admission Attending Care Care Encounter Source Date/Time Date/Time Type Type Clinicians Facility Department ID 2021-03-19 Inpatient HCANW ANAHI [id number] [facility] 18:57:00 [id number] [facility] 2022-05-01 2022-05-01 Outpatient SUSANNA MANDEL [id number] [place] 14:20:00 14:20:00 KALIN ybol d 2022-03-25 2022-03-25 Outpatient DANGELO VAUGHN [id number] [place] 15:20:00 15:20:00 , JHONATAN Fernandes ld 2022-01-23 2022-01-23 Outpatient SUSANNA VAUGHN [id number] [place] 09:00:00 09:00:00 Seybol d 2021-12-05 2021-12-05 Outpatient SUSANNA VAUGHN [id number] [place] 00:00:00 00:00:00 Seybol d 2021-12-05 2021-12-05 Outpatient KERON SUSANNA VAUGHN [id number] [place] 00:00:00 00:00:00 MELBA Seybol d 2021-12-05 2021-12-05 Outpatient SUSANNA VAUGHN [id number] [place] 00:00:00 00:00:00 Seybol d 2021-12-02 2021-12-02 Outpatient MAY SUSANNA VAUGHN [id number] [place] 00:00:00 00:00:00 SHAJUAN Seybol d 2021-11-18 2021-11-18 Emergency ER NATY ODEN [facility] Emergency 20 [id number] [facility] 12:22:00 17:28:00 2021-11-18 2021-11-18 Outpatient SUSANNA MARIE [id number] [place] 00:00:00 00:00:00 KARLY Seybol d 2021-11-11 2021-11-11 Outpatient PTF09-DPS SUSANNA VAUGHN [id number] [place] 14:05:00 14:05:00 Seybol d 2021-11-11 2021-11-11 Office AURY Marie [id number] Susanna 11:30:00 11:45:00 Visit [facility] MEDICAL [id number] Se ybold AND 1.2.7.2.686 DIAGNOSTI [id number] CENTER 0 2021-11-08 2021-11-08 Outpatient SUSANNA MARIE [id number] [place] 00:00:00 00:00:00 KARLY Seybol d 2021-10-30 2021-10-30 Outpatient SUSANNA MANDEL [id number] [place] 14:30:00 14:30:00 KALIN Seybol d 2021-10-30 2021-10-30 Outpatient SUSANNA VAUGHN [id number] [place] 00:00:00 00:00:00 Seybol d 2021-10-22 2021-10-22 Outpatient GUMMELT, SUSANNA VAUGHN [id number] [place] 00:00:00 00:00:00 JOSHUA Seybol d 2021-10-15 2021-10-15 Outpatient SUSANNA VAUGHN [id number] [place] 00:00:00 00:00:00 Seybol d 2021-10-10 2021-10-10 Outpatient TRISTANANI, SUSANNA VAUGHN [id number] [place] 00:00:00 00:00:00 KARLY Seybol d 2021-10-10 2021-10-10 Outpatient GUMMELT, SUSANNA VAUGHN [id number] [place] 00:00:00 00:00:00 JOSHUA Seybol d 2021-10-09 2021-10-09 Palliative GUMMELT, [place] [id number] Susanna 15:45:00 15:45:00 Care JOSHUA MEDICAL [id number] Se ybold AND 1.2.7.2.686 DIAGNOSTI [id number] CENTER 0 2021-10-08 2021-10-08 Outpatient SUSANNA VAUGHN [id number] [place] 16:00:00 16:00:00 Seybol d 2021-10-06 2021-10-06 Outpatient FRANK, SUSANNA VAUGHN [id number] [place] 00:00:00 00:00:00 KARLY Seybol d 2021-10-02 2021-10-02 Outpatient GUMMELT, SUSANNA VAUGHN [id number] [place] 00:00:00 00:00:00 JOSHUA Seybol d 2021-10-01 2021-10-01 Outpatient LAB44 SUSANNA VAUGHN [id number] [place] 16:25:00 16:25:00 Seybol d 2021-10-01 2021-10-01 Outpatient LAB44 SUSANNA VAUGHN [id number] [place] 16:20:00 16:20:00 Seybol d 2021-10-01 2021-10-01 Office Chimari, [place] [id number] Susanna 14:30:06 14:45:06 Visit Karly MEDICAL 350.1.13.13 Se ybold AND 1.2.7.2.686 DIAGNOSTI [id number] C CENTER 0 2021-09-24 2021-09-24 Outpatient JANI SUSANNA VAUGHN [id number] [place] 00:00:00 00:00:00 MD GIULIA Seybol d 2021-09-23 2021-09-23 [facility]med[facility] [id number] Susanna 15:27:01 16:00:58 Jhonatan beverly 350.1.13.13 Seybold AND 1.2.7.2.686 DIAGNOSTI [id number] C CENTER 0 2021-09-18 2021-09-18 Outpatient SUSANNA PACHECO [id number] [place] 15:20:00 15:20:00 JOSE F Seybol d 2021-09-18 2021-09-18 Outpatient SUSANNA MENDOZA [id number] [place] 09:30:00 09:30:00 LANIE Seybo ld 2021-09-11 2021-09-11 Outpatient SUSANNA MARIE [id number] [place] 00:00:00 00:00:00 KARLY Seybol d 2021-08-14 2021-08-14 Outpatient REENA MARINO SUSANNA VAUGHN [id number] [place] 10:55:00 10:55:00 Seybol d 2021-08-14 2021-08-14 Office MUNDO Mendoza [id number] Sus[place] 09:23:26 09:38:26 Visit Lanie Booker 350.1.13.13 S guerrero Alves 1.2.7.2.686 [id number] 2021-08-05 2021-08-05 Outpatient SUSANNA MENDOZA [id number] [place] 13:30:00 13:30:00 LANIE Seybo ld 2021-07-31 2021-07-31 Outpatient SUSANNA PACHECO [id number] [place] 10:00:00 10:00:00 JOSE F Seybol d 2021-07-31 2021-07-31 Outpatient PACHECOSUSANNA GRADY [id number] [place] 10:00:00 10:00:00 JOSE F Seybol d 2021-07-21 2021-07-21 Outpatient SUSANNA JERONIMO [id number] [place] 15:20:00 15:20:00 RADHA Seybol d 2021-07-18 2021-07-18 Outpatient PUTSUSANNA BLAKE [id number] [place] 00:00:00 00:00:00 KALIN Seybol d 2021-07-18 2021-07-18 Outpatient SUSANNA MCKOY [id number] [place] 00:00:00 00:00:00 JUDITH Seybol d 2021-07-17 2021-07-17 Outpatient SSUANNA MENDOZA [id number] [place] 11:00:00 11:00:00 LANIE Seybo ld 2021-07-16 2021-07-16 Outpatient SUSANNA MARIE [id number] [place] 00:00:00 00:00:00 KARLY Seybol d 2021-07-07 2021-07-07 Outpatient SUSANNA JERONIMO [id number] [place] 14:20:00 14:20:00 RADHA Seybol d 2021-07-07 2021-07-07 Outpatient SUSANNA VAUGHN [id number] [place] 09:15:00 09:15:00 Seybol d 2021-07-05 2021-07-05 Outpatient ANUPAMA VAUGHN [id number] [place] 08:05:00 08:05:00 Seybol d 2021-06-25 2021-06-25 Outpatient SUSANNA MANDEL [id number] [place] 00:00:00 00:00:00 KALIN Seybol d 2021-06-06 2021-06-06 Outpatient SUSANNA MARIE [id number] [place] 00:00:00 00:00:00 KARLY Seybol d 2021-06-05 2021-06-05 Outpatient SUSANNA VAUGHN [id number] [place] 13:45:00 13:45:00 Seybol d 2021-06-05 2021-06-05 Outpatient SUSANNA MANDEL SUSANNA [id number] [place] 10:40:00 10:40:00 KALIN Seybol d 2021-05-22 2021-05-22 Outpatient SUSANNA MARIE SUSANNA [id number] [place] 10:30:00 10:30:00 KARLY Seybol d 2021-01-23 2021-01-23 Outpatient ELLEN, [facility] [id number] [place] 00:00:00 00:00:00 CHRISTOPHER 159 Me thodi 2021-01-02 2021-01-02 Outpatient [facility] [id number] [place] 00:00:00 00:00:00 091 Method i 2020-12-26 2020-12-26 Outpatient MANE-SBO [facility] [id number] [place] 00:00:00 00:00:00 RDONI, [address] Results Test Description Test Time Test Comments Results Result [facility] e Comments CT, BRAIN, WITHOUT 2021-11-18 Unlisted Reason CONTRAST 13:27:00 for Exam - Click Yes and CHI Enter Reason [facility] - MEDICAL Below->No CENTERName: LYNN CELIS : 1935 Sex: F FI NAL REPORT CT, BRAIN, WITHOUT CONTRAST, CT, SPINE, CERVICAL, WO CONTRAST CLINICAL INDICATION: Head trauma, minor (Age > 65y) COMPARISON: None TECHNIQUE: Noncontrast axial CT imaging of the brain and cervical spine. DOSE REDUCTION: Dose modulation, iterative reconstruction, and/or weight-based adjustment of the mA/kV was utilized to reduce the radiation dose to as low as reasonably achievable. FINDINGS:CT BRAIN W/O: No intracranial hemorrhage, midline shift or mass effect. Midline structures are normally developed. Mild chronic microvascular ischemic changes of the periventricular and subcortical white matter are present. No hydrocephalus. Orbits are within normal limits. No obstructive paranasal sinus disease. CT CERVICAL SPINE W/O: Alignment of the cervical spine is within normal limits. Mild grade 1 anterolisthesis of C3 on C4 with reversal of cervical lordosis centered at C4.Mild multilevel disc space height loss.No acute findings within the paraspinal soft tissues. IMPRESSION: No acute intracranial findings No acute fracture of the cervical spine. If there is persistent clinical concern for intracranial pathology, MR examination is recommended for further characterization. Signed: Coco Dang MDReport Verified Date/Time: 11/18/2021 13:27:27 , SPINE, 2021-11-18 Unlisted Reason CERVICAL, WO 13:27:00 for Exam - CONTRAST Click Yes and CHI Enter Reason [facility] Below->No CENTERName: LYNN CELIS : 1935 Sex: F FI NAL REPORT CT, BRAIN, WITHOUT CONTRAST, CT, SPINE, CERVICAL, WO CONTRAST CLINICAL INDICATION: Head trauma, minor (Age > 65y) COMPARISON: None TECHNIQUE: Noncontrast axial CT imaging of the brain and cervical spine. DOSE REDUCTION: Dose modulation, iterative reconstruction, and/or weight-based adjustment of the mA/kV was utilized to reduce the radiation dose to as low as reasonably achievable. FINDINGS:CT BRAIN W/O: No intracranial hemorrhage, midline shift or mass effect. Midline structures are normally developed. Mild chronic microvascular ischemic changes of the periventricular and subcortical white matter are present. No hydrocephalus. Orbits are within normal limits. No obstructive paranasal sinus disease. CT CERVICAL SPINE W/O: Alignment of the cervical spine is within normal limits. Mild grade 1 anterolisthesis of C3 on C4 with reversal of cervical lordosis centered at C4.Mild multilevel disc space height loss.No acute findings within the paraspinal soft tissues. IMPRESSION: No acute intracranial findings No acute fracture of the cervical spine. If there is persistent clinical concern for intracranial pathology, MR examination is recommended for further characterization. Signed: Coco Dang Verified Date/Time: 11/18/2021 13:27:27 , HUMERUS, MIN 2021-11-18 Reason for 2 VIEWS, LEFT 12:59:00 exam:->FALLPt tripped and CHI fell this [facility] morning in the CENTERName: VIMAL, bathroom. CLEOFUS NEAL Complains of : 1935 pain to the Sex: left elbow. F FI [facility] REPORT RAD, HUMERUS, MIN 2 VIEWS, LEFT CLINICAL INDICATION: FALL COMPARISON: None FINDINGS: AP and lateral radiographs of the left humerus. The humeral shaft is intact. Morphology and positioning of the humeral head are grossly normal. Limited views of the radiocapitellar joint are unremarkable. Soft tissue structures are within normal limits. IMPRESSION: Intact humerus. Signed: JR Cloud Robert MDReport Verified Date/Time: 11/18/2021 12:59:40 Reading Location: [facility] Radiology Reading Room A1C WITH MBG ESTIMATION 2021-10-02 19:36:00 Test Item Value Reference Range Interpretation Comme nts HEMOGLOBIN A1C (test code 5.6 % 4.8-5.6 ? = 4548-4) ? . ? Predi abetes: 5.7 - 6.4 ? D iabetes: >6.4 ? Gl ycemic control for karen lts with diabetes: <7.0 ESTIM. AVG GLU (EAG) 114 mg/dL (test code = 23982-0) PROMISE (test code = PROMISE) [facility] results reported in Eastern Time. [facility] Clinical Information:SRC:Blood, venous*Venipunc ture ? [facility] Source of Specimen:Blood, venous*Venipunc Susanna [facility] WITH DIFFERENTIAL/[id number] 11:09:00 Test Item Value Reference Range Interpretation Comments WHITE BLOOD CELL See_Comment [Automated (WBC) COUNT (test message] T he code = 6690-2) system which generated this result transmit maame reference range : 3.4 - 10.8 x10E3/uL. The reference range was not used to interpret this result as normal/abnormal . RED BLOOD CELL (RBC) See_Comment [Autom ated COUNT (test code = message] The 789-8) system which generated this result transmit maame reference range : 3.77 - 5.28 x10E6/uL. The reference range was not used to interpret this result as normal/abnormal . HEMOGLOBIN (test code 11.9 g/dL 11.1-15.9 = 718-7) HEMATOCRIT (test code 38.0 % 34.0-46.6 = 4544-3) MCV (test code = 89 fL 79-97 787-2) MCH (test code = 27.9 pg 26.6-33.0 785-6) MCHC (test code = 31.3 g/dL 31.5-35.7 L 786-4) RDW (test code = 15.0 % 11.7-15.4 788-0) PLATELETS (test code See_Comment [Autom ated = 777-3) message] The system which generated this result transmit maame reference range : 150 - 450 x10E3/uL. The reference range was not used to interpret this result as normal/abnormal . NEUTROPHILS (test 60 % Not Estab. code = 770-8) LYMPHS (test code = 27 % Not Estab. 736-9) MONOCYTES (test code 10 % Not Estab. = 5905-5) EOS (test code = 2 % Not Estab. 713-8) BASOS (test code = 1 % Not Estab. 706-2) NEUTROPHILS See_Comment [Automated (ABSOLUTE) (test code messag e] The = 751-8) system which generated this result transmit maame reference range : 1.4 - 7.0 x10E3/uL. The reference range was not used to interpret this result as normal/abnormal . LYMPHS (ABSOLUTE) See_Comment [Automate d (test code = 731-0) message] The system which generated this result transmit maame reference range : 0.7 - 3.1 x10E3/uL. The reference range was not used to interpret this result as normal/abnormal . MONOCYTES(ABSOLUTE) See_Comment [Automa maame (test code = 742-7) message] The system which generated this result transmit maame reference range : 0.1 - 0.9 x10E3/uL. The reference range was not used to interpret this result as normal/abnormal . EOS (ABSOLUTE) (test See_Comment [Autom ated code = 711-2) message] The system which generated this result transmit maame reference range : 0.0 - 0.4 x10E3/uL. The reference range was not used to interpret this result as normal/abnormal . BASO (ABSOLUTE) (test See_Comment [Auto mated code = 704-7) message] The system which generated this result transmit maame reference range : 0.0 - 0.2 x10E3/uL. The reference range was not used to interpret this result as normal/abnormal . IMMATURE GRANULOCYTES 0 % Not Estab. (test code = 02022-0) IMMATURE GRANS (ABS) See_Comment [Autom ated (test code = 91685-1) messag e] The system which generated this result transmit maame reference range : 0.0 - 0.1 x10E3/uL. The reference range was not used to interpret this result as normal/abnormal . PROMISE (test code = PROMISE) [facility] results reported in Eastern Time. [facility] Clinical Information:SRC :Blood, venous*Venipunc ture ? [facility] Source of Specimen:Blood, venous*Venipunc Lab Interpretation Abnormal (test code = 17469-8) Susanna Painting. METABOLIC PANEL (14)2021-10-02 11:09:00 Test Item Value Reference Range Interpretation Comments GLUCOSE, SERUM (test 112 mg/dL 65-99 H code = 2345-7) BUN (test code = 22 mg/dL 8-27 3094-0) CREATININE, SERUM 0.88 mg/dL 0.57-1.00 (test code = 2160-0) EGFR IF NONAFRICN AM 61 mL/min/1.73 >59 (test code = 56026-5) EGFR IF AFRICN AM 70 mL/min/1.73 >59 In acc ordance with (test code = recommendations from 35249-3) the NKF-ASN Tas k force, ?[facility] is in the process of updating its eG FR calculation to the ?2020 CKD-EPI creatinine equa tion that estimates kidney function ?witho ut a race variable. BUN/CREATININE RATIO 12-28 (test code = 3097-3) SODIUM, SERUM (test 147 mmol/L 134-144 H code = 2951-2) POTASSIUM, SERUM 3.8 mmol/L 3.5-5.2 (test code = 2823-3) CHLORIDE, SERUM 108 mmol/L 96-106 H (test code = 2074-0) CARBON DIOXIDE, 27 mmol/L 20-29 TOTAL (test code = 2027-) CALCIUM, SERUM (test 10.2 mg/dL 8.7-10.3 code = 35067-8) PROTEIN, TOTAL, 6.0 g/dL 6.0-8.5 SERUM (test code = 2885-2) ALBUMIN, SERUM (test 3.6 g/dL 3.6-4.6 code = 1751-7) GLOBULIN, TOTAL 2.4 g/dL 1.5-4.5 (test code = 28586-4) A/G RATIO (test code 1.2-2.2 = 1759-0) BILIRUBIN, TOTAL 0.5 mg/dL 0.0-1.2 (test code = 1975-2) ALKALINE See_Comment PHOSPHATASE, SERUM Please note (test code = 6768-6) referen ce interval change [Autom ated message] The sy stem which generated this result transmit maame reference range : 44 - 121 IU/L. The reference range was not used to int erpret this result as normal/abnormal . AST (SGOT) (test See_Comment [Automated message] code = 1920-8) The system [employer] generated this result transmitted ref erence range: 0 - 40 I U/L. The reference r brady was not used to interpret this result as normal/abnor mal. ALT (SGPT) (test See_Comment [Automated message] code = 1742-6) The system [employer] generated this result transmitted ref erence range: 0 - 32 I U/L. The reference r brady was not used to interpret this result as normal/abnor mal. PROMISE (test code = [facility] PROMISE) results reported in Eastern Time. [facility] Clinical Information:LC A Source of Specimen:Blood , venous*Venipun c Lab Interpretation Abnormal (test code = 77493-6) Susanna Becerra- CT HEAD/BRAIN W/O [id number] 20:01:00 [facility] [place] : 1935 Sex: FPatient Name: MARY CELIS [place] Unit No: [id number] EXAMS: CPT: [id number] CT HEAD/BRAIN W/O CONT 09024 CT HEAD WITHOUT CONTRAST. HISTORY: Fall, head injury COMPARISON: No previous pertinent examination is available. Comment: CT radiation dose optimization is achieved for this examination by the use of a CT protocol in accordance with ACR practice standards and adherence to manufacturers recommendations One or more ofthe following dose reduction techniques were used: Automated exposure control, adjustment of the mA and/or KV according to patient size, and/or utilization of iterative reconstructiontechnique. 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 Scattered low attenuation foci in the periventricular white matter are present, likely consistent with microangiopathy. Cortical atrophy is also noted. No obvious acute infarct is seen although limited in evaluation, MRI is much more sensitive. No acute intracranial hemorrhage ormass effect is seen. The ventricles and sulci are otherwise within normal limits for agewithout midline shift. No abnormal intra-axial or extra-axial fluid collections are seen. Mild mucosal thickening in paranasal sinuses. The calvarium is intact. IMPRESSION: Microangiopathy and atrophy. No acute intracranial abnormality is noted. If additional imaging is clinically indicated to detect such things as a cute infarct consider follow up MRI of the Brain at 2000 Reported and signed by: Kye Francois MD CC: Technologist: Wen Whitmore CTDI: 23.11 DLP: 369.74 Trscr Dt/Tm: 03/19/2021 (2000) by:[email or web address] Orig Print D/T: S: 03/19/2021 (2003) BATCH NO: N/A Name: MARY CELIS [facility] Phys: [id number] - Ramiro Isaac MD [address] [facility] : 1935 Age: 85 Sex: [place] [address] Loc: N.ERS Exam Date: 03/19/2021 Status: PRE ER PH: FAX: PAGE 1 Signed ReportCT, [id number] 17:58:00Reason for exam:->VAGINAL BLEEDINGWhat is the patient's sedation requirement?->No SedationFINAL REPORT CT of the abdomen and pelvis, without contrast Clinical History: VAGINAL BLEEDINGs/p pelvic fracture Technique: CT of the abdomen and pelvis is performed without intravenous contrast administration. This exam was performed according to our departmental dose optimization program which includes automated exposure control, adjustment of the mA and/or kV according to p atient's size and/or use of iterative reconstructive technique. Comparison Film: None Discussion: Mild emphysematous changes are noted at the lung bases. No liver lesion is identified on this noncontrast exam. No evidence of biliary ductal dilatation. Gallbladder is not clearly identified. The spleen, pancreas appear unremarkable. There is a 3.6 x 3 cm low density right adrenal mass, measuring approximately 8 Hounsfield units on average, likely to represent an adenoma. Kidneys demonstrate no hydronephrosis, or radiopaque stone. Multifocal calcifications in the renal sinus may reflect vascular calcification and/or small nonobstructive stones. There is no evidence of bowel obstruction, or abnormal bowel wall thickening. Evaluation is suboptimal versus underlying and oral contrast. No pericecal inflammatory change identified. In pelvis, bladder is decompressed and not well evaluated. Uterus is notclearly identified. No adnexal mass. Note evaluation of pelvic soft tissue is suboptimal due to streak artifact from hip hardware. Bony mineralization is decreased. There is scoliosis of the lumbar spine. Status post ORIF of the left femur, and right hip total arthroplasty. There are comminuted parasymphyseal left pubic rami fractures with mild degree of adjacent perineal soft tissue swelling. There are also left sacral alae insufficiency fractures. No discrete hematoma is identified. There is advanced vascular calcification. No free air, ascites, or adenopathy identified. Impression: Left sacral alae insufficiency fractures. Left parasymphyseal pubic rami fractures with adjacent soft tissue swelling. If there is concern for bladder integrity, CT cystogram may be considered if clinically appropriate. Renal vascular calcifications and/or small nonobstructive stones in both kidneys. 3.6 x 3 cm low-density right adrenal mass, favor an adenoma. Advanced vascular calcification. Findings discussed with Dr. Lopez Signed: Yoshi Hernandez Verified Date/Time: 12/20/2018 17:58:35 Reading Location: [facility] B1 [id number] Consult Reading Room URINALYSIS W/ [id number] 17:21:00 Test Item Value Reference Range Interpretation Comments COLOR (BEAKER) (test code = 470) Yellow CLARITY (BEAKER) (test code = 469) Cloudy SPECIFIC GRAVITY UA (BEAKER) (test >= 1.001-1.035 code = 468) PH UA (BEAKER) (test code = 467) 5.0 5.0-8.0 PROTEIN UA (BEAKER) (test code = 30 mg/dL Negative A 464) GLUCOSE UA (BEAKER) (test code = Negative Negative 365) KETONES UA (BEAKER) (test code = Trace Negative A 371) BILIRUBIN UA (BEAKER) (test code = Positive Negative A 462) BLOOD UA (BEAKER) (test code = 461) Negative Negative NITRITE UA (BEAKER) (test code = Negative Negative 465) LEUKOCYTE ESTERASE UA (BEAKER) Negative Negative (test code = 466) UROBILINOGEN UA (BEAKER) (test code 0.2 mg/dL 0.2-1.0 = 463) BACTERIA (BEAKER) (test code = 517) Many RBC UA-MANUAL (BEAKER) (test code = <5 /HPF 1659) WBC UA-MANUAL (BEAKER) (test code = 5-10 /HPF 1661) SOURCE(BEAKER) (test code = 7921) [id number] 17:08:00 Test Item Value Reference Range Interpretation Comments PROTIME (BEAKER) (test code = 10.4 seconds 9.8-12.0 759) INR (BEAKER) (test code = 370) 1.0 <=5.9 PARTIAL THROMBOPLASTIN TIME 27.3 seconds 25.8-34.5 (BEAKER) (test code = 760) RECOMMENDED COUMADIN/WARFARIN INR THERAPY RANGESSTANDARD DOSE: 2.0 - 3.0 Includes: PROPHYLAXIS forvenous thrombosis, systemic embolization; TREATMENT for venous thrombosis and/or pulmonary embolus.HIGH RISK: Target INR is 2.5-3.5 for patients with mechanical heart valves.COMPREHENSIVE METABOLIC [id number] 17:06:00 Test Item Value Reference Range Interpretation Comments TOTAL PROTEIN 6.2 gm/dL 6.0-8.5 (BEAKER) (test code = 770) ALBUMIN (BEAKER) 3.3 g/dL 3.5-5.0 L (test code = 1145) ALKALINE PHOSPHATASE 89 U/L 30-115 (BEAKER) (test code = 346) BILIRUBIN TOTAL 0.9 mg/dL 0.1-1.2 (BEAKER) (test code = 377) SODIUM (BEAKER) (test 139 meq/L 135-148 code = 381) POTASSIUM (BEAKER) 4.1 meq/L 3.6-5.5 (test code = 379) CHLORIDE (BEAKER) 106 meq/L 98-106 (test code = 382) CO2 (BEAKER) (test 23 meq/L 20-29 code = 355) BLOOD UREA NITROGEN 24 mg/dL 10-26 (BEAKER) (test code = 354) CREATININE (BEAKER) 1.02 mg/dL 0.50-1.20 (test code = 358) GLUCOSE RANDOM 92 mg/dL 70-110 (BEAKER) (test code = 652) CALCIUM (BEAKER) 10.3 mg/dL 8.5-10.5 (test code = 697) AST (SGOT) (BEAKER) 27 U/L 5-40 (test code = 353) ALT (SGPT) (BEAKER) 22 U/L 5-50 (test code = 347) EGFR (BEAKER) (test 52 mL/min/1.73 ESTIMA MAAME GFR IS code = 1092) sq m NOT ACCURATE CREATININE CLEARANCE IN PREDICTING GLOMERULAR FILTRATION RATE . ESTIMATED GFR I S NOT APPLICABLE FOR DIALYSIS PATIEN TS. CBC W/PLT COUNT & AUTO [id number] 16:50:00 Test Item Value Reference Range Interpretation Comments WHITE BLOOD CELL COUNT (BEAKER) 14.8 K/ L 4.0-10.0 H (test code = 775) RED BLOOD CELL COUNT (BEAKER) 3.53 M/ L 4.00-5.00 L (test code = 761) HEMOGLOBIN (BEAKER) (test code = 10.8 GM/DL 12.0-15.5 L 410) HEMATOCRIT (BEAKER) (test code = 32.6 % 36.0-46.0 L 411) MEAN CORPUSCULAR VOLUME (BEAKER) 92.4 fL 82.0-99.0 (test code = 753) MEAN CORPUSCULAR HEMOGLOBIN 30.6 pg 27.0-33.0 (BEAKER) (test code = 751) MEAN CORPUSCULAR HEMOGLOBIN CONC 33.1 GM/DL 32.0-36.0 (BEAKER) (test code = 752) RED CELL DISTRIBUTION WIDTH 15.2 % 12.0-15.0 H (BEAKER) (test code = 412) PLATELET COUNT (BEAKER) (test 208 K/CU MM 150-430 code = 756) MEAN PLATELET VOLUME (BEAKER) 9.4 fL 6.0-11.5 (test code = 754) NUCLEATED RED BLOOD CELLS 0 /100 WBC 0-0 (BEAKER) (test code = 413) NEUTROPHILS RELATIVE PERCENT 80 % (BEAKER) (test code = 429) LYMPHOCYTES RELATIVE PERCENT 11 % (BEAKER) (test code = 430) MONOCYTES RELATIVE PERCENT 8 % (BEAKER) (test code = 431) EOSINOPHILS RELATIVE PERCENT 0 % (BEAKER) (test code = 432) BASOPHILS RELATIVE PERCENT 0 % (BEAKER) (test code = 437) NEUTROPHILS ABSOLUTE COUNT 11.94 K/ L 1.80-8.00 H (BEAKER) (test code = 670) LYMPHOCYTES ABSOLUTE COUNT 1.68 K/ L 1.48-4.50 (BEAKER) (test code = 414) MONOCYTES ABSOLUTE COUNT (BEAKER) 1.14 K/ L 0.00-1.30 (test code = 415) EOSINOPHILS ABSOLUTE COUNT 0.00 K/ L 0.00-0.50 (BEAKER) (test code = 416) BASOPHILS ABSOLUTE COUNT (BEAKER) 0.04 K/ L 0.00-0.20 (test code = 417) IMMATURE GRANULOCYTES-RELATIVE 0 % 0-0 PERCENT (BEAKER) (test code = 2801) [facility], MULTI, PHARM, [id number] 07:51:00FINAL REPORT PROCEDURE: Myocardial Perfusion Imaging with Pharmacologic Stress PHARMACOLOGIC INDICATION: Reason for pharmacologic stress is instability on feet. PROTOCOL:This was a one day study and the imaging sequence was rest/stress. Tomographic (SPECT) myocardial perfusion imaging was performed at rest 122 minutes after the intravenous injection of 10.5 mCi Tc-99m sestamibi. During Lexiscan (regadenoson) stress, the patient was injected with 29.7 mCi Tc- 99m sestamibi intravenously. Gated post-stress imaging was performed 112 minutes after stress. Pharmacologic stress testing was performed with the intravenous injection of 0.4 mg Lexiscan within 30 seconds. The patient's heart rate went from 69 beats/minute at rest to 100 beats/minute during stress. The blood pressure went from 178/77 mm Hg at rest to 178/103 mm Hg during recovery, which is a hypertensive response to pharmacologic stress. The patient did not complain of chest pain at rest. The patient did not complain of chest pain during stress. The resting electrocardiogram (ECG) showed sinus rhythm and demonstrated PACs, but not ST-segment changes during stress. FINDINGS:The overall quality of the study is good. Perfusion SPECT images at rest and stress show a small sized area of mild intensity reversible defect in apical segment suggestive of ischemia. The left ventricular (LV) cavity appears normal. The right ventricular (RV) cavity appears normal. The left ventricular ejection fraction (EF) is normal at 62%. Gated SPECT images show normal LV wall motion and thickening. IMPRESSION:Myocardial perfusion stress test shows a small sized area of mild intensity reversible defect in apical segment suggestive of ischemia. Overall left ventricular function is normal without regional wallmotion abnormalities. Signed: Festus Sanchez [facility] Verified Date/Time: 10/23/2018 07:51:56 [id number] 04:49:00 Test Item Value Reference Range Interpretation Comments MAGNESIUM (BEAKER) (test code = 1.9 mg/dL 1.5-3.0 627) BASIC METABOLIC [id number] 04:49:00 Test Item Value Reference Range Interpretation Comments SODIUM (BEAKER) 138 meq/L 135-148 (test code = 381) POTASSIUM (BEAKER) 3.4 meq/L 3.6-5.5 L (test code = 379) CHLORIDE (BEAKER) 109 meq/L 98-106 H (test code = 382) CO2 (BEAKER) (test 21 meq/L 20-29 code = 355) BLOOD UREA NITROGEN 16 mg/dL 10-26 (BEAKER) (test code = 354) CREATININE (BEAKER) 0.90 mg/dL 0.50-1.20 (test code = 358) GLUCOSE RANDOM 84 mg/dL 70-110 (BEAKER) (test code = 652) CALCIUM (BEAKER) 10.1 mg/dL 8.5-10.5 (test code = 697) EGFR (BEAKER) (test 60 mL/min/1.73 ESTIMA MAAME GFR IS code = 1092) sq m NOT ACCURATE CREATININE CLEARANCE IN PREDICTING GLOMERULAR FILTRATION RATE . ESTIMATED GFR I S NOT APPLICABLE FOR DIALYSIS PATIEN TS. CBC W/PLT COUNT & AUTO [id number] 04:31:00 Test Item Value Reference Range Interpretation Comments WHITE BLOOD CELL COUNT (BEAKER) 9.8 K/ L 4.0-10.0 (test code = 775) RED BLOOD CELL COUNT (BEAKER) 4.50 M/ L 4.00-5.00 (test code = 761) HEMOGLOBIN (BEAKER) (test code = 13.3 GM/DL 12.0-15.5 410) HEMATOCRIT (BEAKER) (test code = 41.0 % 36.0-46.0 411) MEAN CORPUSCULAR VOLUME (BEAKER) 91.1 fL 82.0-99.0 (test code = 753) MEAN CORPUSCULAR HEMOGLOBIN 29.6 pg 27.0-33.0 (BEAKER) (test code = 751) MEAN CORPUSCULAR HEMOGLOBIN CONC 32.4 GM/DL 32.0-36.0 (BEAKER) (test code = 752) RED CELL DISTRIBUTION WIDTH 15.0 % 12.0-15.0 (BEAKER) (test code = 412) PLATELET COUNT (BEAKER) (test 219 K/CU MM 150-430 code = 756) MEAN PLATELET VOLUME (BEAKER) 10.0 fL 6.0-11.5 (test code = 754) NUCLEATED RED BLOOD CELLS 0 /100 WBC 0-0 (BEAKER) (test code = 413) NEUTROPHILS RELATIVE PERCENT 62 % (BEAKER) (test code = 429) LYMPHOCYTES RELATIVE PERCENT 27 % (BEAKER) (test code = 430) MONOCYTES RELATIVE PERCENT 9 % (BEAKER) (test code = 431) EOSINOPHILS RELATIVE PERCENT 0 % (BEAKER) (test code = 432) BASOPHILS RELATIVE PERCENT 1 % (BEAKER) (test code = 437) NEUTROPHILS ABSOLUTE COUNT 6.13 K/ L 1.80-8.00 (BEAKER) (test code = 670) LYMPHOCYTES ABSOLUTE COUNT 2.70 K/ L 1.48-4.50 (BEAKER) (test code = 414) MONOCYTES ABSOLUTE COUNT (BEAKER) 0.91 K/ L 0.00-1.30 (test code = 415) EOSINOPHILS ABSOLUTE COUNT 0.00 K/ L 0.00-0.50 (BEAKER) (test code = 416) BASOPHILS ABSOLUTE COUNT (BEAKER) 0.08 K/ L 0.00-0.20 (test code = 417) IMMATURE GRANULOCYTES-RELATIVE 0 % 0-0 PERCENT (BEAKER) (test code = 2801) BASIC METABOLIC [id number] 05:47:00 Test Item Value Reference Range Interpretation Comments SODIUM (BEAKER) 139 meq/L 135-148 (test code = 381) POTASSIUM (BEAKER) 4.1 meq/L 3.6-5.5 (test code = 379) CHLORIDE (BEAKER) 108 meq/L 98-106 H (test code = 382) CO2 (BEAKER) (test 23 meq/L 20-29 code = 355) BLOOD UREA NITROGEN 11 mg/dL 10-26 (BEAKER) (test code = 354) CREATININE (BEAKER) 0.85 mg/dL 0.50-1.20 (test code = 358) GLUCOSE RANDOM 82 mg/dL 70-110 (BEAKER) (test code = 652) CALCIUM (BEAKER) 10.0 mg/dL 8.5-10.5 (test code = 697) EGFR (BEAKER) (test 64 mL/min/1.73 ESTIMA MAAME GFR IS code = 1092) sq m NOT ACCURATE CREATININE CLEARANCE IN PREDICTING GLOMERULAR FILTRATION RATE . ESTIMATED GFR I S NOT APPLICABLE FOR DIALYSIS PATIEN TS. CBC W/PLT COUNT & AUTO [id number] 05:27:00 Test Item Value Reference Range Interpretation Comments WHITE BLOOD CELL COUNT (BEAKER) 8.7 K/ L 4.0-10.0 (test code = 775) RED BLOOD CELL COUNT (BEAKER) 4.28 M/ L 4.00-5.00 (test code = 761) HEMOGLOBIN (BEAKER) (test code = 12.7 GM/DL 12.0-15.5 410) HEMATOCRIT (BEAKER) (test code = 39.0 % 36.0-46.0 411) MEAN CORPUSCULAR VOLUME (BEAKER) 91.1 fL 82.0-99.0 (test code = 753) MEAN CORPUSCULAR HEMOGLOBIN 29.7 pg 27.0-33.0 (BEAKER) (test code = 751) MEAN CORPUSCULAR HEMOGLOBIN CONC 32.6 GM/DL 32.0-36.0 (BEAKER) (test code = 752) RED CELL DISTRIBUTION WIDTH 15.0 % 12.0-15.0 (BEAKER) (test code = 412) PLATELET COUNT (BEAKER) (test 205 K/CU MM 150-430 code = 756) MEAN PLATELET VOLUME (BEAKER) 9.8 fL 6.0-11.5 (test code = 754) NUCLEATED RED BLOOD CELLS 0 /100 WBC 0-0 (BEAKER) (test code = 413) NEUTROPHILS RELATIVE PERCENT 59 % (BEAKER) (test code = 429) LYMPHOCYTES RELATIVE PERCENT 30 % (BEAKER) (test code = 430) MONOCYTES RELATIVE PERCENT 9 % (BEAKER) (test code = 431) EOSINOPHILS RELATIVE PERCENT 0 % (BEAKER) (test code = 432) BASOPHILS RELATIVE PERCENT 1 % (BEAKER) (test code = 437) NEUTROPHILS ABSOLUTE COUNT 5.12 K/ L 1.80-8.00 (BEAKER) (test code = 670) LYMPHOCYTES ABSOLUTE COUNT 2.64 K/ L 1.48-4.50 (BEAKER) (test code = 414) MONOCYTES ABSOLUTE COUNT (BEAKER) 0.81 K/ L 0.00-1.30 (test code = 415) EOSINOPHILS ABSOLUTE COUNT 0.00 K/ L 0.00-0.50 (BEAKER) (test code = 416) BASOPHILS ABSOLUTE COUNT (BEAKER) 0.08 K/ L 0.00-0.20 (test code = 417) IMMATURE GRANULOCYTES-RELATIVE 0 % 0-0 PERCENT (BEAKER) (test code = 2801) LIPID [id number] 05:13:00 Test Item Value Reference Range Interpretation Comments TRIGLYCERIDES (BEAKER) (test code = 54 mg/dL 540) CHOLESTEROL (BEAKER) (test code = 140 mg/dL 631) HDL CHOLESTEROL (BEAKER) (test code 61 mg/dL = 976) LDL CHOLESTEROL CALCULATED (BEAKER) 68 mg/dL (test code = 633) Triglyceride Reference Range: Low Risk <150 Borderline 150-199 High Risk 200-499 Very High Risk >=500Cholesterol Reference Range: Low Risk <200 Borderline 200-239 High Risk >240HDL Cholesterol Reference Range: Low Risk >=60 High Risk <40LDL Cholesterol Reference Range: Optimal <100 Near Optimal 100-129 Borderline 130-159 High 160-189 Very High >=190BASIC METABOLIC [id number] 05:13:00 Test Item Value Reference Range Interpretation Comments SODIUM (BEAKER) 140 meq/L 135-148 (test code = 381) POTASSIUM (BEAKER) 3.7 meq/L 3.6-5.5 (test code = 379) CHLORIDE (BEAKER) 110 meq/L 98-106 H (test code = 382) CO2 (BEAKER) (test 22 meq/L 20-29 code = 355) BLOOD UREA NITROGEN 14 mg/dL 10-26 (BEAKER) (test code = 354) CREATININE (BEAKER) 0.97 mg/dL 0.50-1.20 (test code = 358) GLUCOSE RANDOM 89 mg/dL 70-110 (BEAKER) (test code = 652) CALCIUM (BEAKER) 10.4 mg/dL 8.5-10.5 (test code = 697) EGFR (BEAKER) (test 55 mL/min/1.73 ESTIMA MAAME GFR IS code = 1092) sq m NOT ACCURATE CREATININE CLEARANCE IN PREDICTING GLOMERULAR FILTRATION RATE . ESTIMATED GFR I S NOT APPLICABLE FOR DIALYSIS PATIEN TS. TROPONIN [id number] 05:13:00 Test Item Value Reference Range Interpretation Comments TROPONIN I (BEAKER) (test code = 0.03 ng/mL 0.00-0.03 397) Troponin I (TnI) levels must be interpreted in the context of the presenting symptoms and the clinical findings. Elevated TnI levels indicate myocardial damage, but are not specific for ischemic heart disease. Elevated TnI levels are seen in patients with other cardiac conditions (including myocarditis and congestive heart failure), and slight TnI elevations occur in patients with other conditions, including sepsis, renal failure, acidosis, acute neurological disease, and persistent tachyarrhythmia.CBC W/PLT COUNT & AUTO DIFFERENTIAL 2018-10-14 04:52:00 Test Item Value Reference Range Interpretation Comments WHITE BLOOD CELL COUNT (BEAKER) 8.6 K/ L 4.0-10.0 (test code = 775) RED BLOOD CELL COUNT (BEAKER) 4.19 M/ L 4.00-5.00 (test code = 761) HEMOGLOBIN (BEAKER) (test code = 12.6 GM/DL 12.0-15.5 410) HEMATOCRIT (BEAKER) (test code = 38.4 % 36.0-46.0 411) MEAN CORPUSCULAR VOLUME (BEAKER) 91.6 fL 82.0-99.0 (test code = 753) MEAN CORPUSCULAR HEMOGLOBIN 30.1 pg 27.0-33.0 (BEAKER) (test code = 751) MEAN CORPUSCULAR HEMOGLOBIN CONC 32.8 GM/DL 32.0-36.0 (BEAKER) (test code = 752) RED CELL DISTRIBUTION WIDTH 15.4 % 12.0-15.0 H (BEAKER) (test code = 412) PLATELET COUNT (BEAKER) (test 209 K/CU MM 150-430 code = 756) MEAN PLATELET VOLUME (BEAKER) 10.0 fL 6.0-11.5 (test code = 754) NUCLEATED RED BLOOD CELLS 0 /100 WBC 0-0 (BEAKER) (test code = 413) NEUTROPHILS RELATIVE PERCENT 60 % (BEAKER) (test code = 429) LYMPHOCYTES RELATIVE PERCENT 28 % (BEAKER) (test code = 430) MONOCYTES RELATIVE PERCENT 11 % (BEAKER) (test code = 431) EOSINOPHILS RELATIVE PERCENT 0 % (BEAKER) (test code = 432) BASOPHILS RELATIVE PERCENT 1 % (BEAKER) (test code = 437) NEUTROPHILS ABSOLUTE COUNT 5.19 K/ L 1.80-8.00 (BEAKER) (test code = 670) LYMPHOCYTES ABSOLUTE COUNT 2.40 K/ L 1.48-4.50 (BEAKER) (test code = 414) MONOCYTES ABSOLUTE COUNT (BEAKER) 0.91 K/ L 0.00-1.30 (test code = 415) EOSINOPHILS ABSOLUTE COUNT 0.00 K/ L 0.00-0.50 (BEAKER) (test code = 416) BASOPHILS ABSOLUTE COUNT (BEAKER) 0.09 K/ L 0.00-0.20 (test code = 417) IMMATURE GRANULOCYTES-RELATIVE 0 % 0-0 PERCENT (BEAKER) (test code = 2801) TROPONIN [id number] 02:22:00 Test Item Value Reference Range Interpretation Comments TROPONIN I (BEAKER) (test code = 0.03 ng/mL 0.00-0.03 397) Troponin I (TnI) levels must be interpreted in the context of the presenting symptoms and the clinical findings. Elevated TnI levels indicate myocardial damage, but are not specific for ischemic heart disease. Elevated TnI levels are seen in patients with other cardiac conditions (including myocarditis and congestive heart failure), and slight TnI elevations occur in patients with other conditions, including sepsis, renal failure, acidosis, acute neurological disease, and persistent tachyarrhythmia.TROPONIN [id number] 22:07:00 Test Item Value Reference Range Interpretation Comments TROPONIN I (BEAKER) (test code = 0.03 ng/mL 0.00-0.03 397) Troponin I (TnI) levels must be interpreted in the context of the presenting symptoms and the clinical findings. Elevated TnI levels indicate myocardial damage, but are not specific for ischemic heart disease. Elevated TnI levels are seen in patients with other cardiac conditions (including myocarditis and congestive heart failure), and slight TnI elevations occur in patients with other conditions, including sepsis, renal failure, acidosis, acute neurological disease, and persistent tachyarrhythmia.B-TYPE NATRIURETIC FACTOR (BNP) 2018-10-13 19:17:00 Test Item Value Reference Range Interpretation Comments B-TYPE NATRIURETIC PEPTIDE (BEAKER) 335 pg/mL 0-100 H (test code = 700) TROPONIN [id number] 19:13:00 Test Item Value Reference Range Interpretation Comments TROPONIN I (BEAKER) (test code = 0.03 ng/mL 0.00-0.03 397) Troponin I (TnI) levels must be interpreted in the context of the presenting symptoms and the clinical findings. Elevated TnI levels indicate myocardial damage, but are not specific for ischemic heart disease. Elevated TnI levels are seen in patients with other cardiac conditions (including myocarditis and congestive heart failure), and slight TnI elevations occur in patients with other conditions, including sepsis, renal failure, acidosis, acute neurological disease, and persistent tachyarrhythmia.BASIC METABOLIC [id number] 19:10:00 Test Item Value Reference Range Interpretation Comments SODIUM (BEAKER) 141 meq/L 135-148 (test code = 381) POTASSIUM (BEAKER) 3.9 meq/L 3.6-5.5 (test code = 379) CHLORIDE (BEAKER) 106 meq/L 98-106 (test code = 382) CO2 (BEAKER) (test 26 meq/L 20-29 code = 355) BLOOD UREA NITROGEN 18 mg/dL 10-26 (BEAKER) (test code = 354) CREATININE (BEAKER) 1.26 mg/dL 0.50-1.20 H (test code = 358) GLUCOSE RANDOM 148 mg/dL 70-110 H (BEAKER) (test code = 652) CALCIUM (BEAKER) 10.8 mg/dL 8.5-10.5 H (test code = 697) EGFR (BEAKER) (test 41 mL/min/1.73 ESTIMA MAAME GFR IS code = 1092) sq m NOT ACCURATE CREATININE CLEARANCE IN PREDICTING GLOMERULAR FILTRATION RATE . ESTIMATED GFR I S NOT APPLICABLE FOR DIALYSIS PATIEN TS. CBC W/PLT COUNT & AUTO [id number] 18:50:00 Test Item Value Reference Range Interpretation Comments WHITE BLOOD CELL COUNT (BEAKER) 7.3 K/ L 4.0-10.0 (test code = 775) RED BLOOD CELL COUNT (BEAKER) 4.07 M/ L 4.00-5.00 (test code = 761) HEMOGLOBIN (BEAKER) (test code = 12.0 GM/DL 12.0-15.5 410) HEMATOCRIT (BEAKER) (test code = 37.6 % 36.0-46.0 411) MEAN CORPUSCULAR VOLUME (BEAKER) 92.4 fL 82.0-99.0 (test code = 753) MEAN CORPUSCULAR HEMOGLOBIN 29.5 pg 27.0-33.0 (BEAKER) (test code = 751) MEAN CORPUSCULAR HEMOGLOBIN CONC 31.9 GM/DL 32.0-36.0 L (BEAKER) (test code = 752) RED CELL DISTRIBUTION WIDTH 15.1 % 12.0-15.0 H (BEAKER) (test code = 412) PLATELET COUNT (BEAKER) (test 211 K/CU MM 150-430 code = 756) MEAN PLATELET VOLUME (BEAKER) 10.0 fL 6.0-11.5 (test code = 754) NUCLEATED RED BLOOD CELLS 0 /100 WBC 0-0 (BEAKER) (test code = 413) NEUTROPHILS RELATIVE PERCENT 54 % (BEAKER) (test code = 429) LYMPHOCYTES RELATIVE PERCENT 34 % (BEAKER) (test code = 430) MONOCYTES RELATIVE PERCENT 10 % (BEAKER) (test code = 431) EOSINOPHILS RELATIVE PERCENT 0 % (BEAKER) (test code = 432) BASOPHILS RELATIVE PERCENT 1 % (BEAKER) (test code = 437) NEUTROPHILS ABSOLUTE COUNT 3.97 K/ L 1.80-8.00 (BEAKER) (test code = 670) LYMPHOCYTES ABSOLUTE COUNT 2.47 K/ L 1.48-4.50 (BEAKER) (test code = 414) MONOCYTES ABSOLUTE COUNT (BEAKER) 0.76 K/ L 0.00-1.30 (test code = 415) EOSINOPHILS ABSOLUTE COUNT 0.00 K/ L 0.00-0.50 (BEAKER) (test code = 416) BASOPHILS ABSOLUTE COUNT (BEAKER) 0.07 K/ L 0.00-0.20 (test code = 417) IMMATURE GRANULOCYTES-RELATIVE 0 % 0-0 PERCENT (BEAKER) (test code = 2801) RAD, CHEST, 1 VIEW, NON [id number] 18:24:00Reason for exam:->CHEST PAINShould this be performed at the bedside?->YesFINAL REPORT History: Chest pain. Comparison: 08/22/2016 Findings: A single view of the chest is submitted. The cardiac silhouette is within normal limits for size. There is atherosclerotic calcification of the tortuous aorta. The lungs are hyperinflated. Diffusely coarsened interstitial markings are nonspecific but may reflect chronic interstitial scarring, mild pulmonary interstitial edema or atypical pneumonitis. Curvilinear opacity in the left mid to lower lung is unchanged and suggests scarring. There is no dense focal consolidation, pneumothorax, large pleural effusion or acute bony abnormality. Signed: Ebony Dugan [facility] Verified Date/Time: 10/13/2018 18:24:37Reading Location: [address] Reading Room COMPREHENSIVE METABOLIC [id number] 18:17:00 Test Item Value Reference Range Interpretation Comments TOTAL PROTEIN 7.6 gm/dL 6.0-8.5 (BEAKER) (test code = 770) ALBUMIN (BEAKER) 3.9 g/dL 3.5-5.0 (test code = 1145) ALKALINE PHOSPHATASE 99 U/L 30-115 (BEAKER) (test code = 346) BILIRUBIN TOTAL 0.9 mg/dL 0.1-1.2 (BEAKER) (test code = 377) SODIUM (BEAKER) (test 129 meq/L 135-148 L code = 381) POTASSIUM (BEAKER) 4.3 meq/L 3.6-5.5 (test code = 379) CHLORIDE (BEAKER) 92 meq/L 98-106 L (test code = 382) CO2 (BEAKER) (test 25 meq/L 20-29 code = 355) BLOOD UREA NITROGEN 46 mg/dL 10-26 H (BEAKER) (test code = 354) CREATININE (BEAKER) 1.87 mg/dL 0.50-1.20 H (test code = 358) GLUCOSE RANDOM 89 mg/dL 70-110 (BEAKER) (test code = 652) CALCIUM (BEAKER) 10.7 mg/dL 8.5-10.5 H (test code = 697) AST (SGOT) (BEAKER) 25 U/L 5-40 (test code = 353) ALT (SGPT) (BEAKER) 14 U/L 5-50 (test code = 347) EGFR (BEAKER) (test 26 mL/min/1.73 ESTIMA MAAME GFR IS code = 1092) sq m NOT ACCURATE CREATININE CLEARANCE IN PREDICTING GLOMERULAR FILTRATION RATE . ESTIMATED GFR I S NOT APPLICABLE FOR DIALYSIS PATIEN TS. [id number] 18:02:00 Test Item Value Reference Range Interpretation Comments LIPASE (BEAKER) (test code = 749) 38 U/L 6-51 URINALYSIS W/ [id number] 17:53:00 Test Item Value Reference Range Interpretation Comments COLOR (BEAKER) (test code = 470) Yellow CLARITY (BEAKER) (test code = 469) Clear SPECIFIC GRAVITY UA (BEAKER) (test 1.010 1.001-1.035 code = 468) PH UA (BEAKER) (test code = 467) 5.5 5.0-8.0 PROTEIN UA (BEAKER) (test code = Negative Negative 464) GLUCOSE UA (BEAKER) (test code = Negative Negative 365) KETONES UA (BEAKER) (test code = Negative Negative 371) BILIRUBIN UA (BEAKER) (test code = Negative Negative 462) BLOOD UA (BEAKER) (test code = 461) Negative Negative NITRITE UA (BEAKER) (test code = Positive Negative A 465) LEUKOCYTE ESTERASE UA (BEAKER) Negative Negative (test code = 466) UROBILINOGEN UA (BEAKER) (test code 0.2 mg/dL 0.2-1.0 = 463) BACTERIA (BEAKER) (test code = 517) Many RBC UA-MANUAL (BEAKER) (test code = <5 /HPF 1659) WBC UA-MANUAL (BEAKER) (test code = <5 /HPF 1661) SQUAMOUS EPITHELIAL MANUAL (BEAKER) <5 /HPF (test code = 1663) SOURCE(BEAKER) (test code = 2795) CBC W/PLT COUNT & AUTO [id number] 17:46:00 Test Item Value Reference Range Interpretation Comments WHITE BLOOD CELL COUNT (BEAKER) 9.9 K/ L 4.0-10.0 (test code = 775) RED BLOOD CELL COUNT (BEAKER) 4.80 M/ L 4.00-5.00 (test code = 761) HEMOGLOBIN (BEAKER) (test code = 14.0 GM/DL 12.0-15.0 410) HEMATOCRIT (BEAKER) (test code = 40.0 % 36.0-45.0 411) MEAN CORPUSCULAR VOLUME (BEAKER) 83.3 fL 82.0-99.0 (test code = 753) MEAN CORPUSCULAR HEMOGLOBIN 29.2 pg 27.0-33.0 (BEAKER) (test code = 751) MEAN CORPUSCULAR HEMOGLOBIN CONC 35.0 GM/DL 32.0-36.0 (BEAKER) (test code = 752) RED CELL DISTRIBUTION WIDTH 16.4 % 10.3-14.2 H (BEAKER) (test code = 412) PLATELET COUNT (BEAKER) (test 202 K/CU MM 150-430 code = 756) MEAN PLATELET VOLUME (BEAKER) 9.9 fL 6.5-10.5 (test code = 754) NUCLEATED RED BLOOD CELLS 0 /100 WBC 0-0 (BEAKER) (test code = 413) NEUTROPHILS RELATIVE PERCENT 54 % (BEAKER) (test code = 429) LYMPHOCYTES RELATIVE PERCENT 35 % (BEAKER) (test code = 430) MONOCYTES RELATIVE PERCENT 8 % (BEAKER) (test code = 431) EOSINOPHILS RELATIVE PERCENT 2 % (BEAKER) (test code = 432) BASOPHILS RELATIVE PERCENT 1 % (BEAKER) (test code = 437) NEUTROPHILS ABSOLUTE COUNT 5.32 K/ L 1.80-8.00 (BEAKER) (test code = 670) LYMPHOCYTES ABSOLUTE COUNT 3.49 K/ L 1.48-4.50 (BEAKER) (test code = 414) MONOCYTES ABSOLUTE COUNT (BEAKER) 0.76 K/ L 0.00-1.30 (test code = 415) EOSINOPHILS ABSOLUTE COUNT 0.20 K/ L 0.00-0.50 (BEAKER) (test code = 416) BASOPHILS ABSOLUTE COUNT (BEAKER) 0.13 K/ L 0.00-0.20 (test code = 417)
[2021-12-08] MEDS ORDERED: HYOSCYAMINE SULF 0.125 MG TAB PO PRN (13:33)
[2021-12-08] MEDS ORDERED: ONDANSETRON 4 MG/2 ML VIAL IV PRN (13:34)
[2021-12-08] MEDS ORDERED: LORazepam 2 MG/ML VIAL IV PRN (13:34)
[2021-12-08] MEDS ORDERED: BISACODYL 10 MG RECTAL SUPP PR PRN (13:35)
[2021-12-08] MEDS ORDERED: ACETAMINOPHEN 650MG/RECT SUPP PR PRN (13:35)
[2021-12-08] MEDS ORDERED: SCOPOLAMINE HYDROBROMIDE PATCH TD SCH (13:45)
[2021-12-09] MEDS: HYDROMORPHONE HCL 1 MG/ML INJ IV PRN ×3 (03:21→09:28)
[2021-12-09 21:20] VITALS: O2SAT 93
[2021-12-10] MEDS: HYDROMORPHONE HCL 1 MG/ML INJ IV PRN ×2 (01:39→17:08)
[2021-12-10 22:17] VITALS: BP 140/66; TEMP 97.6
== END 2021-12-11 04:50 | disposition expired | DRG 951 ==
LOC: 2ND 13:00
PROVIDERS: ADMIT Internal Medicine Medical Oncology; ATTEND Internal Medicine Medical Oncology
DX: Z51.5 Encounter for palliative care (principal); I63.9 Cerebral infarction, unspecified
CPT/HCPCS: J1170